=== PATIENT | male | born 1985 | race Two or more races ===

== ENCOUNTER 2024-08-18 05:29 | Emergency (ER) | payer MEDICAID, SELFPAY ==
[2024-08-18 05:35] VITALS: BP 145/85; PULSE 90; PULSE 94; RESP 20; TEMP 37; O2SAT 96; BMI 25.0
--- NOTE | 2024-08-18 06:20 | XR_ITS ---
Examination: AP lateral chest 2 views TECHNIQUE: Upright AP lateral chest 2 views Exam date and time: August 18, 2024 1757 hours Comparison December 13, 2022 INDICATIONS: Chest pain onset today with swelling in the lower extremities. FINDINGS: Normal heart size Mild elevation left hemidiaphragm. No pneumonia or pulmonary edema IMPRESSION: No pneumonia or pulmonary edema
--- NOTE | 2024-08-18 06:20 | EKG_ITS ---
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
--- NOTE | 2024-08-18 06:46 | PD.EDLOWEX ---
Lower Extremity Injury RME/HPI General Chief Complaint: Extremity Injury, Lower Stated Complaint: BODY PAIN Time Seen by Provider: 08/18/24 06:13 Source: patient Arrival date/time: 08/18/24 05:29 39-year-old male with no known medical history presents to the emergency room with a chief complaint of generalized bodyaches and lower extremity swelling x 1 week Mode of arrival: ambulatory Limitations: no limitations Related Data Previous Rx's ?Medication ?Instructions ?Recorded polyethylene glycol 3350 17 gram 17 g PO QDAY #14 ea 12/17/22 oral powder packet (Miralax) Allergies Allergy/AdvReac Type Severity Reaction Status Date / Time Penicillins Allergy Severe ANAPHYLAXIS Verified 12/17/22 16:33 prochlorperazine Allergy Severe SHOCK Verified 12/17/22 16:33 Review of Systems Review of Systems Systems Reviewed: All systems reviewed, normal except as documented Constitutional Constitutional: Reports system reviewed and no additional complaints, except as documented, Denies fatigue, Denies fever(s), Denies headache(s) and Denies weakness Eyes Eyes: Reports system reviewed and no additional complaints, except as documented, Denies blurry vision and Denies change in vision ENT Ears, Nose, Mouth, and Throat: Reports system reviewed and no additional complaints, except as documented, Denies otalgia, Denies headache(s), Denies nasal congestion, Denies throat swelling and Denies vertigo Cardiovascular Cardiovascular: Reports system reviewed and no additional complaints, except as documented, Denies chest pain, Denies dyspnea and Denies dyspnea on exertion Respiratory Respiratory: Reports system reviewed and no additional complaints, except as documented, Denies chest congestion, Denies cough, Denies dyspnea, Denies dyspnea on exertion and Denies wheezing Gastrointestinal Gastrointestinal: Reports system reviewed and no additional complaints, except as documented, Denies abdominal pain, Denies cramping, Denies nausea and Denies vomiting Genitourinary Genitourinary: Reports system reviewed and no additional complaints, except as documented, Denies dysuria and Denies hematuria Musculoskeletal Musculoskeletal: Reports system reviewed and no additional complaints, except as documented, Reports arthralgias, Denies back pain and Reports joint swelling Integumentary/Breasts Skin/Breast: Reports system reviewed and no additional complaints, except as documented and Denies wounds Neurologic Neurologic: Reports system reviewed and no additional complaints, except as documented, Denies confusion, Denies headache(s), Denies lack of coordination, Denies vertigo and Denies weakness Psychiatric Psychiatric: Reports system reviewed and no additional complaints, except as documented, Denies anxiety, Denies confusion, Denies depression, Denies paranoia, Denies suicidal ideation and Denies tactile hallucinations Endocrine Endocrine: Reports system reviewed and no additional complaints, except as documented and Denies fatigue Hematologic/Lymphatic Hematologic/Lymphatic: Reports system reviewed and no additional complaints, except as documented and Denies lymphadenopathy Allergic/Immunologic Allergic/Immunologic: Reports system reviewed and no additional complaints, except as documented, Denies throat swelling, Denies urticaria and Denies wheezing ED Exam General Limitations: Present no limitations General appearance: Present alert and in no apparent distress Head Head exam: Present atraumatic Eye Eye exam: Present normal appearance, PERRL and EOMI ENT ENT exam: Present normal exam, normal oropharynx and mucous membranes moist Neck Neck exam: Present normal inspection, full ROM and trachea midline Chest Chest inspection: Present normal inspection and symmetric chest wall rise Respiratory Respiratory exam: Present normal lung sounds bilaterally Cardiovascular Cardiovascular exam: Present regular rate, normal rhythm and normal heart sounds Abdominal Exam Abdominal exam: Present soft and normal bowel sounds Extremities Exam Extremities exam: Present normal inspection and full ROM Expanded Lower Extremity Exam Hip/Pelvis exam: Present normal inspection Upper leg exam: Present normal inspection Knee exam: Present normal inspection Lower leg exam: Present full ROM, tenderness and swelling Ankle exam: Present full ROM, tenderness and swelling Foot/toe exam: Present full ROM, tenderness and swelling Back Exam Back exam: Present normal inspection and full ROM Neurological Exam Neurological exam: Present alert, oriented X3 and CN II-XII intact Psychiatric Psychiatric exam: Present normal affect and normal mood Skin Skin exam: Present warm, dry, intact and normal color Course Quality Measures none Orders Category Date Time Status EKG (ED ONLY) *Do not use* NOW Care 08/18/24 06:20 Completed EKG (ED Only) Stat Exams 08/18/24 06:20 Draft XR chest 2V Stat Exams 08/18/24 06:20 Taken B-Type Natriuretic Peptide Stat Lab 08/18/24 07:11 Completed CBC Stat Lab 08/18/24 07:11 Completed Comprehensive Metabolic Panel Stat Lab 08/18/24 07:11 Completed Drug Screen,Urine Stat Lab 08/18/24 06:20 Ordered Magnesium Stat Lab 08/18/24 07:11 Completed Troponin I Stat Lab 08/18/24 07:11 Completed Urinalysis Stat Lab 08/18/24 06:20 Ordered Vital Signs Vital signs: Vital Signs Temperature 98.6 F 08/18/24 05:35 Pulse Rate 94 08/18/24 05:35 Respiratory Rate 20 08/18/24 05:35 Blood Pressure 145/85 H 08/18/24 05:35 Pulse Oximetry (%) 96 08/18/24 05:35 Oxygen Delivery Method Room Air 08/18/24 05:35 Procedures -ED EKG Interpretation #1: Date of EK08/18/24 Rate: 83 Interpretation: Reviewed by me EKG Impression: Normal sinus rhythm Additional EKG comment: EKG shows normal sinus rhythm at [address] deviation Extremity Injury, Lower MDM Narrative MDM Narrative:: 39-year-old male with no known medical history presents to the emergency room with a chief complaint of generalized bodyaches and lower extremity swelling x 1 week Patient is hemodynamically stable and in no apparent distress Physical examination shows clear bilateral lung sounds. The patient has lower extremity bilateral +1 edema around the socks. Patient denies any medical problems. Patient denies any chest pain and states his legs just hurt when he walks for long periods of time. Patient is currently homeless and states that he uses methamphetamine and heroin. EKG was completed and shows normal sinus rhythm at [address] deviation. CBC CMP were negative for any acute findings. Troponin was negative. Chest x-ray was negative for any acute findings. Patient was discharged and educated to follow-up with primary care provider in the next 24 to 48 hours and return to the emergency room for any evidence of worsening signs or symptoms Patient data External records reviewed:: [facility] previous records Clinical information provided by:: patient Social determinants that could affect healthcare access:: none Patient has the following chronic illnesses:: No chronic illness How is presenting disease/condition affected by chronic disease/condition?: no chronic disease Evaluation data The following diagnostics were reviewed and interpreted by me:: lab results and radiology exam(s) Lab and/or radiology exams considered but not ordered:: Labs and radiology exams considered and ordered Interpretation Summary: N/A Medications / Prescriptions Medications or Prescriptions considered but not ordered:: No medication given Medication administrations:: No medication given Consultations Consultation(s) initiated? (list below): No Diagnosis Extremity Injury, Lower Differential Diagnosis: other (CHF/methamphetamine abuse/leg pain) Most likely diagnosis given after review of the tests above:: Methamphetamine abuse Admission Indicated Admission indicated?: not indicated Admission Request Was there a request for admission?: No Disposition Plan Disposition Plan: Discharge Discharge Attestation Discharge Attestation: The patient and all family members were given an opportunity to ask questions and understood the discharge instructions. Discharge instructions specifically effects, indications for sooner follow up or return to the emergency department, and the expected course of current diagnosis. Patient condition: Stable Discharge Plan Plan Patient Disposition: HOME (Self Care) Disposition Comment: Stable Prescriptions/Referrals Prescriptions/Med Rec: No Action polyethylene glycol 3350 [Miralax] 17 gram powder in packet 17 g PO QDAY Qty: 14 0RF Referrals: No Primary/Family,Physician [Primary Care Provider] - In 1 week Problem List Clinical Impression: Methamphetamine abuse Patient/Caregiver Discharge Instructions Education Materials: ED Drug Abuse Additional Instructions: Please follow-up with your primary care provider in the next 24 to 48 hours. Your blood work was negative for any acute findings. Please stop using methamphetamine and heroin as this is causing your health problems. For any evidence of worsening signs or symptoms return to the emergency room immediately Print Language: Belarusian Stand Alone Forms: Irina Award Info., Patient Portal Info Letter KERI/SULEMA Supervising Physician KERI/SULEMA Supervising Physician: Dr. Moya
[2024-08-18 07:29] VITALS: BP 143/85; PULSE 88; RESP 18; TEMP 37.2; O2SAT 98
[2024-08-18 07:41] LABS: Basophils % (Auto) 0 % (0-2.5); Eosinophils # (Auto) 0.1 Thou/mm3 (0.0-0.5); Eosinophils % (Auto) 1 % (0-10); Hematocrit 36.6 % (41.0-53.0); Hemoglobin 12.4 g/dL (13.5-16.0); Immature Granulocytes % (Auto) 0 % (0-0); Immature Granulocytes Auto 0.03 Thou/mm3 (0.00-0.00); Lymphocytes # (Auto) 1.4 Thou/mm3 (1.0-4.8); Lymphocytes % (Auto) 16 % (10-50); Mean Corpuscular HGB Conc 33.9 g/dl (31.0-37.0); Mean Corpuscular Hemoglobin 30.2 pg (25.0-35.0); Mean Corpuscular Volume 89 fL (80-100); Monocytes # (Auto) 0.9 Thou/mm3 (0.0-0.8); Monocytes % (Auto) 10 % (0-12); Neutrophils # (Auto) 6.7 Thou/mm3 (1.8-7.7); Neutrophils % (Auto) 73 % (37-80); Nucleated Red Blood Cell % 0 /100 WBC (0); Platelet Count 159 Thou/mm3 (140-440); RDW Standard Deviation 47.2 fL (35.1-43.9); Red Blood Count 4.11 Miln/mm3 (4.50-5.90); White Blood Count 9.2 Thou/mm3 (3.8-10.6)
[2024-08-18 07:50] LABS: Alanine Aminotransferase 328 U/L (10-49); Albumin, Serum 4.4 gm/dL (3.5-5.0); Albumin/Globulin Ratio 1.3 (1.2-2.2); Alkaline Phosphatase 54 U/L (46-116); Anion Gap 7 (7-16); Aspartate Amino Transferase 132 U/L (0-34); BUN/Creatinine Ratio 26 Ratio (12-20); Bilirubin,Total 1.5 mg/dL (0.3-1.2); Blood Urea Nitrogen 23 mg/dL (9-23); Calcium 9.4 mg/dL (8.3-10.6); Calcium (Corrected) 9.4 mg/dL (8.5-10.1); Carbon Dioxide 31.1 mMol/L (20.0-31.0); Chloride 98 mMol/L (98-107); Creatinine (Component) 0.9 mg/dL (0.6-1.3); Estimated Creatinine Clearance 107.7 mL/min (>60); Globulin 3.3 gm/dL (2.3-3.5); Glucose 130 mg/dL (74-106); Magnesium 1.8 mg/dL (1.6-2.6); Osmolality,Calculated 277 (275-295); Potassium 3.8 mMol/L (3.4-5.1); Sodium 136 mMol/L (136-145); Total Protein 7.7 gm/dL (5.7-8.2); Troponin I < 0.002 ng/mL (0.0-0.045); eGFR > 60 See Note
[2024-08-18 08:23] LABS: B-Type Natriuretic Peptide < 20 pg/mL (0-100)
== END 2024-08-18 09:36 | disposition home or self-care (01) ==
PROVIDERS: Nurse Practitioner Family; Emergency Provider Emergency Medicine
DX: F15.10 Other stimulant abuse, uncomplicated (principal); M79.89 Other specified soft tissue disorders; R07.9 Chest pain, unspecified; Z59.00 Homelessness unspecified
CPT/HCPCS: 36415; 71046; 80053; 80307; 81001; 83735; 83880; 84484; 85025; 93005; 99283

== ENCOUNTER 2024-12-18 13:46 | Emergency (ER) | payer MEDICAID, SELFPAY ==
[2024-12-18] VITALS (11 sets, daily range): BP systolic 163–198; BP diastolic 109–124; PULSE 102–113; RESP 16–18; TEMP 37.3–37.4; O2SAT 95–105; BMI 26.6
--- NOTE | 2024-12-18 13:50 | PC.NURSE ---
PT BROUGHT IN BY [facility] FOR MEDICAL CLEARANCE DUE TO HIGH B/P
--- NOTE | 2024-12-18 13:53 | PD.EDMEDCL ---
ED Medical Clearance RME/HPI General Chief complaint: Medical Clearance Stated complaint: HALF-WAY CLEARANCE HIGH B/P Time Seen by Provider: 12/18/24 13:52 Arrival date/time: 12/18/24 13:46 Limitations: no limitations RME / HPI RME / HPI Narrative: DR. HALEY MAIN ED EVALUATION: 39 year old male presents to the Emergency Department brought in by police as a medical clearance due to elevated blood pressure, noted at 198/124. He denies any associated symptoms such as headache, chest pain, or vision changes. He reports occasional alcohol use. Patient has no known past medical history, surgical history, or chronic medications. He does report a penicillin allergy. Related Information Previous Rx's ?Medication ?Instructions ?Recorded polyethylene glycol 3350 17 gram 17 g PO QDAY #14 ea 12/17/22 oral powder packet (Miralax) diltiazem HCl 180 mg 180 mg PO QDAY hypertension #30 12/18/24 capsule,extended release 24 hr caps (Cardizem CD) hydrochlorothiazide 25 mg tablet 25 mg PO QDAY #30 tabs 12/18/24 lisinopril 10 mg tablet 10 mg PO QDAY #30 tabs 12/18/24 Allergies Allergy/AdvReac Type Severity Reaction Status Date / Time Penicillins Allergy Severe ANAPHYLAXIS Verified 12/18/24 13:52 prochlorperazine Allergy Severe SHOCK Verified 12/18/24 13:52 Review of Systems Review of Systems Systems Reviewed: All systems reviewed, normal except as documented Past Medical History Past Medical History CARDIAC: Positive Cardiac Disorders and Hypertension GASTROINTESTINAL: Positive Hepatitis and Pancreatitis MUSCULOSKELETAL: Positive Rheumatoid Arthritis PSYCHO/SOCIAL: Positive Psychiatric Problems, Schizophrenia, Recreational Drug Use, Bipolar Disorder, Depression, Anxiety and Post Traumatic Stress Disorder OTHER HISTORY: Positive Autoimmune Disease and Chicken Pox Family History FAMILY HISTORY: Positive Family Psychiatric Problems, Family Respiratory Disorders, Family Cardiac Disorders, Family Gastrointestinal Problems, Family Cancer and Family Surgery Surgical History SURGICAL: Positive Abdominal Surgery Social History SMOKING STATUS: Never smoker SECOND HAND EXPOSURE: No SUBSTANCE USE: heroin ED Exam General Limitations: Present no limitations General appearance: Present alert, in no apparent distress and other (sitting up in a chair with hands cuffed to the back) Head Head exam: Present atraumatic, normocephalic and normal inspection Eye Eye exam: Present normal appearance, PERRL and EOMI ENT ENT exam: Present normal exam, normal oropharynx and mucous membranes moist Neck Neck exam: Present normal inspection, full ROM and trachea midline Chest Chest inspection: Present normal inspection and symmetric chest wall rise Respiratory Respiratory exam: Present normal lung sounds bilaterally Cardiovascular Cardiovascular exam: Present regular rate, normal rhythm and normal heart sounds Abdominal Exam Abdominal exam: Present soft and normal bowel sounds Extremities Exam Extremities exam: Present normal inspection and full ROM Back Exam Back exam: Present normal inspection and full ROM Neurological Exam Neurological exam: Present alert, oriented X3 and CN II-XII intact Psychiatric Psychiatric exam: Present normal affect and normal mood Skin Skin exam: Present warm, dry, intact and normal color Course Quality Measures none Orders Category Date Time Status EKG (ED ONLY) *Do not use* NOW Care 12/18/24 13:54 Completed Insert [Insert IV] NOW Care 12/18/24 16:55 Completed EKG (ED Only) Stat Exams 12/18/24 13:54 Draft CBC Stat Lab 12/18/24 14:16 Completed CMP [Comprehensive Metabolic Panel] Stat Lab 12/18/24 14:16 Completed Diltiazem Cd [Cardizem Cd] Med 12/18/24 13:53 Discontinued 180 mg PO X1 ONE Lisinopril [Prinivil] Med 12/18/24 15:58 Discontinued 10 mg PO X1 ONE cloNIDine HCL [Catapres] Med 12/18/24 13:53 Discontinued 0.1 mg PO X1 ONE cloNIDine HCL [Catapres] Med 12/18/24 15:57 Discontinued 0.2 mg PO X1 ONE hydrALAZINE INJ [Apresoline Inj] Med 12/18/24 16:55 Discontinued 5 mg IVP X1 ONE hydrALAZINE INJ [Apresoline Inj] Med 12/18/24 17:41 Discontinued 5 mg IVP X1 ONE hydrALAZINE INJ [Apresoline Inj] Med 12/18/24 18:26 Discontinued 5 mg IVP X1 ONE hydroCHLOROthiazide Med 12/18/24 15:58 Discontinued 25 mg PO X1 ONE Vital Signs Vital signs: Vital Signs Temperature 99.1 F 12/18/24 13:50 Pulse Rate 113 H 12/18/24 13:50 Respiratory Rate 16 12/18/24 13:50 Blood Pressure 198/124 H 12/18/24 13:50 Pulse Oximetry (%) 97 12/18/24 13:50 Oxygen Delivery Method Room Air 12/18/24 13:50 Medical Clearance MDM Narrative MDM Narrative:: I, Neelam Mc, am scribing for and in the presence of Dr. Haley. Patient data External records reviewed:: [facility] previous records Clinical information provided by:: patient and law enforcement Social determinants that could affect healthcare access:: alcohol use Patient has the following chronic illnesses:: Patient has no known past medical history, surgical history, or chronic medications. How is presenting disease/condition affected by chronic disease/condition?: no chronic disease Evaluation data The following diagnostics were reviewed and interpreted by me:: lab results and EKG tracing(s) Lab and/or radiology exams considered but not ordered:: none Interpretation Summary: My interpretation: EKG performed at 1434 hours, sinus tachycardia, rate 115, no acute changes, no STEMI Medications / Prescriptions Medications or Prescriptions considered but not ordered:: none Medication administrations:: Medication Administration History Discontinued Medications Clonidine (Clonidine Hcl 0.1 Mg Tablet) 0.1 mg PO X1 ONE Stop: 12/18/24 13:54 Last Admin: 12/18/24 14:13 Dose: 0.1 mg Documented By: [facility] Clonidine (Clonidine Hcl 0.1 Mg Tablet) 0.2 mg PO X1 ONE Stop: 12/18/24 15:58 Last Admin: 12/18/24 16:27 Dose: 0.2 mg Documented By: SERA Diltiazem HCl (Diltiazem Cd 180 Mg Capcr) 180 mg PO X1 ONE Stop: 12/18/24 13:54 Last Admin: 12/18/24 15:02 Dose: 180 mg Documented By: [facility] Hydralazine HCl (Hydralazine Inj 20 Mg/Ml Vial) 5 mg IVP X1 ONE Stop: 12/18/24 16:56 Last Admin: 12/18/24 17:33 Dose: 5 mg Documented By: SERA Hydralazine HCl (Hydralazine Inj 20 Mg/Ml Vial) 5 mg IVP X1 ONE Stop: 12/18/24 17:42 Last Admin: 12/18/24 18:02 Dose: 5 mg Documented By: SERA Hydralazine HCl (Hydralazine Inj 20 Mg/Ml Vial) 5 mg IVP X1 ONE Stop: 12/18/24 18:27 Last Admin: 12/18/24 18:30 Dose: 5 mg Documented By: SERA Hydrochlorothiazide (Hydrochlorothiazide 12.5 Mg Capsule) 25 mg PO X1 ONE Stop: 12/18/24 15:59 Last Admin: 12/18/24 16:26 Dose: 25 mg Documented By: SERA Lisinopril (Lisinopril 2.5 Mg Tablet) 10 mg PO X1 ONE Stop: 12/18/24 15:59 Last Admin: 12/18/24 16:27 Dose: 10 mg Documented By: SERA see above Consultations Consultation(s) initiated? (list below): No Diagnosis Medical Clearance Differential Diagnosis: other (hypertensive emergency/ urgency, hypertension) Most likely diagnosis given after review of the tests above:: Hypertension Admission Indicated Admission indicated?: not indicated Admission Request Was there a request for admission?: No Disposition Plan Disposition Plan: Discharge Discharge Attestation Discharge Attestation: The patient and all family members were given an opportunity to ask questions and understood the discharge instructions. Discharge instructions specifically effects, indications for sooner follow up or return to the emergency department, and the expected course of current diagnosis. Patient condition: Stable Discharge Plan Plan Patient Disposition: Assisted/Court/Law Prescriptions/Referrals Prescriptions/Med Rec: New diltiazem HCl [Cardizem CD] 180 mg capsule,extended release 24hr 180 mg PO QDAY MDD 1 Qty: 30 0RF lisinopril 10 mg tablet 10 mg PO QDAY Qty: 30 0RF hydrochlorothiazide 25 mg tablet 25 mg PO QDAY Qty: 30 0RF No Action polyethylene glycol 3350 [Miralax] 17 gram powder in packet 17 g PO QDAY Qty: 14 0RF Referrals: [facility] [Outside] - In 1 week Problem List Clinical Impression: Hypertension Patient/Caregiver Discharge Instructions Print Language: Palestinian
--- NOTE | 2024-12-18 13:54 | EKG_ITS ---
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
--- NOTE | 2024-12-18 14:20 | PC.NURSE ---
PHARMACY CALLED FOR DILTIAZEM
[2024-12-18 14:30] LABS: Basophils # (Auto) 0.0 Thou/mm3 (0.0-0.2); Basophils % (Auto) 0 % (0-2.5); Eosinophils # (Auto) 0.0 Thou/mm3 (0.0-0.5); Eosinophils % (Auto) 0 % (0-10); Hematocrit 43.3 % (41.0-53.0); Hemoglobin 14.9 g/dL (13.5-16.0); Immature Granulocytes Auto 0.03 Thou/mm3 (0.00-0.00); Lymphocytes # (Auto) 1.9 Thou/mm3 (1.0-4.8); Lymphocytes % (Auto) 22 % (10-50); Mean Corpuscular HGB Conc 34.4 g/dl (31.0-37.0); Mean Corpuscular Hemoglobin 30.3 pg (25.0-35.0); Mean Corpuscular Volume 88 fL (80-100); Monocytes # (Auto) 0.9 Thou/mm3 (0.0-0.8); Monocytes % (Auto) 10 % (0-12); Neutrophils # (Auto) 6.0 Thou/mm3 (1.8-7.7); Neutrophils % (Auto) 67 % (37-80); Nucleated Red Blood Cell # 0.00 Thou/mm3 (0.00-0.00); Nucleated Red Blood Cell % 0 /100 WBC (0); Platelet Count 153 Thou/mm3 (140-440); RDW Standard Deviation 49.8 fL (35.1-43.9); Red Blood Count 4.91 Miln/mm3 (4.50-5.90); White Blood Count 9.0 Thou/mm3 (3.8-10.6)
[2024-12-18 14:51] LABS: Alanine Aminotransferase 239 U/L (10-49); Albumin, Serum 4.9 gm/dL (3.5-5.0); Albumin/Globulin Ratio 1.4 (1.2-2.2); Alkaline Phosphatase 68 U/L (46-116); Anion Gap 10 (7-16); Aspartate Amino Transferase 87 U/L (0-34); BUN/Creatinine Ratio 17 Ratio (12-20); Bilirubin,Total 1.1 mg/dL (0.3-1.2); Blood Urea Nitrogen 20 mg/dL (9-23); Calcium 9.8 mg/dL (8.3-10.6); Calcium (Corrected) 9.8 mg/dL (8.5-10.1); Carbon Dioxide 28.2 mMol/L (20.0-31.0); Chloride 103 mMol/L (98-107); Creatinine (Component) 1.2 mg/dL (0.6-1.3); Estimated Creatinine Clearance 78.0 mL/min (>60); Globulin 3.4 gm/dL (2.3-3.5); Glucose 124 mg/dL (74-106); Osmolality,Calculated 284 (275-295); Potassium 3.5 mMol/L (3.4-5.1); Sodium 141 mMol/L (136-145); Total Protein 8.3 gm/dL (5.7-8.2); eGFR > 60 See Note
--- NOTE | 2024-12-18 14:52 | PC.NURSE ---
pharmacy called again for diltiazem
[2024-12-18] MEDS: DILTIAZEM CD 180 MG CAPCR PO (15:02)
[2024-12-18] MEDS: hydrALAZINE INJ 20 MG/ML VIAL 5 MG IVP ×3 (17:33→18:30)
--- NOTE | 2024-12-18 18:22 | PD.EDADDENDU ---
Emergency Room Addendum Addendum Narrative: I took over the care from previous shift physician, Dr. Haley, at 6 PM on 12/18/24. See previous notes for complete H & P and ED course. I reviewed all diagnostic test results. Diagnoses include: Treatment here included Larry Rai MD
== END 2024-12-18 18:56 ==
PROVIDERS: Emergency Provider Family Medicine
DX: Z02.89 Encounter for other administrative examinations (principal); I10 Essential (primary) hypertension; R00.0 Tachycardia, unspecified
CPT/HCPCS: 36415; 80053; 85025; 93005; 96374; 96376; 99283; J0360; A9270

== ENCOUNTER 2025-04-29 23:12 | Inpatient (IN) | payer MEDICAID, SELFPAY ==
--- NOTE | 2025-04-29 23:15 | XR_ITS ---
EXAMINATION: AP chest single view TECHNIQUE: AP portable upright chest single view Date and time: April [id number], 11:38 p.m. INDICATIONS: Shortness of breath today. FINDINGS: No significant cardiac enlargement taking into account AP projection Reduced inspiratory effort Mild elevation left hemidiaphragm No pneumonia or pulmonary edema IMPRESSION: No pneumonia or pulmonary edema
--- NOTE | 2025-04-29 23:15 | EDNOTE_ITS ---
ED Seizures RME/HPI General Chief Complaint: Seizure Stated Complaint: SEIZURES Time Seen by Provider: 04/29/25 23:14 Arrival date/time: 04/29/25 23:12 RME / HPI MD complaint: seizure Witnessed: yes - by bystander Trauma: Yes Seizure History: none Place: other (Correction) Possible Precipitating Event: none Associated symptoms: syncope RME / HPI Narrative: See MDM for Dr. Rai's HPI Documentation. Related Data Previous Rx's ?Medication ?Instructions ?Recorded polyethylene glycol 3350 17 gram 17 g PO QDAY #14 ea 0 12/17/22 oral powder packet (Miralax) diltiazem HCl 180 mg 180 mg PO QDAY hypertension #30 12/18/24 capsule,extended release 24 hr caps (Cardizem CD) hydrochlorothiazide 25 mg tablet 25 mg PO QDAY #30 tab s 12/18/24 lisinopril 10 mg tablet 10 mg PO QDAY #30 tabs 12/18 Allergies Allergy/AdvReac Type Severity Reaction Status Date / Time Penicillins Allergy Severe ANAPHYLAXIS Verified 12/18/24 13:52 prochlorperazine Allergy Severe SHOCK Verified 12/18/24 13:52 Review of Systems Review of Systems Systems Reviewed: All systems reviewed, normal except as documented Past Medical History Past Medical History CARDIAC: Positive Hypertension GASTROINTESTINAL: Positive Hepatitis and Pancreatitis MUSCULOSKELETAL: Positive Rheumatoid Arthritis PSYCHO/SOCIAL: Positive Psychiatric Problems, Schizophrenia, Recreational Drug Use, Bipolar Disorder, Depression, Anxiety and Post Traumatic Stress Disorder OTHER HISTORY: Positive Autoimmune Disease and Chicken Pox Family History FAMILY HISTORY: Positive Family Psychiatric Problems, Family Respiratory Disorders, Family Cardiac Disorders, Family Gastrointestinal Problems, Family Cancer and Family Surgery Surgical History SURGICAL: Positive Abdominal Surgery Social History SUBSTANCE USE: heroin ED Exam Narrative Physical exam: See [facility] for Dr. Rai's Physical Exam Documentation. Course Quality Measures none Orders Category Date Time Status EKG (ED ONLY) *Do not use* NOW Care 04/29/25 23:15 Completed Aceves [Urinary Catheter] NOW Care 04/30/25 00:50 Active Neuro Check Q2H Care 04/30/25 00:49 Active Saline [Insert IV] NOW Care 04/29/25 23:15 Active Seizure precautions NOW Care 04/30/25 00:49 Active Straight [In and Out Catheter] X1 Care 04/29/25 23:15 Completed Strict Intake and Output Q1H Care 04/30/25 01:00 Ordered Strict Intake and Output Q1H Care 04/30/25 02:00 Ordered Strict Intake and Output Q1H Care 04/30/25 03:00 Ordered Strict Intake and Output Q1H Care 04/30/25 04:00 Ordered Strict Intake and Output Q1H Care 04/30/25 05:00 Ordered Strict Intake and Output Q1H Care 04/30/25 06:00 Ordered Strict Intake and Output Q1H Care 04/30/25 07:00 Ordered Strict Intake and Output Q1H Care 04/30/25 08:00 Ordered Strict Intake and Output Q1H Care 04/30/25 09:00 Ordered Strict Intake and Output Q1H Care 04/30/25 10:00 Ordered Strict Intake and Output Q1H Care 04/30/25 11:00 Ordered Strict Intake and Output Q1H Care 04/30/25 12:00 Ordered Strict Intake and Output Q1 Care 04/30/25 13:00 Ordered Strict Intake and Output Q1H Care 04/30/25 14:00 Ordered Strict Intake and Output Q1H Care 04/30/25 15:00 Ordered Strict Intake and Output Q1H Care 04/30/25 16:00 Ordered Strict Intake and Output Q1 Care 04/30/25 17:00 Ordered Strict Intake and Output Q1 Care 04/30/25 18:00 Ordered Strict Intake and Output Q1H Care 04/30/25 19:00 Ordered Strict Intake and Output Q1H Care 04/30/25 20:00 Ordered Strict Intake and Output Q1H Care 04/30/25 21:00 Ordered Strict Intake and Output Q1H Care 04/30/25 22:00 Ordered Strict Intake and Output Q1H Care 04/30/25 23:00 Ordered Consult to Kindergarten Classroom Teacher Stat Cons 04/30/25 00:[address] cervical spine wo con Stat Exams 04/29/25 23:[address] chest abdomen pelvis wo Stat Exams 04/29/25 23:[address] head/brain wo con Stat Exams 04/29/25 23:16 Completed EKG (ED Only) Stat Exams 04/29/25 23:15 Ordered XR chest 1V portable Stat Exams 04/29/25 23:15 Completed ABG [Arterial Blood Gas] Stat Lab 04/30/25 01:20 Completed Alcohol, Blood Medical Stat Lab 04/29/25 23:20 Completed BMP [Basic Metabolic Panel] Q1H Lab 04/30/25 02:05 Completed BMP [Basic Metabolic Panel] Q1H Lab 04/30/25 03:05 Completed BMP [Basic Metabolic Panel] Q1H Lab 04/30/25 04:19 Completed BMP [Basic Metabolic Panel] Q1H Lab 04/30/25 05:14 Completed BMP [Basic Metabolic Panel] Q1H Lab 04/30/25 06:29 Completed Bilirubin,Direct Stat Lab 04/29/25 23:20 Completed CBC Stat Lab 04/29/25 23:20 Completed CK [Creatine Kinase] Stat Lab 04/29/25 23:20 Completed CMP [Comprehensive Metabolic Panel] Stat Lab 04/29/25 23:20 Completed CMP [Comprehensive Metabolic Panel] Stat Lab 04/30/25 01:03 Completed CRP [C-Reactive Protein] Stat Lab 04/29/25 23:20 Completed Creatine Kinase Stat Lab 04/30/25 01:03 Completed Drug Screen,Urine Stat Lab 04/29/25 23:23 Completed ESR [Sed Rate (ESR)] Stat Lab 04/29/25 23:20 Completed Hemoglobin A1C [Glycohemoglobin w (eAG)] Stat Lab 04/29/25 23:20 Completed Lactate (Lactic Acid) Stat Lab 04/30/25 01:03 Completed Lipid Panel Routine Lab 04/30/25 04:19 Completed Magnesium Routine Lab 04/30/25 02:05 Completed Magnesium Routine Lab 04/30/25 04:19 Completed Magnesium Stat Lab 04/29/25 23:20 Completed Procalcitonin Stat Lab 04/29/25 23:20 Completed TSH [Thyroid Stimulating Hormone] Stat Lab 04/29/25 23:20 Completed UA, C/S IF [Urinalysis, C/S if Indicated] Stat Lab 04/29/25 23:26 Completed VBG [Venous Blood Gas] Stat Lab 04/29/25 23:20 Completed Diazepam Inj [Valium Inj] Med 04/30/25 00:38 Active 20 mg IVP Q5MIN PRN LORazepam [Ativan Inj] Med 04/29/25 23:15 Discontinued 2 mg IVP X1 ONE Ondansetron Inj [Zofran Inj] Med 04/29/25 23:15 Discontinued 4 mg IVP X1 ONE POTASSIUM CHL 10 mEq IVPB [Kcl Ivpb] Med 04/30/25 00:47 Discontinued 10 meq in 100 ml IV Q1H SODIUM CHLORIDE 3%(Hypertonic) [Hypertonic Saline 3%] Med 04/30/25 00:37 Discontinued 500 ml Pre-Mixed [Pre-mixed Bag] 1 bag IV X1 Sodium Chloride 0.9% 1000 ml [Ns] 1,000 ml Med 04/29/25 23:15 Discontinued IV 999 mls/hr levETIRAcetam INJ [Keppra Inj] Med 04/29/25 23:15 Discontinued 2,000 mg IVP X1 ONE Vital Signs Vital signs: Vital Signs Temperature 98.4 F 04/29/25 23:20 Pulse Rate 105 H 04/29/25 23:20 Respiratory Rate 18 04/29/25 23:20 Blood Pressure 140/99 H 04/29/25 23:20 Pulse Oximetry (%) 100 04/29/25 23:20 Oxygen Delivery Method Room Air 04/29/25 23:20 Seizure MDM Narrative MDM Narrative:: This section includes all my notes and documentations, including HPI, PE, and ED course. Larry Rai MD HPI: 40 y/o male with Hx of RA, HTN, and Heroin Abuse BIBA from half-way after seizure. He was talking to his cellmate when he had the seizure. He fell and landed on the back of his head. Can't obtain history from the patient due to postictal state. ROS: Can't obtain from the patient due to current clinical condition. Physical Exam: General: In postictal state. Eyes:? Conjunctivae and lids clear.? EOMI.? PERRL. ENT:? No signs of head trauma. Neck:? Supple.? No tenderness. Heart:? RRR. Lungs:? No respiratory distress.? Good air movement.? No rhonchi, wheezing, rales.? Chest:? No tenderness. Abdomen:? Soft and nontender.? Back:? No tenderness.? Skin:? Warm and dry.? Neuro:? Cranial Nerves II-XII grossly intact.? No peripheral motor deficits. Musculoskeletal:? All major joints and bones are not tender with no limited ROM. I reviewed EMS and half-way notes. I reviewed all diagnostic test results: My interpretation of the EKG is: Sinus tachycardia (121 bpm) with nonspecific ST-T changes. My interpretation of the chest x-ray is: NAD. My review of the Head/Brain CT report is: No acute findings. My review of the C-Spine CT report is: No acute findings. My review of the Chest/Abdomen/Pelvis CT report is: Left lower lobe consolidation. Blood tests and urine tests remarkable for Na 107, K 2.8, LFT elevation, and CK 377. At this point, diagnoses include: Seizure Fall Hyponatremia Hypokalemia LFT elevation Rhabdomyolysis Treatment here included: IVF Keppra 2 G IV Zofran 4 mg IV Ativan 2 IV Ativan 2 mg Patient remained stable. I discussed the case with our raymond mill operator. About the presentation and exam and diagnostics and treatments here. And need of further care in the hospital. Will accept the patient. Larry Rai MD Patient data External records reviewed:: [facility] previous records (Reviewed prior ED records from 12/18/24. Patient was seen for Hypertension.) and EMS form Clinical information provided by:: patient, EMS and law enforcement Social determinants that could affect healthcare access:: housing (Incarcerated) Patient has the following chronic illnesses:: Hypertension, Hepatitis, Pancreatitis, Rheumatoid Arthritis, Schizophrenia, Recr eational Drug Use, Bipolar Disorder, Depression, Anxiety, Post Traumatic Stress Disorder How is presenting disease/condition affected by chronic disease/condition?: exacerbated by Evaluation data The following diagnostics were reviewed and interpreted by me:: lab results, radiology exam(s) and EKG tracing(s) (My interpretation of the EKG is: Sinus tachycardia (121 bpm) with nonspecific ST-T changes. Larry Rai MD) Lab and/or radiology exams considered but not ordered:: None Interpretation Summary: I reviewed all diagnostic test results: My interpretation of the EKG is: Sinus tachycardia (121 bpm) with nonspecific ST-T changes. My interpretation of the chest x-ray is: NAD. My review of the Head/Brain CT report is: No acute findings. My review of the C-Spine CT report is: No acute findings. My review of the Chest/Abdomen/Pelvis CT report is: Left lower lobe consolidation. Blood tests and urine tests remarkable for Na 107, K 2.8, LFT elevation, and CK 377. Medications / Prescriptions Medications or Prescriptions considered but not ordered:: None Medication administrations:: Medication Administration History Acetaminophen (Acetaminophen 325 Mg Tablet) 650 mg PO Q6H PRN PRN Reason: Fever >101.5 Stop: 05/30/25 02:18 Diazepam (Diazepam Inj 5 Mg/Ml Vial 2 Ml) 20 mg IVP Q5MIN PRN PRN Reason: SEIZURES Stop: 05/05/25 00:37 Heparin Sodium (Porcine) (Heparin Sod Inj 5000 Unit/Ml Vial) 5,000 unit SC Q8HR [facility] Stop: 05/14/25 05:59 Last Admin: 04/30/25 14:07 Dose: 5,000 unit Documented By: JEISON Co-signed By: anselmo Admin: 04/30/25 07:47 Dose: 5,000 unit Documented By: SHAWNEE Co-signed By: JEISON Dextrose (D5w) 1,000 mls @ 100 mls/hr IV .Q10H [facility] Stop: 05/01/25 07:14 Ondansetron HCl (Ondansetron Inj 2 Mg/Ml Inj 2 Ml) 4 mg IVP Q6H PRN; Protocol PRN Reason: NAUSEA OR VOMITING Stop: 05/30/25 02:18 Pantoprazole Sodium (Pantoprazole Inj 40 Mg Vial) 40 mg IVP QDAY [facility] Stop: 05/30/25 08:59 Last Admin: 04/30/25 08:29 Dose: 40 mg Documented By: JEISON Discontinued Medications Desmopressin Acetate (Desmopressin Acetate 4 Mcg/Ml Vial) 2 mcg IV X1 ONE Stop: 04/30/25 03:31 Last Admin: 04/30/25 03:29 Dose: 2 mcg Documented By: DAFNE Desmopressin Acetate (Desmopressin Acetate 4 Mcg/Ml Vial) 2 mcg IV X1 ONE Stop: 04/30/25 04:16 Last Admin: 04/30/25 04:27 Dose: 2 mcg Documented By: SHAWNEE Haloperidol Lactate (Haloperidol Lact Inj 5 Mg/Ml Vial) 10 mg IV X1 ONE Stop: 04/30/25 16:15 Last Admin: 04/30/25 16:16 Dose: 10 mg Documented By: anselmo Comments: severe agitation Haloperidol Lactate (Haloperidol Lact Inj 5 Mg/Ml Vial) Confirm Administered Dose 10 mg .ROUTE .STK-MED ONE Stop: 04/30/25 16:11 Last Admin: 04/30/25 16:31 Dose: Not Given Documented By: anselmo Non-Admin Reason: Duplicate Medication on eMAR Sodium Chloride (Ns) 1,000 mls @ 999 mls/hr IV .Q1H1M ONE Stop: 04/30/25 00:15 Last Infusion: 04/30/25 02:28 Dose: Infused Documented By: Admin: 04/29/25 23:47 Dose: 999 mls/hr Documented By: BOBBI Sodium Chloride 500 ml/ IV (Miscellaneous Supplies) 500 mls @ 30 mls/hr IV X1 ONE Stop: 04/30/25 17:16 Last Infusion: 04/30/25 01:59 Dose: 0 mls/hr Documented By: Admin: 04/30/25 00:50 Dose: 30 mls/hr Documented By: BOBBI Potassium Chloride (Kcl Ivpb) 10 meq in 100 mls @ 100 mls/hr IV Q1H [facility] Stop: 04/30/25 06:46 Last Admin: 04/30/25 07:06 Dose: 100 mls/hr Documented By: Infusion: 04/30/25 06:47 Dose: Infused Documented By: Admin: 04/30/25 05:47 Dose: 100 mls/hr Documented By: Infusion: 04/30/25 05:36 Dose: Infused Documented By: Admin: 04/30/25 04:36 Dose: 100 mls/hr Documented By: Infusion: 04/30/25 04:27 Dose: Infused Documented By: Admin: 04/30/25 03:27 Dose: 100 mls/hr Documented By: Infusion: 04/30/25 03:21 Dose: Infused Documented By: Admin: 04/30/25 02:21 Dose: 100 mls/hr Documented By: Infusion: 04/30/25 02:11 Dose: Infused Documented By: Admin: 04/30/25 01:11 Dose: 100 mls/hr Documented By: EE Dextrose (D5w) 1,000 mls @ 200 mls/hr IV .Q5H [facility] Stop: 05/30/25 04:14 Dextrose (D5w) 1,000 mls @ 150 mls/hr IV .Q6H40M [facility] Stop: 05/30/25 04:14 Last Infusion: 04/30/25 06:30 Dose: 230 mls/hr Documented By: Admin: 04/30/25 04:20 Dose: 150 mls/hr Documented By: MALLORY Magnesium Sulfate (Magnesium Sulfate Ivpb) 4 gm in 50 mls @ 12.5 mls/hr IV X1 ONE Stop: 04/30/25 08:15 Last Admin: 04/30/25 05:00 Dose: 12.5 mls/hr Documented By: MALLORY Dextrose (D5w) 1,000 mls @ 230 mls/hr IV .Q4H21M [facility] Stop: 05/30/25 04:14 Last Admin: 04/30/25 13:56 Dose: 230 mls/hr Documented By: Infusion: 04/30/25 13:43 Dose: Infused Documented By: Admin: 04/30/25 09:22 Dose: 230 mls/hr Documented By: Admin: 04/30/25 08:28 Dose: Not Given Documented By: JEISON Non-Admin Reason: already running when came on shift Dextrose (D5w) 1,000 mls @ 175 mls/hr IV .Q5H43M [facility] Stop: 05/30/25 14:32 Last Infusion: 04/30/25 17:38 Dose: Infused Documented By: anselmo Admin: 04/30/25 16:31 Dose: 175 mls/hr Documented By: anselmo Levetiracetam (Levetiracetam Inj 100 Mg/Ml Vial 5ml) 2,000 mg IVP X1 ONE Stop: 04/29/25 23:16 Last Admin: 04/29/25 23:46 Dose: 2,000 mg Documented By: BOBBI Lorazepam (Lorazepam 2 Mg/Ml Vial) 2 mg IVP X1 ONE Stop: 04/29/25 23:16 Last Admin: 04/29/25 23:46 Dose: 2 mg Documented By: BOBBI Lorazepam (Lorazepam 2 Mg/Ml Vial) 2 mg IVP X1 ONE Stop: 04/30/25 16:06 Last Admin: 04/30/25 16:09 Dose: 2 mg Documented By: anselmo Comments: agitation Ondansetron HCl (Ondansetron Inj 2 Mg/Ml Inj 2 Ml) 4 mg IVP X1 ONE; Protocol Stop: 04/29/25 23:16 Last Admin: 04/29/25 23:47 Dose: 4 mg Documented By: BOBBI Treatment here from [place] included: IVF Keppra 2 G IV Zofran 4 mg IV Ativan 2 IV Ativan 2 mg Consultations Consultation(s) initiated? (list below): Yes Consultation #1 (Physician, Specialty, Details): I discussed the case with our raymond mill operator. About the presentation and exam and diagnostics and treatments here. And need of further care in the hospital. Will accept the patient. Time: 00:06 Diagnosis Seizure Differential Diagnosis: intractable seizure disorder, focal seizure, generalized seizure, new onset seizure, epileptic seizure and status epilepticus Most likely diagnosis given after review of the tests above:: Seizure Fall Hyponatremia Hypokalemia LFT elevation Rhabdomyolysis Admission Indicated Admission indicated?: indicated Explain why admission is indicated or not indicated:: Seizure Fall Hyponatremia Hypokalemia LFT elevation Rhabdomyolysis Admission Request Was there a request for admission?: Yes Admission Attestation Admission request attestation: Discussed case with ICU service regarding admission. Discussed patients ED course, exam findings, labs, and radiology results. Agreed to accept the patient for admission. Disposition Plan Disposition Plan: Admit Critical Care Time Critical Care Time Critical Care Time: Yes Total Critical Care Time (min.): 36 Attestation: Due to a high probability of clinically significant, life threatening deterioration, the patient required my highest level of preparedness to intervene emergently and I personally spent this critical care time directly and personally managing the patient. This critical care time included obtaining a history; examining the patient; ordering and review of studies; arranging urgent treatment with development of a management plan; evaluation of patient's response to treatment; frequent reassessment; and discussions with family and other providers. It was exclusive of separately billable procedures and treating other patients and teaching time. Larry Rai MD Discharge Plan Plan Patient Disposition: Admit Acute Care w/in Hospital Problem List Clinical Impression: Seizure, Fall, Hyponatremia, Hypokalemia, LFT elevation, Rhabdomyolysis
[2025-04-29 23:16] VITALS: PULSE 120; BMI 26.6
--- NOTE | 2025-04-29 23:16 | XR_ITS ---
Examination: CT chest, without intravenous contrast. CT abdomen, without intravenous contrast. CT pelvis, without intravenous contrast. 2-D sagittal and coronal reconstructions. 3-D reconstructions. Date and time of exam: April 30, 2025, 0005 hours INDICATIONS: Seizure today, patient fell with injury to the chest and abdomen, chest pain abdomen pain CTDI vol (mgy) 12.61 DLP (MGycm) 900 Technique: Multiple CT images, 3.0 mm slice thickness, obtained chest, abdomen, pelvis, with the high-resolution 64 slice scanner.. Sagittal and coronal 2-D reconstructions are obtained. 3-D reconstructions Low dose protocols were performed. One or more of the following dose reduction techniques were used; automated exposure control, adjustment of the mA and/or KV according to patient size, use of iterative reconstruction technique. Findings: Thoracic aorta pulmonary arteries intact No pneumothorax pulmonary contusion or hemothorax Manubrium and body of the sternum intact Significant osteopenia for a patient of this age No acute thoracic lumbar or sacral fracture No acute displaced rib fractures Atelectasis in the left lower lobe No visualized liver splenic or renal lesion or laceration Gallstones Abdominal aorta intact, no free blood in the abdomen Negative for pneumoperitoneum No bowel obstruction Extensive artifact from arm immobilization devices Bones of the pelvis hips intact IMPRESSION: Thoracic aorta pulmonary arteries intact No pneumothorax pulmonary contusion Probable atelectasis in the left lower lobe No abdominal parenchymal laceration Cholelithiasis No abdominal parenchymal laceration Abdominal aorta intact No free blood in the abdomen or pelvis
--- NOTE | 2025-04-29 23:16 | XR_ITS ---
Examination: CT brain head without contrast. 2-D sagittal coronal reconstructions Date and time of exam: April 30, 2025, 0002 hours INDICATIONS: Seizure today, patient fell with injury to the head, head pain CTDI: vol (mGy): 53.40 DLP: (mGycm): 1022 Technique: Multiple CT axial sections of the brain have been obtained, 5 mm slice thickness. Contrast has not been administered. 2-D sagittal, coronal reconstructions have been obtained Low dose protocols were performed. One or more of the following dose reduction techniques were used; automated exposure control, adjustment of the mA and/or KV according to patient size, use of iterative reconstruction technique. Findings: No significant ventricular enlargement. Intra-axial or extra-axial hemorrhage density is not seen. No mass effect or midline shift Basal cisterns are not remarkable. Fourth ventricle is midline. Cranial vault intact. Impression: Negative for acute hemorrhage, mass effect or midline shift
--- NOTE | 2025-04-29 23:16 | XR_ITS ---
Examination: CT cervical spine without contrast 2-D sagittal reconstructions 2-D coronal reconstructions 3-D reconstructions. Exam date and time: April 30, 2025, 0004 hours INDICATIONS: Seizure today, patient fell with injury to the neck, neck pain CTDI:vol (mGy) 14.36 DLP: (mGycm) 390 Technique: Multiple 2 mm axial sections of the cervical spine have been obtained. The coronal and sagittal reconstructions have been obtained. 3-D reconstructions have been obtained. Low dose protocols were performed. One or more of the following dose reduction techniques were used; automated exposure control, adjustment of the mA and/or KV according to patient size, use of iterative reconstruction technique. Findings: Axial sections demonstrate intact base of the skull. C1 exhibit satisfactory relationship to the odontoid. No acute cervical vertebral body fracture seen. Alignment posterior spinous processes satisfactory. Impression: No acute cervical fracture.
[2025-04-29 23:20] VITALS: BP 140/99; PULSE 105; RESP 18; TEMP 36.9; O2SAT 100
[2025-04-29 23:34] LABS: Collection Type, Urine Clean Catch; Squamous Epithelial Cell,Urine 0 /hpf (0-5)
[2025-04-29 23:35] LABS: Base Excess, Venous -9 (-3-3); O2 Saturation, Venous 99 % (96-97); PCO2, Venous 28 mmHg (36-56); PO2, Venous 113 mmHg (15-58); pH, Venous 7.35 (7.33-7.66)
[2025-04-29 23:36] LABS: Basophils # (Auto) 0.0 Thou/mm3 (0.0-0.2); Basophils % (Auto) 0 % (0-2.5); Eosinophils # (Auto) 0.2 Thou/mm3 (0.0-0.5); Eosinophils % (Auto) 2 % (0-10); Hematocrit 34.1 % (41.0-53.0); Hemoglobin 12.9 g/dL (13.5-16.0); Immature Granulocytes Auto 0.03 Thou/mm3 (0.00-0.00); Lymphocytes # (Auto) 3.8 Thou/mm3 (1.0-4.8); Lymphocytes % (Auto) 42 % (10-50); Mean Corpuscular HGB Conc 37.8 g/dl (31.0-37.0); Mean Corpuscular Hemoglobin 31.5 pg (25.0-35.0); Mean Corpuscular Volume 83 fL (80-100); Monocytes # (Auto) 0.8 Thou/mm3 (0.0-0.8); Monocytes % (Auto) 9 % (0-12); Neutrophils # (Auto) 4.1 Thou/mm3 (1.8-7.7); Neutrophils % (Auto) 46 % (37-80); Nucleated Red Blood Cell # 0.00 Thou/mm3 (0.00-0.00); Nucleated Red Blood Cell % 0 /100 WBC (0); Platelet Count 170 Thou/mm3 (140-440); RDW Standard Deviation 38.8 fL (35.1-43.9); Red Blood Count 4.10 Miln/mm3 (4.50-5.90); White Blood Count 9.0 Thou/mm3 (3.8-10.6)
[2025-04-29 23:42] LABS: Bilirubin,Urine Negative (Negative); Blood,Urine Negative (Negative); Clarity,Urine Clear (Clear/Hazy); Color,Urine Colorless (Lt Yel-Yel); Culture Indicated,Urine Not Indicated; Glucose, Urine Negative (Negative); Ketones,Urine Negative (Negative); Leukocyte Esterase,Urine Negative (Negative); Nitrite,Urine Negative (Negative); PH,Urine 7.0 (5.0-7.0); Protein,Urine Negative (Neg - Trace); RBC,Urine < 1 /hpf (0-3); Specific Gravity,Urine 1.001 (1.001-1.035); Urobilinogen,Urine Negative mg/dL (0.0-1.0); WBC,Urine < 1 /hpf (0-5)
[2025-04-29] MEDS: LORazepam 2 MG/ML VIAL IVP (23:46)
[2025-04-29] MEDS: levETIRAcetam INJ 100 MG/ML VIAL 5ML 2000 MG IVP (23:46)
[2025-04-29] MEDS: ONDANSETRON INJ 2 MG/ML INJ 2 ML 4 MG IVP (23:47)
[2025-04-29] MEDS: SODIUM CHLORIDE 0.9% 1000 ML 1,000 ML 999 ML IV (23:47)
[2025-04-29 23:49] LABS: Amphetamine/Methamp Scrn,U Negative (Negative); Barbiturate Screen,Urine Negative (Negative); Benzodiazepines Screen,Urine Negative (Negative); Benzoylecgonine Screen, Ur Negative (Negative); Fentanyl Screen,Urine Negative (Negative); Opiate Screen,Urine Negative (Negative); THC Screen,Urine Negative (Negative)
[2025-04-30] VITALS (80 sets, daily range): BP systolic 105–178; BP diastolic 55–103; PULSE 57–112; RESP 11–100; TEMP 36.1–37; O2SAT 68–100
[2025-04-30 00:03] LABS: Alanine Aminotransferase 217 U/L (10-49); Albumin, Serum 5.1 gm/dL (3.5-5.0); Albumin/Globulin Ratio 2.0 (1.2-2.2); Alcohol, Blood Medical < 3.0 mg/dL (0-10.0); Alkaline Phosphatase 67 U/L (46-116); Anion Gap 19 (7-16); Aspartate Amino Transferase 99 U/L (0-34); BUN/Creatinine Ratio 7 Ratio (12-20); Bilirubin,Direct 0.6 mg/dL (0.0-0.3); Bilirubin,Total 1.4 mg/dL (0.3-1.2); Blood Urea Nitrogen 7 mg/dL (9-23); C-Reactive Protein < 0.5 mg/dL (0.0-0.9); Calcium 9.1 mg/dL (8.3-10.6); Calcium (Corrected) 9.1 mg/dL (8.5-10.1); Carbon Dioxide 15.1 mMol/L (20.0-31.0); Chloride 73 mMol/L (98-107); Creatine Kinase 377 U/L (34-171); Creatinine (Component) 1.0 mg/dL (0.6-1.3); Estimated Creatinine Clearance 96.0 mL/min (>60); Globulin 2.6 gm/dL (2.3-3.5); Glucose 155 mg/dL (74-106); Magnesium 1.6 mg/dL (1.6-2.6); Osmolality,Calculated 219 (275-295); Potassium 2.8 mMol/L (3.4-5.1); Procalcitonin 0.06 ng/ml (0.0-0.49); Thyroid Stimulating Hormone 3.88 uIU/mL (0.55-4.78); Total Protein 7.7 gm/dL (5.7-8.2); eGFR > 60 See Note
[2025-04-30 00:05] LABS: Sodium 107 mMol/L (136-145)
[2025-04-30 00:06] LABS: Sed Rate (ESR) 1 mm/hr (0-15)
[2025-04-30 00:19] LABS: Glucose Estimated Average 97 mg/dL (80-131); Hemoglobin A1C 5.0 % Hgb (4.8-6.0)
[2025-04-30] MEDS: SODIUM CHLORIDE 3%(Hypertonic) 500 ML in PRE-MIXED 1 BAG 30 ML IV (00:50)
[2025-04-30] MEDS: POTASSIUM CHL 10 mEq IVPB 10 MEQ/100 ML BAG 100 MEQ IV ×6 (01:11→07:06)
[2025-04-30 01:28] LABS: Lactate (Lactic Acid) 2.6 mMol/L (0.4-2.0)
[2025-04-30 01:32] LABS: Allen Test Performed/OK; Base Excess 0 (-3-3); HCO3 24 mEq/L (20-26); Inspired Oxygen, FIO2 21 %; O2 Saturation 98 % (91-98); PCO2 34 mmHg (32.0-48.0); PO2 90 mmHg (83-108); Puncture Site Right Radial; pH, Arterial 7.45 (7.35-7.45)
[2025-04-30 02:02] LABS: Alanine Aminotransferase 198 U/L (10-49); Albumin, Serum 4.6 gm/dL (3.5-5.0); Albumin/Globulin Ratio 1.8 (1.2-2.2); Alkaline Phosphatase 58 U/L (46-116); Anion Gap 11 (7-16); Aspartate Amino Transferase 94 U/L (0-34); BUN/Creatinine Ratio 9 Ratio (12-20); Bilirubin,Total 1.2 mg/dL (0.3-1.2); Blood Urea Nitrogen 7 mg/dL (9-23); Calcium 9.0 mg/dL (8.3-10.6); Calcium (Corrected) 9.0 mg/dL (8.5-10.1); Carbon Dioxide 21.3 mMol/L (20.0-31.0); Chloride 77 mMol/L (98-107); Creatine Kinase 684 U/L (34-171); Creatinine (Component) 0.8 mg/dL (0.6-1.3); Estimated Creatinine Clearance 119.9 mL/min (>60); Globulin 2.5 gm/dL (2.3-3.5); Glucose 122 mg/dL (74-106); Osmolality,Calculated 220 (275-295); Potassium 2.8 mMol/L (3.4-5.1); Total Protein 7.1 gm/dL (5.7-8.2); eGFR > 60 See Note
[2025-04-30 02:05] LABS: Sodium 109 mMol/L (136-145)
--- NOTE | 2025-04-30 02:10 | PRELIM_ITS ---
CT scan of the head without intravenous contrast (axial sections with sagittal and coronal reformats) April 30, 2025 0002 hours Clinical History: Seizure and head injury Comparison: None available at the time of this report. Findings: No evidence of intracranial hemorrhage, mass effect or midline shift. The ventricles and CSF spaces are unremarkable. The calvarium is intact. The mastoid air cells and the visualized paranasal sinuses are clear. Impression: No evidence of intracranial hemorrhage, midline shift or calvarial fracture. Report Electronically Signed By: Jose Puente 04/30/2025 2:10:19 AM [EST]
--- NOTE | 2025-04-30 02:11 | PRELIM_ITS ---
CT scan of the cervical spine without intravenous contrast (axial sections with sagittal and coronal reformats) April 30, 2025 0004 hours Clinical History: Trauma Comparison: None available at the time of this report. Findings: There is no fracture or subluxation. The prevertebral soft tissues are unremarkable. Impression: No evidence of fracture or subluxation. Report Electronically Signed By: Jose Puente 04/30/2025 2:11:03 AM [EST]
--- NOTE | 2025-04-30 02:27 | PRELIM_ITS ---
CT scan of the chest, abdomen and pelvis without intravenous contrast (axial sections with sagittal and coronal reformats) April 30, 2025 0005 hours Clinical History: Fall Comparison: None available at the time of this report. Findings: Left lower lobe consolidation. There is no pleural effusion or pneumothorax. The aorta is within normal limits for age on this noncontrast study. There is no mediastinal collection. There is no pericardial effusion. The liver, gallbladder, spleen, pancreas, adrenals and kidneys are unremarkable on this noncontrast study. The bowel is unremarkable. The urinary bladder is unremarkable. There is no free fluid or free air. Degenerative changes of the imaged portions of the spine. Chronic multilevel disc disease. No acute fractures. Vascular calcifications. Impression: No acute fractures. Left lower lobe consolidation, contusions versus pneumonia versus scarring versus atelectasis. Report Electronically Signed By: Jose Puente 04/30/2025 2:26:48 AM [EST]
[2025-04-30 03:05] LABS: Anion Gap 12 (7-16); BUN/Creatinine Ratio 7 Ratio (12-20); Blood Urea Nitrogen < 5 mg/dL (9-23); Calcium 9.1 mg/dL (8.3-10.6); Carbon Dioxide 18.7 mMol/L (20.0-31.0); Chloride 80 mMol/L (98-107); Creatinine (Component) 0.7 mg/dL (0.6-1.3); Estimated Creatinine Clearance 137.1 mL/min (>60); Glucose 106 mg/dL (74-106); Osmolality,Calculated 222 (275-295); Potassium 3.2 mMol/L (3.4-5.1); eGFR > 60 See Note
--- NOTE | 2025-04-30 03:11 | PD.RESHP ---
Documentation for date of: 04/30/25 HPI History of Present Illness Chief complaint: Seizure History of present illness: This patient is a 40-year-old male with past medical history of schizoaffective disorder and hypertension was brought in to the ED from [facility]/prison on 04/29/2025 with chief complaint of altered mental status/postictal confusion after an episode of seizure at the prison. Nurse was contacted from prison after calling at [phone] to get further history. She stated that patient had a seizure episode lasting for 3 minutes spontaneously seizing on its own. Patient did hit his head on the floor. He did not had a bladder or bowel incontinence however he remained in postictal confusion and was not responding. There was foaming seen around his mouth and he was having trouble breathing. Blood sugars at that time were 121 mg/dL and oxygen was placed. At baseline patient is alert and oriented x 3. He had no episode of seizures before. EMS arrived at the scene and found him confused and anxious and brought him to the ED. In the ED, patient's vital showed blood pressure 140/99 heart rate 105, respiratory rate 18 and afebrile. He was saturating well on room air. Labs showed hemoglobin 12.9, platelet 170. ABG showed pH 7.45, pCO2 34, pO2 90. Chemistry panel showed critical hyponatremia with sodium 107, hypokalemia potassium 2.8, hypochloremia chloride 73 with bicarb 15.1. Anion gap 19. BUN 7 and creatinine 1.0 baseline creatinine 0.9 from 08/18/2024. Blood glucose 155. A1c 5.0. Lactic acid 2.6. Magnesium 1.4. T. bili 1.4 down trended to 1.2. AST and ALT mildly elevated. AST 99 and ALT 217. Total creatinine kinase 377 down trended to 684. Troponin I was negative. Procalcitonin was negative. TSH within normal limits. Urinalysis was colorless with specific gravity 1.001. pH 7.0. U tox was negative. Chart review showed patient has hep C reactive antibody. COVID was negative. Head CT showed no acute changes. Cervical spine CT showed no evidence of fracture. CT chest showed left lower lobe consolidation, contusion versus pneumonia. Patient was given loading dose of Keppra 2 g x 1, IV Zofran, and Ativan 2 mg IV x 1, hypertonic saline 3% at 30 cc/h, IV 60 mEq KCl IV was started. As soon as Aceves catheter was placed patient started putting out less urine around 3.5 L therefore 3% hypertonic saline was stopped as repeat sodium showed spontaneous correction from 107->109->111 in 4 hours. Desmopressin was administered to IV 2 mcg x 1. However patient was still dumping urine around 1.8 L post first desmopressin therefore another desmopressin 2 mcg was administered and D5W at 150 cc/h were started to avoid rapid correction of sodium as recent sodium is 114. PMH: As above PSH: Nonsignificant Allergies: Penicillin and prochlorperazine causes shock SH: Remote history of drinking alcohol and history of meth use Home medications: Buspirone 10 mg once daily, Cardizem 180 mg once daily, hydrochlorothiazide 25 mg once daily, lisinopril 10 mg once daily, lithium 300 mg twice daily, olanzapine 10 mg once a day Patient is admitted to ICU for management of symptomatic hypoosmolar euvolemic hyponatremia with seizures due to medication [lithium] and possible psychogenic polydipsia. Review of Systems Review of Systems ROS Unobtainable: unobtainable due to mental status Past Medical History Past Medical History CARDIAC: Positive Hypertension GASTROINTESTINAL: Positive Hepatitis and Pancreatitis MUSCULOSKELETAL: Positive Rheumatoid Arthritis PSYCHO/SOCIAL: Positive Psychiatric Problems, Schizophrenia, Recreational Drug Use, Bipolar Disorder, Depression, Anxiety and Post Traumatic Stress Disorder OTHER HISTORY: Positive Autoimmune Disease and Chicken Pox Family History FAMILY HISTORY: Positive Family Psychiatric Problems, Family Respiratory Disorders, Family Cardiac Disorders, Family Gastrointestinal Problems, Family Cancer and Family Surgery Surgical History SURGICAL: Positive Abdominal Surgery Social History SUBSTANCE USE: heroin Exam Vital Signs Temp Pulse Resp BP Pulse Ox O2 Del Method 98 F 65 18 121/81 96 Room Air 04/30/25 01:59 04/30/25 02:30 04/30/25 02:30 04/30/25 01:59 04/30/25 01:59 04/30/25 01:59 Narrative Exam GENERAL APPEARANCE: Patient is alert but confused, opening his eyes spontaneously but not following commands. HEENT: NC, AT. Dry mucous membrane. EOMI, clear conjunctiva, oropharynx clear. NECK: Supple without lymphadenopathy. No stiffness or restricted ROM. HEART: Sinus tachycardia with regular rhythm, normal S1/S2, no m/r/g LUNGS: CTAB, moving air well. No crackles or wheezes are heard. ABDOMEN: Soft, nontender, nondistended with good bowel sounds heard. BACK: No CVAT, no obvious deformity. EXTREMITIES: Without cyanosis, clubbing or edema. NEUROLOGICAL: Grossly nonfocal. Alert and oriented, moving all 4 extremities. CN not formally tested but appear grossly intact. Skin: Warm and dry without any rash. Psych: Alert but confused not following commands Results: Labs 05/01/25 03:45 05/01/25 01:18 Labs: Short CBC 04/29/25 Range/Units 23:20 WBC 9.0 (3.8-10.6) Thou/mm3 Hgb 12.9 L (13.5-16.0) g/dL Hct 34.1 L (41.0-53.0) % Plt Count 170 (140-440) Thou/mm3 BMP 04/29/25 04/30/25 23:20 01:03 Sodium 107 L* 109 L* Potassium 2.8 L 2.8 L Chloride 73 L* 77 L* Carbon Dioxide 15.1 L 21.3 BUN 7 L 7 L Creatinine 1.0 0.8 Glucose 155 H 122 H Calcium 9.1 9.0 Cardiac Enzymes 04/29/25 04/30/25 Range/Units 23:20 01:03 Total Creatine Kinase 377 H 684 H D (34-171) U/L Liver Function 04/29/25 04/30/25 Range/Units 23:20 01:03 Total Bilirubin 1.4 H 1.2 (0.3-1.2) mg/dL Direct Bilirubin 0.6 H (0.0-0.3) mg/dL AST 99 H 94 H (0-34) U/L ALT 217 H 198 H (10-49) U/L Alkaline Phosphatase 67 58 (46-116) U/L Albumin 5.1 H 4.6 D (3.5-5.0) gm/dL Urine 04/29/25 Range/Units 23:26 Urine Color Colorless A (Lt Yel-Yel) Urine Clarity Clear (Clear/Hazy) Urine pH 7.0 (5.0-7.0) Ur Specific [place] 1.001 (1.001-1.035) Urine Protein Negative (Neg - Trace) Urine Glucose (UA) Negative (Negative) ABG Interpretation ABG results: 04/29/25 04/30/25 23:20 01:20 ABG pH 7.45 ABG pCO2 34 ABG pO2 90 ABG HCO3 24 ABG O2 Saturation 98 ABG Base Excess 0 VBG pH 7.35 VBG pCO2 28 L VBG pO2 113 H VBG Base Excess -9 L Quality Measures Quality Measures VTE prophylaxis (Heparin SC ) Medications Home Medications and Allergies Allergies Allergy/AdvReac Type Severity Reaction Status Date / Time Penicillins Allergy Severe ANAPHYLAXIS Verified 12/18/24 13:52 prochlorperazine Allergy Severe SHOCK Verified 12/18/24 13:52 Visit Medications Acetaminophen (Acetaminophen 325 Mg Tablet) 650 mg PO Q6H PRN PRN Reason: Fever >101.5 Stop: 05/30/25 02:18 Diazepam (Diazepam Inj 5 Mg/Ml Vial 2 Ml) 20 mg IVP Q5MIN PRN PRN Reason: SEIZURES Stop: 05/05/25 00:37 Heparin Sodium (Porcine) (Heparin Sod Inj 5000 Unit/Ml Vial) 5,000 unit SC Q8HR [facility] Stop: 05/14/25 05:59 Sodium Chloride 500 ml/ IV (Miscellaneous Supplies) 500 mls @ 30 mls/hr IV X1 ONE On Hold: 04/30/25 01:58 Stop: 04/30/25 17:16 Last Infusion: 04/30/25 01:59 Dose: 0 mls/hr Potassium Chloride (Kcl Ivpb) 10 meq in 100 mls @ 100 mls/hr IV Q1H [facility] Stop: 04/30/25 06:46 Last Admin: 04/30/25 02:21 Dose: 100 mls/hr Ondansetron HCl (Ondansetron Inj 2 Mg/Ml Inj 2 Ml) 4 mg IVP Q6H PRN; Protocol PRN Reason: NAUSEA OR VOMITING Stop: 05/30/25 02:18 Pantoprazole Sodium (Pantoprazole Inj 40 Mg Vial) 40 mg IVP QDAY [facility] Stop: 05/30/25 08:59 Discontinued Medications Sodium Chloride (Ns) 1,000 mls @ 999 mls/hr IV .Q1H1M ONE Stop: 04/30/25 00:15 Last Infusion: 04/30/25 02:28 Dose: Infused Levetiracetam (Levetiracetam Inj 100 Mg/Ml Vial 5ml) 2,000 mg IVP X1 ONE Stop: 04/29/25 23:16 Last Admin: 04/29/25 23:46 Dose: 2,000 mg Lorazepam (Lorazepam 2 Mg/Ml Vial) 2 mg IVP X1 ONE Stop: 04/29/25 23:16 Last Admin: 04/29/25 23:46 Dose: 2 mg Ondansetron HCl (Ondansetron Inj 2 Mg/Ml Inj 2 Ml) 4 mg IVP X1 ONE; Protocol Stop: 04/29/25 23:16 Last Admin: 04/29/25 23:47 Dose: 4 mg Assessment & Plan Plan This patient is a 40-year-old male with past medical history of schizoaffective disorder and hypertension was brought in to the ED from [facility]/prison on 04/29/2025 with chief complaint of altered mental status/postictal confusion after an episode of seizure at the prison. Patient is admitted to ICU for management of symptomatic hypoosmolar euvolemic hyponatremia with seizures due to medication [lithium] and possible psychogenic polydipsia. Neurology #Acute encephalopathy #Seizure with ground level fall #Symptomatic euvolemic hyponatremia DDx: [place] medication causing nephrogenic DI, psychogenic polydipsia, thiazide diuretics -Patient presented with witnessed seizure in the prison with postictal confusion. Patient is on lithium 300 mg twice daily, olanzapine 10 mg once daily and hydrochlorothiazide 25 mg once a day. -Patient possibly developed excessive thirst due to polyuria caused by lithium hence he drank more water causing hyponatremia -In the ED, patient's vital showed blood pressure 140/99 heart rate 105, respiratory rate 18 and afebrile. He was saturating well on room air. -Critical sodium 107, chloride 73 and potassium 2.8. -Patient was given loading dose of Keppra 2 g x 1, IV Zofran, and Ativan 2 mg IV x 1, hypertonic saline 3% at 30 cc/h, IV 60 mEq KCl IV was started. As soon as Aceves catheter was placed patient started putting out less urine around 3.5 L therefore 3% hypertonic saline was stopped as repeat sodium showed spontaneous correction from 107->109->111 in 4 hours. Desmopressin was administered to IV 2 mcg x 1. However patient was still dumping urine around 1.8 L post first desmopressin therefore another desmopressin 2 mcg was administered and D5W at 150 cc/h were started to avoid rapid correction of sodium as recent sodium is 114. Dx -Head CT was negative. -Cervical spine CT showed no acute fracture. -U tox was negative. Rx -Continue with D5W at 150 cc/h to prevent rapid correction of sodium - Goal of sodium correction 4 to 6 mEq in first 24 hours to avoid osmotic demyelination syndrome - Desmopressin given 4 mcg x 1 - Seizure precautions - Aspiration precautions - Versed for breakthrough seizure as needed Rxx -Neurochecks Q2 hourly -BMP Q1 hourly and then sodium checks Q1 hourly starting at 6:00 -Follow-up with lithium levels #History of schizoaffective disorder -Patient is on lithium 300 mg twice daily and olanzapine 10 mg once daily. Rx - Currently holding home meds due to critical hyponatremia - Versed for breakthrough seizures Cardiovascular #Mild hypotension - History of hypertension -Patient has been having polyuria attributing to soft blood pressure. Rx -Holding home thiazide diuretic due to hyponatremia -Holding lisinopril due to soft blood pressure #Remote history of methamphetamine use - Recent U tox was negative. Rx - No active intervention Respiratory No active issue GI and F/E/N #Mild hepatitis #History of hep C and hx of alcohol use -Patient has a history of reactive hep C antibody. - AST 94, ALT 198. T. bili 1.2. Rx - Follow-up with liver panel - Per chart review, hepatitis panel revealed hep C reactive antibody -Patient has remote history of drinking alcohol -No active intervention No active issue Renal #Symptomatic euvolemic hypoosmolar hyponatremia DDx: [place] medication causing nephrogenic DI with excess thirst, psychogenic polydipsia, thiazide diuretics -Patient presented with witnessed seizure in the prison with postictal confusion. Patient is on lithium 300 mg twice daily, olanzapine 10 mg once daily and hydrochlorothiazide 25 mg once a day. -Patient possibly developed excessive thirst due to polyuria caused by lithium hence he drank more water causing hyponatremia -In the ED, patient's vital showed blood pressure 140/99 heart rate 105, respiratory rate 18 and afebrile. He was saturating well on room air. -Critical sodium 107, chloride 73 and potassium 2.8. -Patient was given loading dose of Keppra 2 g x 1, IV Zofran, and Ativan 2 mg IV x 1, hypertonic saline 3% at 30 cc/h, IV 60 mEq KCl IV was started. As soon as Aceves catheter was placed patient started putting out less urine around 3.5 L therefore 3% hypertonic saline was stopped as repeat sodium showed spontaneous correction from 107->109->111 in 4 hours. Desmopressin was administered to IV 2 mcg x 1. However patient was still dumping urine around 1.8 L post first desmopressin therefore another desmopressin 2 mcg was administered and D5W at 150 cc/h were started to avoid rapid correction of sodium as recent sodium is 114. Dx -Head CT was negative. -Cervical spine CT showed no acute fracture. -U tox was negative. - 3 AM UO : 3.4 L -4 AM UO:2.4 L, In total : 5.8 L approx Rx -Continue with D5W at 150 cc/h to prevent rapid correction of sodium - Goal of sodium correction 4 to 6 mEq in first 24 hours to avoid osmotic demyelination syndrome - Desmopressin given 4 mcg x 1 - IV 60 mEq KCl given x 1 - Seizure precautions - Aspiration precautions - Versed for breakthrough seizure as needed - Consider nephrology consult Rxx -Neurochecks Q2 hourly -BMP Q1 hourly and then sodium checks Q1 hourly starting at 6:00 -Follow-up with lithium levels -Follow-up with urine electrolytes #Mild VERO,improving DDx: Rhabdomyolysis, lithium, thiazide - Patient presented with elevated BUN and creatinine initial was 1.2 down to 0.8 with baseline creatinine 0.9 from 08/18/2024. -Patient is on lithium 300 mg twice daily, HTCz 25 mg once daily and lisinopril 10 mg once daily Rx - Avoid nephrotoxic agents - Renally dose medications - Strict intake and output Rxx - Follow-up with lithium levels #Rhabdomyolysis -In the setting of seizure -Total CK went up from 377 to 684 Rx - Currently on D5W #Lactic acidosis -Initial lactic acid was 2 downtrended to 1.5. Rx - Trending lactic acid Q3 hourly Heme #Normocytic anemia -Patient came with hemoglobin of 13.2. Rx - PRBC if hemoglobin drops below 7 Rxx - Daily labs Endo #Mild hyperglycemia -A1c 5.0 Rx -Blood sugar checks Q6 hourly as patient is n.p.o. ID No active issue ICU health maintenance: DVT prophylaxis: Heparin SQ Q6 hourly GI prophylaxis: Protonix IV daily Diet: NPO Aceves: PLACED Lines: Peripherals Drips: D5W at 150 cc/h Vent: None CODE STATUS: Full code Reason of hospitalization:Patient is admitted to ICU for management of symptomatic hypoosmolar euvolemic hyponatremia with seizures due to medication [lithium] and possible psychogenic polydipsia. Patient discussed with my attending, Dr. Deangelo nelson MD, PGY 3 Attending Provider Attestation/Addendum After examining patient and review of the clinical data patient was found to have high probability of imminent deterioration which required my direct management and intervention TOTAL CC TIME: 60 MIN TOTAL TIME: 60 Minutes of direct medical management and planning of care. I Chhaya Bright MD, attest that I was physically present for martínez portions of evaluation, and examined patient, labs and imagings and plan of care were discussed with IM residents team, and I agree with the findings and plans documented above.
[2025-04-30 03:26] LABS: Magnesium 1.4 mg/dL (1.6-2.6)
[2025-04-30 03:27] LABS: Sodium 111 mMol/L (136-145)
[2025-04-30] MEDS: DESMOPRESSIN ACETATE 4 MCG/ML VIAL 2 MCG IV ×2 (03:29→04:27)
[2025-04-30 03:38] LABS: Anion Gap 10 (7-16); BUN/Creatinine Ratio 7 Ratio (12-20); Blood Urea Nitrogen 5 mg/dL (9-23); Calcium 9.3 mg/dL (8.3-10.6); Carbon Dioxide 23.1 mMol/L (20.0-31.0); Chloride 81 mMol/L (98-107); Creatinine (Component) 0.7 mg/dL (0.6-1.3); Estimated Creatinine Clearance 137.1 mL/min (>60); Glucose 108 mg/dL (74-106); Osmolality,Calculated 229 (275-295); Potassium 3.1 mMol/L (3.4-5.1); eGFR > 60 See Note
[2025-04-30 03:39] LABS: Sodium 114 mMol/L (136-145)
[2025-04-30] MEDS: DEXTROSE 5%-WATER 1,000 ML 150 ML IV (04:20)
[2025-04-30 04:21] LABS: Reflex Lactate? Y
[2025-04-30 04:26] LABS: COVID-19 Antigen (In-House) Negative (Negative)
[2025-04-30 04:57] LABS: Basophils # (Auto) 0.0 Thou/mm3 (0.0-0.2); Basophils % (Auto) 0 % (0-2.5); Eosinophils # (Auto) 0.0 Thou/mm3 (0.0-0.5); Eosinophils % (Auto) 0 % (0-10); Hematocrit 33.9 % (41.0-53.0); Hemoglobin 13.2 g/dL (13.5-16.0); Immature Granulocytes Auto 0.06 Thou/mm3 (0.00-0.00); Lymphocytes # (Auto) 0.9 Thou/mm3 (1.0-4.8); Lymphocytes % (Auto) 10 % (10-50); Mean Corpuscular HGB Conc 38.9 g/dl (31.0-37.0); Mean Corpuscular Hemoglobin 31.7 pg (25.0-35.0); Mean Corpuscular Volume 82 fL (80-100); Monocytes # (Auto) 0.7 Thou/mm3 (0.0-0.8); Monocytes % (Auto) 8 % (0-12); Neutrophils # (Auto) 7.8 Thou/mm3 (1.8-7.7); Neutrophils % (Auto) 82 % (37-80); Nucleated Red Blood Cell # 0.00 Thou/mm3 (0.00-0.00); Nucleated Red Blood Cell % 0 /100 WBC (0); Platelet Count 169 Thou/mm3 (140-440); RDW Standard Deviation 37.4 fL (35.1-43.9); Red Blood Count 4.16 Miln/mm3 (4.50-5.90); White Blood Count 9.6 Thou/mm3 (3.8-10.6)
[2025-04-30] MEDS: Magnesium Sulfate 4 GM Ivpb 4 GM/50 ML BAG IV (05:00)
[2025-04-30 05:21] LABS: Lactic Acid, 3 HR 1.5 mMol/L (0.4-2.0)
[2025-04-30 05:26] LABS: Anion Gap 8 (7-16); BUN/Creatinine Ratio 6 Ratio (12-20); Blood Urea Nitrogen < 5 mg/dL (9-23); Calcium 9.0 mg/dL (8.3-10.6); Carbon Dioxide 23.7 mMol/L (20.0-31.0); Cardiac Risk Estimate 2.1 RATIO (4.0-6.7); Chloride 82 mMol/L (98-107); Cholesterol 121 mg/dL (132-200); Creatinine (Component) 0.8 mg/dL (0.6-1.3); Estimated Creatinine Clearance 119.9 mL/min (>60); Glucose 121 mg/dL (74-106); HDL Cholesterol 58 mg/dL (40-60); LDL Cholesterol,Calculated 52 mg/dL (0-130); Magnesium 1.8 mg/dL (1.6-2.6); Osmolality,Calculated 229 (275-295); Potassium 3.4 mMol/L (3.4-5.1); Triglycerides 55 mg/dL (30-150); eGFR > 60 See Note
[2025-04-30 05:27] LABS: Sodium 114 mMol/L (136-145)
[2025-04-30 06:24] LABS: Anion Gap 13 (7-16); BUN/Creatinine Ratio 6 Ratio (12-20); Blood Urea Nitrogen 5 mg/dL (9-23); Calcium 9.0 mg/dL (8.3-10.6); Carbon Dioxide 18.2 mMol/L (20.0-31.0); Chloride 83 mMol/L (98-107); Creatinine (Component) 0.8 mg/dL (0.6-1.3); Estimated Creatinine Clearance 119.9 mL/min (>60); Glucose 148 mg/dL (74-106); Osmolality,Calculated 231 (275-295); Potassium 3.3 mMol/L (3.4-5.1); eGFR > 60 See Note
[2025-04-30 06:40] LABS: Sodium 114 mMol/L (136-145)
[2025-04-30 07:15] LABS: Anion Gap 9 (7-16); BUN/Creatinine Ratio 6 Ratio (12-20); Blood Urea Nitrogen 5 mg/dL (9-23); Calcium 9.1 mg/dL (8.3-10.6); Carbon Dioxide 24.4 mMol/L (20.0-31.0); Chloride 81 mMol/L (98-107); Creatinine (Component) 0.8 mg/dL (0.6-1.3); Estimated Creatinine Clearance 119.9 mL/min (>60); Glucose 180 mg/dL (74-106); Osmolality,Calculated 233 (275-295); Potassium 4.3 mMol/L (3.4-5.1); eGFR > 60 See Note
--- NOTE | 2025-04-30 07:35 | ESPR_ITS ---
Documentation for date of: 04/30/25 Subjective Subjective Interval history: This is a 40-year-old male who is brought in from care home for seizure and hyponatremia. The patient has a history of schizoaffective disorder and is on lithium at the care home. Overnight the patient was agitated at some point in time and given Ativan. This morning the patient is sedated. He is net -1.6 L. His sodium has been correcting rather rapidly and he is on D5W. Unclear if he is still altered this morning due to the hyponatremia versus postictal. Critical Care Note Critical care time (min.): 40 Exam Vital Signs Temp Pulse Resp BP Pulse Ox O2 Del Method 97.0 F 64 12 117/70 100 Room Air 04/30/25 06:31 04/30/25 07:15 04/30/25 07:15 04/30/25 07:15 04/30/25 07:15 04/30/25 06:31 Narrative Exam General-no acute distress, sedated, normal body habitus HEENT-normocephalic, atraumatic, sclera icteric, oral mucosa is dry, adequate dentition, pupils are equal and reactive Chest-lungs clear to auscultation bilaterally, heart regular, no bruits murmurs auscultated on exam, no increased work of breathing Abdomen-soft, nontender, bowel sounds present, no rebound or guarding, well- healed surgical scars present Extremities-no edema of lower extremities, pulses palpable, no clubbing or mottling, there are significant skin indentations and beginning of tissue injury noted where metal restraints are in place over the patient's wrist and ankles Drips D5W Physical Exam Completion Physical Exam Complete?: Yes Objective - [employer] Labs 05/01/25 03:45 05/01/25 07:14 Labs: Laboratory Results - last 24 hr 04/29/25 04/29/25 04/29/25 23:20 23:23 23:26 WBC 9.0 RBC 4.10 L Hgb 12.9 L Hct 34.1 L MCV 83 MCH 31.5 MCHC 37.8 H RDW Std Deviation 38.8 Plt Count 170 Neut % (Auto) 46 Lymph % (Auto) 42 Crisp % (Auto) 9 Eos % (Auto) 2 Baso % (Auto) 0 Neut # (Auto) 4.1 Lymph # (Auto) 3.8 Crisp # (Auto) 0.8 Eos # (Auto) 0.2 Baso # (Auto) 0.0 Immature Gran # (Auto) 0.03 H Absolute Nucleated RBC 0.00 Immature Gran % 0 Nucleated RBC % 0 ESR 1 Puncture Site ABG pH ABG pCO2 ABG pO2 ABG HCO3 ABG O2 Saturation ABG Base Excess VBG pH 7.35 VBG pCO2 28 L VBG pO2 113 H VBG O2 Sat (Karie) 99 H VBG Base Excess -9 L FiO2 Sodium 107 L* Potassium 2.8 L Chloride 73 L* Carbon Dioxide 15.1 L Anion Gap 19 H BUN 7 L Creatinine 1.0 Estim Creat Clear Calc 96.0 eGFR > 60 BUN/Creatinine Ratio 7 L Glucose [address] Glu mg/dL 97 Hemoglobin A1c 5.0 Calculated Osmolality 219 L Lactic Acid Calcium 9.1 Corrected Calcium 9.1 Magnesium 1.6 Total Bilirubin 1.4 H Direct Bilirubin 0.6 H AST 99 H ALT 217 H Alkaline Phosphatase 67 Total Creatine Kinase 377 H C-Reactive Prot, Quant < 0.5 Total Protein 7.7 Albumin 5.1 H Globulin 2.6 Albumin/Globulin Ratio 2.0 Triglycerides Cholesterol LDL Cholesterol, Calc HDL Cholesterol Cholesterol/HDL Ratio Procalcitonin 0.06 TSH 3.88 Ur Collection Type Clean Catch Urine Color Colorless A Urine Clarity Clear Urine pH 7.0 Ur Specific [place] 1.001 Urine Protein Negative Urine Glucose (UA) Negative Urine Ketones Negative Urine Blood Negative Urine Nitrite Negative Urine Bilirubin Negative Urine Urobilinogen (Auto) Negative Ur Leukocyte Esterase Negative Urine RBC < 1 Urine WBC < 1 Ur Squamous Epith Cells 0 Urine Bacteria None Ur Culture Indicated? Not Indicated Urine Opiates Screen Negative Urine Fentanyl Screen Negative Ur Barbiturates Screen Negative U Amphetamin/Meth Scrn Negative U Benzodiazepines Scrn Negative U Cocaine Metab Screen Negative U Marijuana (THC) Screen Negative Ethyl Alcohol < 3.0 SARS-CoV-2 Ag (Rapid) 04/30/25 04/30/25 04/30/25 01:03 01:20 02:05 WBC RBC Hgb Hct MCV MCH MCHC RDW Std Deviation Plt Count Neut % (Auto) Lymph % (Auto) Crisp % (Auto) Eos % (Auto) Baso % (Auto) Neut # (Auto) Lymph # (Auto) Crisp # (Auto) Eos # (Auto) Baso # (Auto) Immature Gran # (Auto) Absolute Nucleated RBC Immature Gran % Nucleated RBC % ESR Puncture Site Right Radial ABG pH 7.45 ABG pCO2 34 ABG pO2 90 ABG HCO3 24 ABG O2 Saturation 98 ABG Base Excess 0 VBG pH VBG pCO2 VBG pO2 VBG O2 Sat (Karie) VBG Base Excess FiO2 21 Sodium 109 L* 111 L* Potassium 2.8 L 3.2 L Chloride 77 L* 80 L Carbon Dioxide 21.3 18.7 L Anion Gap 11 12 BUN 7 L < 5 L Creatinine 0.8 0.7 Estim Creat Clear Calc 119.9 137.1 eGFR > 60 > 60 BUN/Creatinine Ratio 9 L 7 L Glucose [address] Glu mg/dL Hemoglobin A1c Calculated Osmolality 220 L 222 L Lactic Acid 2.6 H Calcium 9.0 9.1 Corrected Calcium 9.0 Magnesium 1.4 L Total Bilirubin 1.2 Direct Bilirubin AST 94 H ALT 198 H Alkaline Phosphatase 58 Total Creatine Kinase 684 H D C-Reactive Prot, Quant Total Protein 7.1 Albumin 4.6 D Globulin 2.5 Albumin/Globulin Ratio 1.8 Triglycerides Cholesterol LDL Cholesterol, Calc HDL Cholesterol Cholesterol/HDL Ratio Procalcitonin TSH Ur Collection Type Urine Color Urine Clarity Urine pH Ur Specific [place] Urine Protein Urine Glucose (UA) Urine Ketones Urine Blood Urine Nitrite Urine Bilirubin Urine Urobilinogen (Auto) Ur Leukocyte Esterase Urine RBC Urine WBC Ur Squamous Epith Cells Urine Bacteria Ur Culture Indicated? Urine Opiates Screen Urine Fentanyl Screen Ur Barbiturates Screen U Amphetamin/Meth Scrn U Benzodiazepines Scrn U Cocaine Metab Screen U Marijuana (THC) Screen Ethyl Alcohol SARS-CoV-2 Ag (Rapid) 04/30/25 04/30/25 04/30/25 03:05 03:08 04:19 WBC 9.6 RBC 4.16 L Hgb 13.2 L Hct 33.9 L MCV 82 MCH 31.7 MCHC 38.9 H RDW Std Deviation 37.4 Plt Count 169 Neut % (Auto) 82 H Lymph % (Auto) 10 Crisp % (Auto) 8 Eos % (Auto) 0 Baso % (Auto) 0 Neut # (Auto) 7.8 H Lymph # (Auto) 0.9 L Crisp # (Auto) 0.7 Eos # (Auto) 0.0 Baso # (Auto) 0.0 Immature Gran # (Auto) 0.06 H Absolute Nucleated RBC 0.00 Immature Gran % 1 H Nucleated RBC % 0 ESR Puncture Site ABG pH ABG pCO2 ABG pO2 ABG HCO3 ABG O2 Saturation ABG Base Excess VBG pH VBG pCO2 VBG pO2 VBG O2 Sat (Karie) VBG Base Excess FiO2 Sodium 114 L* 114 L* Potassium 3.1 L 3.4 Chloride 81 L 82 L Carbon Dioxide 23.1 23.7 Anion Gap 10 8 BUN 5 L < 5 L Creatinine 0.7 0.8 Estim Creat Clear Calc 137.1 119.9 eGFR > 60 > 60 BUN/Creatinine Ratio 7 L 6 L Glucose [address] Glu mg/dL Hemoglobin A1c Calculated Osmolality 229 L 229 L Lactic Acid Calcium 9.3 9.0 Corrected Calcium Magnesium 1.8 Total Bilirubin Direct Bilirubin AST ALT Alkaline Phosphatase Total Creatine Kinase C-Reactive Prot, Quant Total Protein Albumin Globulin Albumin/Globulin Ratio Triglycerides 55 Cholesterol 121 L LDL Cholesterol, Calc 52 HDL Cholesterol 58 Cholesterol/HDL Ratio 2.1 L Procalcitonin TSH Ur Collection Type Urine Color Urine Clarity Urine pH Ur Specific [place] Urine Protein Urine Glucose (UA) Urine Ketones Urine Blood Urine Nitrite Urine Bilirubin Urine Urobilinogen (Auto) Ur Leukocyte Esterase Urine RBC Urine WBC Ur Squamous Epith Cells Urine Bacteria Ur Culture Indicated? Urine Opiates Screen Urine Fentanyl Screen Ur Barbiturates Screen U Amphetamin/Meth Scrn U Benzodiazepines Scrn U Cocaine Metab Screen U Marijuana (THC) Screen Ethyl Alcohol SARS-CoV-2 Ag (Rapid) Negative 04/30/25 05:14 WBC RBC Hgb Hct MCV MCH MCHC RDW Std Deviation Plt Count Neut % (Auto) Lymph % (Auto) Crisp % (Auto) Eos % (Auto) Baso % (Auto) Neut # (Auto) Lymph # (Auto) Crisp # (Auto) Eos # (Auto) Baso # (Auto) Immature Gran # (Auto) Absolute Nucleated RBC Immature Gran % Nucleated RBC % ESR Puncture Site ABG pH ABG pCO2 ABG pO2 ABG HCO3 ABG O2 Saturation ABG Base Excess VBG pH VBG pCO2 VBG pO2 VBG O2 Sat (Karie) VBG Base Excess FiO2 Sodium 114 L* Potassium 3.3 L Chloride 83 L Carbon Dioxide 18.2 L Anion Gap 13 BUN 5 L Creatinine 0.8 Estim Creat Clear Calc 119.9 eGFR > 60 BUN/Creatinine Ratio 6 L Glucose [address] Glu mg/dL Hemoglobin A1c Calculated Osmolality 231 L Lactic Acid 1.5 Calcium 9.0 Corrected Calcium Magnesium Total Bilirubin Direct Bilirubin AST ALT Alkaline Phosphatase Total Creatine Kinase C-Reactive Prot, Quant Total Protein Albumin Globulin Albumin/Globulin Ratio Triglycerides Cholesterol LDL Cholesterol, Calc HDL Cholesterol Cholesterol/HDL Ratio Procalcitonin TSH Ur Collection Type Urine Color Urine Clarity Urine pH Ur Specific [place] Urine Protein Urine Glucose (UA) Urine Ketones Urine Blood Urine Nitrite Urine Bilirubin Urine Urobilinogen (Auto) Ur Leukocyte Esterase Urine RBC Urine WBC Ur Squamous Epith Cells Urine Bacteria Ur Culture Indicated? 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 He still has not returned to baseline. Will obtain an EEG. Schizoaffective disorder-hold lithium and follow-up on levels Seizure-no known history of seizure disorder. This may be secondary to the patient's hyponatremia. Follow-up with EEG and head CT. Will obtain a neuro eval. CV Hypertension-patient is unable to take p.o. meds at this time. His current blood pressure is within parameters. Will hold for now. Resp Stable Renal Hyponatremia-patient presented with a sodium of 107. He has dumped a significant amount of urine with a sodium currently of 114. D5W was started and his last draw returned at 113. Corrected no faster than 6 mill equivalents in the first 24 hours therefore target sodium would be 113 -Will obtain urine studies -Patient is on hydrochlorothiazide as an outpatient, this will be stopped Hypokalemia-this has been repleted GI Transaminitis-patient has had elevated LFTs since 2018. Follow-up on abdomen/pelvis CT taken earlier today. Patient's hepatitis panel from 2019 showed positive for hep C. Repeat an acute viral panel and if this continues to be positive does need to follow-up with GI for hepatitis C. Will evaluate his medications to see if his elevated LFTs may also be related to drug-induced liver injury. Endo Hyperglycemia-likely due to the patient's D5W Heme DVT prophylaxis-Lovenox ID Stable Case discussed with ICU team Labs imaging and records reviewed Approximately 40 critical care minutes required for evaluation, exam, review, dimension, discussion formulation of plan of care for this critically ill patient with severe hyponatremia and seizures who is at high risk for further and ongoing decompensation. Provider Notation Provider Notation: Although this document has been carefully reviewed, there may still be some phonetic and other typographical errors. These errors are purely grammatical due to imperfections in the software program and should not be construed in any way to compromise the substance of the patient's medical care during this visit. Thank you for the opportunity and privilege in assisting you with this patient's care and management.
[2025-04-30] MEDS: HEPARIN SOD INJ 5000 UNIT/ML VIAL SC ×3 (07:47→21:30)
[2025-04-30 07:58] LABS: Lithium 0.24 mEq/L (1.00-1.20)
[2025-04-30 07:59] LABS: Sodium 114 mMol/L (136-145)
[2025-04-30 08:03] LABS: Sodium 113 mMol/L (136-145)
[2025-04-30] MEDS: DEXTROSE 5%-WATER 1,000 ML 230 ML IV ×2 (09:22→13:56)
[2025-04-30 09:44] LABS: Sodium 113 mMol/L (136-145)
--- NOTE | 2025-04-30 09:46 | PC.SS ---
Addendum entered by Fanta Lockett 04/30/25 13:55: Megan Hinds [phone] contacted SS and stated she is patient's NOK effective today, 04/30/25. Registration Sandhya contacted and NOK contact updated to reflect Sibling Megan Hinds [phone] [address] [place] [address]. Alternate contact for Megan # [phone]. Addendum entered by Fanta Lockett 04/30/25 13:40: [phone] contacted, a message was left requesting a return call. Received call from patient's aunt Swati who angrily expressed not to be contacted and stated patient's mother Jnen Dangelo 5yrs. ago. Swati's concerns were validated and greeting card writer apologized for any cause of distress. Swati stated she would inform patient's sister Megan and she would contact SS if she wished to reconnect with patient. SS explained importance of NOK contact due to patient having no one listed on his medical record. Call was disconnected by Swati. Original Note: Jenn Dangelo [phone] contact was found in previous historical chart. Attempted to contact, unrelated male to Jenn Dangelo stated this was no longer her contact number. SS to attempt to reconnect with patient when he's coherent. Attempted to meet with patient at bedside to complete initial assessment. Patient unable to provide responses. At bedside, Officer Brayan stated patient was to be released from their custody shortly and Sgt. Singh en route to sign off on release of custody. Officer Brayan contacted [facility] to obtain NOK information; he was unsuccessful. Instructor Painting stated patient does not have NOK. Officer Brayan provided historical home address [address] [address].
[2025-04-30 10:14] LABS: Sodium 114 mMol/L (136-145)
--- NOTE | 2025-04-30 10:52 | ESPR_ITS ---
<Statement entered by Roger See MD - 04/30/25 17:09> Patient is seen and examined at bedside. Admitted overnight in view of seizures secondary to suspected hyponatremia with sodium of 107. Patient was given only 10 mL of hypertonic saline and later it was discontinued. Later as the sodium continued to climb up for, to prevent rapid overcorrection patient was started on D5W at 230 mL/h. On physical examination, patient still noted to be altered but no further episodes of seizures. Continue to trend sodium and as the sodium dropped down to 112, decreased the rate of D5W to 50 mL/h. Will continue sodium checks and manage accordingly. 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 urine electrolytes were not collected during the night. [place] levels were checked and the levels are less than normal. I have personally seen and examined the patient, agree with residents assessment and plan Patient plan of care was discussed with the attending physician, Dr. Ede See, PGY2 Documentation for date of: 04/30/25 Subjective Subjective Interval history: History of present illness: This patient is a 40-year-old male with past medical history of schizoaffective disorder and hypertension was brought in to the ED from [facility]/intermediate on 04/29/2025 with chief complaint of altered mental status/postictal confusion after an episode of seizure at the intermediate. Nurse was contacted from intermediate after calling at [phone] to get further history. She stated that patient had a seizure episode lasting for 3 minutes spontaneously seizing on its own. Patient did hit his head on the floor. He did not had a bladder or bowel incontinence however he remained in postictal confusion and was not responding. There was foaming seen around his mouth and he was having trouble breathing. Blood sugars at that time were 121 mg/dL and oxygen was placed. At baseline patient is alert and oriented x 3. He had no episode of seizures before. EMS arrived at the scene and found him confused and anxious and brought him to the ED. In the ED, patient's vital showed blood pressure 140/99 heart rate 105, respiratory rate 18 and afebrile. He was saturating well on room air. Labs showed hemoglobin 12.9, platelet 170. ABG showed pH 7.45, pCO2 34, pO2 90. Chemistry panel showed critical hyponatremia with sodium 107, hypokalemia potassium 2.8, hypochloremia chloride 73 with bicarb 15.1. Anion gap 19. BUN 7 and creatinine 1.0 baseline creatinine 0.9 from 08/18/2024. Blood glucose 155. A1c 5.0. Lactic acid 2.6. Magnesium 1.4. T. bili 1.4 down trended to 1.2. AST and ALT mildly elevated. AST 99 and ALT 217. Total creatinine kinase 377 down trended to 684. Troponin I was negative. Procalcitonin was negative. TSH within normal limits. Urinalysis was colorless with specific gravity 1.001. pH 7.0. U tox was negative. Chart review showed patient has hep C reactive antibody. COVID was negative. Head CT showed no acute changes. Cervical spine CT showed no evidence of fracture. CT chest showed left lower lobe consolidation, contusion versus pneumonia. Patient was given loading dose of Keppra 2 g x 1, IV Zofran, and Ativan 2 mg IV x 1, hypertonic saline 3% at 30 cc/h, IV 60 mEq KCl IV was started. As soon as Aceves catheter was placed patient started putting out less urine around 3.5 L therefore 3% hypertonic saline was stopped as repeat sodium showed spontaneous correction from 107->109->111 in 4 hours. Desmopressin was administered to IV 2 mcg x 1. However patient was still dumping urine around 1.8 L post first desmopressin therefore another desmopressin 2 mcg was administered and D5W at 150 cc/h were started to avoid rapid correction of sodium as recent sodium is 114. PMH: As above PSH: Nonsignificant Allergies: Penicillin and prochlorperazine causes shock SH: Remote history of drinking alcohol and history of meth use Home medications: Buspirone 10 mg once daily, Cardizem 180 mg once daily, hydrochlorothiazide 25 mg once daily, lisinopril 10 mg once daily, lithium 300 mg twice daily, olanzapine 10 mg once a day (compliant for several months in intermediate) Patient is admitted to ICU for management of symptomatic hypoosmolar euvolemic hyponatremia with seizures due to medication [lithium] and possible psychogenic polydipsia. 04/30/2025: Patient was admitted overnight. No acute events overnight. Patient was not cooperative with examination, but was noted to have movement in all 4 extremities and resisted against this movement of the patient's bilateral upper extremities. The patient was continued on D5W as the patient's sodium remained in goal of around 113. Security that was with the patient left early in the morning and noted that the patient no longer needs an officer from the intermediate to watch the patient. Later that day, the patient became more agitated and attempted to get out of the bed during lab draw for the patient's sodium check. At that time, nursing staff noted that the patient stated shut up and I can't even get up . Patient was initially given lorazepam, but this was ineffective, so Haldol was administered, resulting in the patient calming down. Repeat sodium drawn at that time showed a sodium of 111, so D5W was discontinued. Will repeat sodium at 1900 to reassess for need for D5W. Exam Vital Signs Temp Pulse Resp BP Pulse Ox O2 Del Method 98.6 F 61 16 124/68 100 Room Air 04/30/25 08:00 04/30/25 09:30 04/30/25 09:30 04/30/25 09:30 04/30/25 09:30 04/30/25 06:31 Narrative Exam Physical Exam: General: Alert, no acute distress. Opens eyes spontaneously but does not follow commands. Skin: Warm, dry, intact. Head: Normocephalic, atraumatic. Eye: Normal conjunctiva, PERRL. Throat: Oral mucosa dry. No obvious lesions in oropharynx. Cardiovascular: Regular rate and rhythm, no murmur, +S1/S2. Respiratory: Lungs are clear to auscultation, respirations unlabored, no crackles, no wheezing. Gastrointestinal: Soft, nontender, non-distended. No guarding or rebound tenderness. Extremities: No edema, no cyanosis, no clubbing. 2+ radial pulse bilaterally, 2+ pedal pulse bilaterally. Neuro: No focal deficits observed. Moving all extremities. No overt cerebellar signs/incoordination. Psychiatric: Noncooperative. Objective Labs 04/30/25 04:19 04/30/25 16:20 Labs: Laboratory Results - last 24 hr 04/29/25 04/29/25 04/29/25 23:20 23:23 23:26 WBC 9.0 RBC 4.10 L Hgb 12.9 L Hct 34.1 L MCV 83 MCH 31.5 MCHC 37.8 H RDW Std Deviation 38.8 Plt Count 170 Neut % (Auto) 46 Lymph % (Auto) 42 Angelina % (Auto) 9 Eos % (Auto) 2 Baso % (Auto) 0 Neut # (Auto) 4.1 Lymph # (Auto) 3.8 Angelina # (Auto) 0.8 Eos # (Auto) 0.2 Baso # (Auto) 0.0 Immature Gran # (Auto) 0.03 H Absolute Nucleated RBC 0.00 Immature Gran % 0 Nucleated RBC % 0 ESR 1 Puncture Site ABG pH ABG pCO2 ABG pO2 ABG HCO3 ABG O2 Saturation ABG Base Excess VBG pH 7.35 VBG pCO2 28 L VBG pO2 113 H VBG O2 Sat (Karie) 99 H VBG Base Excess -9 L FiO2 Sodium 107 L* Potassium 2.8 L Chloride 73 L* Carbon Dioxide 15.1 L Anion Gap 19 H BUN 7 L Creatinine 1.0 Estim Creat Clear Calc 96.0 eGFR > 60 BUN/Creatinine Ratio 7 L Glucose [address] Glu mg/dL 97 Hemoglobin A1c 5.0 Calculated Osmolality 219 L Lactic Acid Calcium 9.1 Corrected Calcium 9.1 Magnesium 1.6 Total Bilirubin 1.4 H Direct Bilirubin 0.6 H AST 99 H ALT 217 H Alkaline Phosphatase 67 Total Creatine Kinase 377 H C-Reactive Prot, Quant < 0.5 Total Protein 7.7 Albumin 5.1 H Globulin 2.6 Albumin/Globulin Ratio 2.0 Triglycerides Cholesterol LDL Cholesterol, Calc HDL Cholesterol Cholesterol/HDL Ratio Procalcitonin 0.06 TSH 3.88 Ur Collection Type Clean Catch Urine Color Colorless A Urine Clarity Clear Urine pH 7.0 Ur Specific [place] 1.001 Urine Protein Negative Urine Glucose (UA) Negative Urine Ketones Negative Urine Blood Negative Urine Nitrite Negative Urine Bilirubin Negative Urine Urobilinogen (Auto) Negative Ur Leukocyte Esterase Negative Urine RBC < 1 Urine WBC < 1 Ur Squamous Epith Cells 0 Urine Bacteria None Ur Culture Indicated? Not Indicated Urine Opiates Screen Negative Urine Fentanyl Screen Negative Ur Barbiturates Screen Negative U Amphetamin/Meth Scrn Negative U Benzodiazepines Scrn Negative [place] U Cocaine Metab Screen Negative U Marijuana (THC) Screen Negative Ethyl Alcohol < 3.0 SARS-CoV-2 Ag (Rapid) 04/30/25 04/30/25 04/30/25 01:03 01:20 02:05 WBC RBC Hgb Hct MCV MCH MCHC RDW Std Deviation Plt Count Neut % (Auto) Lymph % (Auto) Angelina % (Auto) Eos % (Auto) Baso % (Auto) Neut # (Auto) Lymph # (Auto) Angelina # (Auto) Eos # (Auto) Baso # (Auto) Immature Gran # (Auto) Absolute Nucleated RBC Immature Gran % Nucleated RBC % ESR Puncture Site Right Radial ABG pH 7.45 ABG pCO2 34 ABG pO2 90 ABG HCO3 24 ABG O2 Saturation 98 ABG Base Excess 0 VBG pH VBG pCO2 VBG pO2 VBG O2 Sat (Karie) VBG Base Excess FiO2 21 Sodium 109 L* 111 L* Potassium 2.8 L 3.2 L Chloride 77 L* 80 L Carbon Dioxide 21.3 18.7 L Anion Gap 11 12 BUN 7 L < 5 L Creatinine 0.8 0.7 Estim Creat Clear Calc 119.9 137.1 eGFR > 60 > 60 BUN/Creatinine Ratio 9 L 7 L Glucose [address] Glu mg/dL Hemoglobin A1c Calculated Osmolality 220 L 222 L Lactic Acid 2.6 H Calcium 9.0 9.1 Corrected Calcium 9.0 Magnesium 1.4 L Total Bilirubin 1.2 Direct Bilirubin AST 94 H ALT 198 H Alkaline Phosphatase 58 Total Creatine Kinase 684 H D C-Reactive Prot, Quant Total Protein 7.1 Albumin 4.6 D Globulin 2.5 Albumin/Globulin Ratio 1.8 Triglycerides Cholesterol LDL Cholesterol, Calc HDL Cholesterol Cholesterol/HDL Ratio Procalcitonin TSH Ur Collection Type Urine Color Urine Clarity Urine pH Ur Specific [place] Urine Protein Urine Glucose (UA) Urine Ketones Urine Blood Urine Nitrite Urine Bilirubin Urine Urobilinogen (Auto) Ur Leukocyte Esterase Urine RBC Urine WBC Ur Squamous Epith Cells Urine Bacteria Ur Culture Indicated? Urine Opiates Screen Urine Fentanyl Screen Ur Barbiturates Screen U Amphetamin/Meth Scrn U Benzodiazepines Scrn [place] U Cocaine Metab Screen U Marijuana (THC) Screen Ethyl Alcohol SARS-CoV-2 Ag (Rapid) 04/30/25 04/30/25 04/30/25 03:05 03:08 04:19 WBC 9.6 RBC 4.16 L Hgb 13.2 L Hct 33.9 L MCV 82 MCH 31.7 MCHC 38.9 H RDW Std Deviation 37.4 Plt Count 169 Neut % (Auto) 82 H Lymph % (Auto) 10 Angelina % (Auto) 8 Eos % (Auto) 0 Baso % (Auto) 0 Neut # (Auto) 7.8 H Lymph # (Auto) 0.9 L Angelina # (Auto) 0.7 Eos # (Auto) 0.0 Baso # (Auto) 0.0 Immature Gran # (Auto) 0.06 H Absolute Nucleated RBC 0.00 Immature Gran % 1 H Nucleated RBC % 0 ESR Puncture Site ABG pH ABG pCO2 ABG pO2 ABG HCO3 ABG O2 Saturation ABG Base Excess VBG pH VBG pCO2 VBG pO2 VBG O2 Sat (Karie) VBG Base Excess FiO2 Sodium 114 L* 114 L* Potassium 3.1 L 3.4 Chloride 81 L 82 L Carbon Dioxide 23.1 23.7 Anion Gap 10 8 BUN 5 L < 5 L Creatinine 0.7 0.8 Estim Creat Clear Calc 137.1 119.9 eGFR > 60 > 60 BUN/Creatinine Ratio 7 L 6 L Glucose [address] Glu mg/dL Hemoglobin A1c Calculated Osmolality 229 L 229 L Lactic Acid Calcium 9.3 9.0 Corrected Calcium Magnesium 1.8 Total Bilirubin Direct Bilirubin AST ALT Alkaline Phosphatase Total Creatine Kinase C-Reactive Prot, Quant Total Protein Albumin Globulin Albumin/Globulin Ratio Triglycerides 55 Cholesterol 121 L LDL Cholesterol, Calc 52 HDL Cholesterol 58 Cholesterol/HDL Ratio 2.1 L Procalcitonin TSH Ur Collection Type Urine Color Urine Clarity Urine pH Ur Specific [place] Urine Protein Urine Glucose (UA) Urine Ketones Urine Blood Urine Nitrite Urine Bilirubin Urine Urobilinogen (Auto) Ur Leukocyte Esterase Urine RBC Urine WBC Ur Squamous Epith Cells Urine Bacteria Ur Culture Indicated? Urine Opiates Screen Urine Fentanyl Screen Ur Barbiturates Screen U Amphetamin/Meth Scrn U Benzodiazepines Scrn [place] U Cocaine Metab Screen U Marijuana (THC) Screen Ethyl Alcohol SARS-CoV-2 Ag (Rapid) Negative 04/30/25 04/30/25 04/30/25 05:14 06:29 07:34 WBC RBC Hgb Hct MCV MCH MCHC RDW Std Deviation Plt Count Neut % (Auto) Lymph % (Auto) Angelina % (Auto) Eos % (Auto) Baso % (Auto) Neut # (Auto) Lymph # (Auto) Angelina # (Auto) Eos # (Auto) Baso # (Auto) Immature Gran # (Auto) Absolute Nucleated RBC Immature Gran % Nucleated RBC % ESR Puncture Site ABG pH ABG pCO2 ABG pO2 ABG HCO3 ABG O2 Saturation ABG Base Excess VBG pH VBG pCO2 VBG pO2 VBG O2 Sat (Karie) VBG Base Excess FiO2 Sodium 114 L* 114 L* 113 L* Potassium 3.3 L 4.3 D Chloride 83 L 81 L Carbon Dioxide 18.2 L 24.4 Anion Gap 13 9 BUN 5 L 5 L Creatinine 0.8 0.8 Estim Creat Clear Calc 119.9 119.9 eGFR > 60 > 60 BUN/Creatinine Ratio 6 L 6 L Glucose [address] Glu mg/dL Hemoglobin A1c Calculated Osmolality 231 L 233 L Lactic Acid 1.5 Calcium 9.0 9.1 Corrected Calcium Magnesium Total Bilirubin Direct Bilirubin AST ALT Alkaline Phosphatase Total Creatine Kinase C-Reactive Prot, Quant Total Protein Albumin Globulin Albumin/Globulin Ratio Triglycerides Cholesterol LDL Cholesterol, Calc HDL Cholesterol Cholesterol/HDL Ratio Procalcitonin TSH Ur Collection Type Urine Color Urine Clarity Urine pH Ur Specific [place] Urine Protein Urine Glucose (UA) Urine Ketones Urine Blood Urine Nitrite Urine Bilirubin Urine Urobilinogen (Auto) Ur Leukocyte Esterase Urine RBC Urine WBC Ur Squamous Epith Cells Urine Bacteria Ur Culture Indicated? Urine Opiates Screen Urine Fentanyl Screen Ur Barbiturates Screen U Amphetamin/Meth Scrn U Benzodiazepines Scrn [place] 0.24 L U Cocaine Metab Screen U Marijuana (THC) Screen Ethyl Alcohol SARS-CoV-2 Ag (Rapid) 04/30/25 04/30/25 08:45 09:48 WBC RBC Hgb Hct MCV MCH MCHC RDW Std Deviation Plt Count Neut % (Auto) Lymph % (Auto) Angelina % (Auto) Eos % (Auto) Baso % (Auto) Neut # (Auto) Lymph # (Auto) Angelina # (Auto) Eos # (Auto) Baso # (Auto) Immature Gran # (Auto) Absolute Nucleated RBC Immature Gran % Nucleated RBC % ESR Puncture Site ABG pH ABG pCO2 ABG pO2 ABG HCO3 ABG O2 Saturation ABG Base Excess VBG pH VBG pCO2 VBG pO2 VBG O2 Sat (Karie) VBG Base Excess FiO2 Sodium 113 L* 114 L* Potassium Chloride Carbon Dioxide Anion Gap BUN Creatinine Estim Creat Clear Calc eGFR BUN/Creatinine Ratio Glucose Estimated Ave Glu mg/dL Hemoglobin A1c Calculated Osmolality Lactic Acid Calcium Corrected Calcium Magnesium Total Bilirubin Direct Bilirubin AST ALT Alkaline Phosphatase Total Creatine Kinase C-Reactive Prot, Quant Total Protein Albumin Globulin Albumin/Globulin Ratio Triglycerides Cholesterol LDL Cholesterol, Calc HDL Cholesterol Cholesterol/HDL Ratio Procalcitonin TSH Ur Collection Type Urine Color Urine Clarity Urine pH Ur Specific [place] Urine Protein Urine Glucose (UA) Urine Ketones Urine Blood Urine Nitrite Urine Bilirubin Urine Urobilinogen (Auto) Ur Leukocyte Esterase Urine RBC Urine WBC Ur Squamous Epith Cells Urine Bacteria Ur Culture Indicated? Urine Opiates Screen Urine Fentanyl Screen Ur Barbiturates Screen U Amphetamin/Meth Scrn U Benzodiazepines Scrn [place] U Cocaine Metab Screen U Marijuana (THC) Screen Ethyl Alcohol SARS-CoV-2 Ag (Rapid) ABG Interpretation ABG results: 04/29/25 04/30/25 23:20 01:20 ABG pH 7.45 ABG pCO2 34 ABG pO2 90 ABG HCO3 24 ABG O2 Saturation 98 ABG Base Excess 0 VBG pH 7.35 VBG pCO2 28 L VBG pO2 113 H VBG Base Excess -9 L Quality Measures Quality Measures VTE prophylaxis (Heparin SC ) Assessment & Plan Assessment Current Active Medications: Generic Name Dose Route Start Last Admin Trade Name Freq PRN Reason Stop Dose Admin Acetaminophen 650 mg 04/30/25 02:19 Acetaminophen 325 Mg Tablet PO 05/30/25 02:18 Q6H PRN Fever >101.5 Diazepam 20 mg 04/30/25 00:38 Diazepam Inj 5 Mg/Ml Vial 2 Ml IVP 05/05/25 00:37 Q5MIN PRN SEIZURES Heparin Sodium (Porcine) 5,000 unit 04/30/25 06:00 04/30/25 07:47 Heparin Sod Inj 5000 Unit/Ml Vial SC 05/14/25 05:59 5,000 unit Q8HR ARMANDO Administration Sodium Chloride 500 ml/ IV 500 mls @ 30 mls/hr 04/30/25 00:37 04/30/25 01:59 Miscellaneous Supplies IV 04/30/25 17:16 0 mls/hr On Hold: 04/30/25 01:58 X1 ONE Infusion Dextrose 1,000 mls @ 230 mls/hr 04/30/25 04:15 04/30/25 09:22 D5w IV 05/30/25 04:14 230 mls/hr .Q4H21M ARMANDO Administration Ondansetron HCl 4 mg 04/30/25 02:19 Ondansetron Inj 2 Mg/Ml Inj 2 Ml IVP 05/30/25 02:18 Q6H PRN NAUSEA OR VOMITING Protocol Pantoprazole Sodium 40 mg 04/30/25 09:00 04/30/25 08:29 Pantoprazole Inj 40 Mg Vial IVP 05/30/25 08:59 40 mg QDAY ARMANDO Administration Plan This patient is a 40-year-old male with past medical history of schizoaffective disorder and hypertension was brought in to the ED from [facility]/intermediate on 04/29/2025 with chief complaint of altered mental status/postictal confusion after an episode of seizure at the intermediate. Patient is admitted to ICU for management of symptomatic hypoosmolar euvolemic hyponatremia with seizures due to medication [lithium] and possible psychogenic polydipsia. Neurology #Acute encephalopathy #Seizure with ground level fall #Symptomatic euvolemic hyponatremia DDx: [place] medication causing nephrogenic DI, psychogenic polydipsia, thiazide diuretics -Patient presented with witnessed seizure in the intermediate with postictal confusion. Patient is on lithium 300 mg twice daily, olanzapine 10 mg once daily and hydrochlorothiazide 25 mg once a day. -Patient possibly developed excessive thirst due to polyuria caused by lithium hence he drank more water causing hyponatremia -In the ED, patient's vital showed blood pressure 140/99 heart rate 105, respiratory rate 18 and afebrile. He was saturating well on room air. -Critical sodium 107, chloride 73 and potassium 2.8. -Patient was given loading dose of Keppra 2 g x 1, IV Zofran, and Ativan 2 mg IV x 1, hypertonic saline 3% at 30 cc/h, IV 60 mEq KCl IV was started. As soon as Aceves catheter was placed patient started putting out less urine around 3.5 L therefore 3% hypertonic saline was stopped as repeat sodium showed spontaneous correction from 107->109->111 in 4 hours. Desmopressin was administered to IV 2 mcg x 1. However patient was still dumping urine around 1.8 L post first desmopressin therefore another desmopressin 2 mcg was administered and D5W at 150 cc/h were started to avoid rapid correction of sodium as recent sodium is 114. Dx -Head CT was negative. -Cervical spine CT showed no acute fracture. -U tox was negative. Rx -Continue with D5W at 150 cc/h to prevent rapid correction of sodium - Goal of sodium correction 4 to 6 mEq in first 24 hours to avoid osmotic demyelination syndrome - Desmopressin given 4 mcg x 1 - Seizure precautions - Aspiration precautions - Versed for breakthrough seizure as needed Rxx -Neurochecks Q2 hourly -BMP Q1 hourly and then sodium checks Q1 hourly starting at 6:00 -Follow-up with lithium levels #History of schizoaffective disorder -Patient is on lithium 300 mg twice daily and olanzapine 10 mg once daily. Rx - Currently holding home meds due to critical hyponatremia - Versed for breakthrough seizures Cardiovascular #Mild hypotension - History of hypertension -Patient has been having polyuria attributing to soft blood pressure. Rx -Holding home thiazide diuretic due to hyponatremia -Holding lisinopril due to soft blood pressure #Remote history of methamphetamine use - Recent U tox was negative. Rx - No active intervention Respiratory No active issue GI and F/E/N #Mild hepatitis #History of hep C and hx of alcohol use -Patient has a history of reactive hep C antibody. - AST 94, ALT 198. T. bili 1.2. Rx - Follow-up with liver panel - Per chart review, hepatitis panel revealed hep C reactive antibody -Patient has remote history of drinking alcohol -No active intervention No active issue Renal #Symptomatic hyponatremia DDx: [place] medication causing nephrogenic DI with excess thirst, psychogenic polydipsia, thiazide diuretics -Patient presented with witnessed seizure in the intermediate with postictal confusion. Patient is on lithium 300 mg twice daily, olanzapine 10 mg once daily and hydrochlorothiazide 25 mg once a day. -Patient possibly developed excessive thirst due to polyuria caused by lithium hence he drank more water causing hyponatremia -In the ED, patient's vital showed blood pressure 140/99 heart rate 105, respiratory rate 18 and afebrile. He was saturating well on room air. -Critical sodium 107, chloride 73 and potassium 2.8. -Patient was given loading dose of Keppra 2 g x 1, IV Zofran, and Ativan 2 mg IV x 1, hypertonic saline 3% at 30 cc/h, IV 60 mEq KCl IV was started. As soon as Aceves catheter was placed patient started putting out less urine around 3.5 L therefore 3% hypertonic saline was stopped as repeat sodium showed spontaneous correction from 107->109->111 in 4 hours. Desmopressin was administered to IV 2 mcg x 1. However patient was still dumping urine around 1.8 L post first desmopressin therefore another desmopressin 2 mcg was administered and D5W at 150 cc/h were started to avoid rapid correction of sodium as recent sodium is 114. Dx -Head CT was negative. -Cervical spine CT showed no acute fracture. -U tox was negative. - 3 AM UO : 3.4 L -4 AM UO:2.4 L, In total : 5.8 L approx -[place] levels 0.27 -04/30 16:20 sodium 111 Rx - D5W discontinued given sodium of 111 on 04/30 16:20, will repeat sodium lab at 19:00, consider resuming D5W if above goal - Goal of sodium correction 4 to 6 mEq in first 24 hours to avoid osmotic demyelination syndrome - Desmopressin given 4 mcg x 1 - IV 60 mEq KCl given x 1 - Seizure precautions - Aspiration precautions - Versed for breakthrough seizure as needed - Consider nephrology consult Rxx -Neurochecks Q2 hourly -Sodium checks Q3 hourly -Follow-up with urine electrolytes -NG tube placement if sodium continues to rise in spite of D5W #Mild VERO, resolved DDx: Rhabdomyolysis, lithium, thiazide - Patient presented with elevated BUN and creatinine initial was 1.2 down to 0.8 with baseline creatinine 0.9 from 08/18/2024. -Patient is on lithium 300 mg twice daily, HTCz 25 mg once daily and lisinopril 10 mg once daily Rx - Avoid nephrotoxic agents - Renally dose medications - Strict intake and output Rxx - Follow-up with lithium levels #Elevated CK -In the setting of seizure -Total CK went up from 377 to 684 Rx - s/p D5W #Lactic acidosis, resolved -Initial lactic acid was 2 downtrended to 1.5. Heme #Normocytic anemia -Patient came with hemoglobin of 13.2. Rx - PRBC if hemoglobin drops below 7 Rxx - Daily labs Endo #Mild hyperglycemia -A1c 5.0 Rx -Blood sugar checks Q6 hourly as patient is n.p.o. ID No active issue ICU health maintenance: DVT prophylaxis: Heparin SQ Q6 hourly GI prophylaxis: Protonix IV daily Diet: NPO Aceves: PLACED Lines: Peripherals Drips: D5W at 150 cc/h Vent: None CODE STATUS: Full code Reason of hospitalization:Patient is admitted to ICU for management of symptomatic hypoosmolar euvolemic hyponatremia with seizures due to medication [lithium] and possible psychogenic polydipsia. Patient discussed with my attending, Dr. Mera and senior resident Dr. See (PGY-2) Kevin Hunter, PGY-1
[2025-04-30 11:04] LABS: Lactate (Lactic Acid) 1.5 mMol/L (0.4-2.0)
[2025-04-30 13:47] LABS: Sodium 112 mMol/L (136-145)
[2025-04-30] MEDS: LORazepam 2 MG/ML VIAL IVP (16:09)
[2025-04-30] MEDS: HALOPERIDOL LACT INJ 5 MG/ML VIAL 10 MG IV (16:16)
[2025-04-30] MEDS: DEXTROSE 5%-WATER 1,000 ML 175 ML IV (16:31)
[2025-04-30 17:09] LABS: Sodium 111 mMol/L (136-145)
[2025-04-30 20:15] LABS: Sodium 112 mMol/L (136-145)
[2025-04-30 22:23] LABS: Sodium 112 mMol/L (136-145)
[2025-04-30] MEDS: DEXTROSE 5%-WATER 1,000 ML 100 ML IV (22:30)
[2025-04-30] MEDS: MORPHINE SULF INJ 4 MG/ML VIAL IVP (23:30)
[2025-05-01] VITALS (19 sets, daily range): BP systolic 102–150; BP diastolic 58–82; PULSE 61–98; RESP 13–98; TEMP 36.3–37.3; O2SAT 93–100
[2025-05-01 02:28] LABS: Sodium 113 mMol/L (136-145)
[2025-05-01] MEDS: DEXTROSE 5%-WATER 1,000 ML 150 ML IV ×2 (02:40→17:41)
[2025-05-01 04:08] LABS: Basophils # (Auto) 0.0 Thou/mm3 (0.0-0.2); Basophils % (Auto) 0 % (0-2.5); Eosinophils # (Auto) 0.0 Thou/mm3 (0.0-0.5); Eosinophils % (Auto) 1 % (0-10); Hematocrit 36.6 % (41.0-53.0); Hemoglobin 13.9 g/dL (13.5-16.0); Immature Granulocytes Auto 0.03 Thou/mm3 (0.00-0.00); Lymphocytes # (Auto) 0.9 Thou/mm3 (1.0-4.8); Lymphocytes % (Auto) 11 % (10-50); Mean Corpuscular HGB Conc 38.0 g/dl (31.0-37.0); Mean Corpuscular Hemoglobin 31.7 pg (25.0-35.0); Mean Corpuscular Volume 84 fL (80-100); Monocytes # (Auto) 0.7 Thou/mm3 (0.0-0.8); Monocytes % (Auto) 8 % (0-12); Neutrophils # (Auto) 7.1 Thou/mm3 (1.8-7.7); Neutrophils % (Auto) 81 % (37-80); Nucleated Red Blood Cell # 0.00 Thou/mm3 (0.00-0.00); Nucleated Red Blood Cell % 0 /100 WBC (0); Platelet Count 148 Thou/mm3 (140-440); RDW Standard Deviation 38.8 fL (35.1-43.9); Red Blood Count 4.38 Miln/mm3 (4.50-5.90); White Blood Count 8.7 Thou/mm3 (3.8-10.6)
[2025-05-01 04:27] LABS: INR 1.1 (0.9-1.3); Partial Thromboplastin Time 29.1 Seconds (22.0-36.0); Prothrombin Time 11.2 Seconds (9.0-12.2)
[2025-05-01 04:58] LABS: Magnesium 2.0 mg/dL (1.6-2.6); Phosphorous 1.3 mg/dL (2.4-5.1)
[2025-05-01 05:01] LABS: Sodium 112 mMol/L (136-145)
[2025-05-01] MEDS: DEXTROSE 5%-WATER 1,000 ML 100 ML IV (06:05)
[2025-05-01] MEDS: HEPARIN SOD INJ 5000 UNIT/ML VIAL SC ×3 (06:52→21:18)
[2025-05-01 08:14] LABS: Alanine Aminotransferase 194 U/L (10-49); Albumin, Serum 5.1 gm/dL (3.5-5.0); Albumin/Globulin Ratio 1.8 (1.2-2.2); Alkaline Phosphatase 66 U/L (46-116); Anion Gap 11 (7-16); Aspartate Amino Transferase 159 U/L (0-34); BUN/Creatinine Ratio 6 Ratio (12-20); Bilirubin,Total 2.2 mg/dL (0.3-1.2); Blood Urea Nitrogen < 5 mg/dL (9-23); Calcium 9.2 mg/dL (8.3-10.6); Calcium (Corrected) 9.2 mg/dL (8.5-10.1); Carbon Dioxide 21.4 mMol/L (20.0-31.0); Chloride 84 mMol/L (98-107); Creatinine (Component) 0.8 mg/dL (0.6-1.3); Estimated Creatinine Clearance 119.9 mL/min (>60); Globulin 2.9 gm/dL (2.3-3.5); Glucose 119 mg/dL (74-106); Osmolality,Calculated 232 (275-295); Potassium 3.5 mMol/L (3.4-5.1); Total Protein 8.0 gm/dL (5.7-8.2); eGFR > 60 See Note
[2025-05-01 08:20] LABS: Sodium 116 mMol/L (136-145)
[2025-05-01] MEDS: DEXTROSE 5%-WATER 1,000 ML 50 ML IV (08:20)
[2025-05-01] MEDS: POT PHOS 15 mMol in NS 250 ML 15 MMOL/250 ML BAG 62.5 MMOL IV (09:41)
[2025-05-01] MEDS: NAPH,KPH MBDB 1 PACKET (1.5 GM) PO (09:42)
--- NOTE | 2025-05-01 10:41 | ESPR_ITS ---
<Statement entered by En Chawla MD - 05/01/25 17:10> I have reviewed the note and agree with the resident's assessment & plan with exceptions as below. I have personally reviewed labs, imaging, home meds/prior records, examined the patient, formulated and discussed management plan with my attending Patient was seen examined bedside's morning. No acute overnight events. Patient sodium overnight did trend down to the 112 and repeat this a.m. was 116. Decrease D5W to 50 cc/h's and on repeat in the afternoon was still 116 therefore discontinue D5W. Patient is currently AO x 3 and following commands. At this time we will downgraded back to the medical floors with instructions to keep sodium Q4 and to have a goal sodium of 120-122. Also consulted neurology for new onset seizures which is likely secondary to hyponatremia giving rapid improvement and no further seizures. En Chawla PGY2 Disclaimer: Even though this this note was dictated by speech recognition and even though it was carefully revised there may still be minor errors in asset protection greeter due to voice recognition software. Documentation for date of: 05/01/25 Subjective Subjective Interval history: This patient is a 40-year-old male with past medical history of schizoaffective disorder and hypertension was brought in to the ED from [facility] on 04/29/2025 with chief complaint of altered mental status/postictal confusion after an [facility]. Nurse was contacted from [facility] after calling at [phone] to get further history. She stated that patient had a seizure episode lasting for 3 minutes spontaneously seizing on its own. Patient did hit his head on the floor. He did not had a bladder or bowel incontinence however he remained in postictal confusion and was not responding. There was foaming seen around his mouth and he was having trouble breathing. Blood sugars at that time were 121 mg/dL and oxygen was placed. At baseline patient is alert and oriented x 3. He had no episode of seizures before. EMS arrived at the scene and found him confused and anxious and brought him to the ED. In the ED, patient's vital showed blood pressure 140/99 heart rate 105, respiratory rate 18 and afebrile. He was saturating well on room air. Labs showed hemoglobin 12.9, platelet 170. ABG showed pH 7.45, pCO2 34, pO2 90. Chemistry panel showed critical hyponatremia with sodium 107, hypokalemia potassium 2.8, hypochloremia chloride 73 with bicarb 15.1. Anion gap 19. BUN 7 and creatinine 1.0 baseline creatinine 0.9 from 08/18/2024. Blood glucose 155. A1c 5.0. Lactic acid 2.6. Magnesium 1.4. T. bili 1.4 down trended to 1.2. AST and ALT mildly elevated. AST 99 and ALT 217. Total creatinine kinase 377 down trended to 684. Troponin I was negative. Procalcitonin was negative. TSH within normal limits. Urinalysis was colorless with specific gravity 1.001. pH 7.0. U tox was negative. Chart review showed patient has hep C reactive antibody. COVID was negative. Head CT showed no acute changes. Cervical spine CT showed no evidence of fracture. CT chest showed left lower lobe consolidation, contusion versus pneumonia. Patient was given loading dose of Keppra 2 g x 1, IV Zofran, and Ativan 2 mg IV x 1, hypertonic saline 3% at 30 cc/h, IV 60 mEq KCl IV was started. As soon as Aceves catheter was placed patient started putting out less urine around 3.5 L therefore 3% hypertonic saline was stopped as repeat sodium showed spontaneous correction from 107->109->111 in 4 hours. Desmopressin was administered to IV 2 mcg x 1. However patient was still dumping urine around 1.8 L post first desmopressin therefore another desmopressin 2 mcg was administered and D5W at 150 cc/h were started to avoid rapid correction of sodium as recent sodium is 114. PMH: As above PSH: Nonsignificant Allergies: Penicillin and prochlorperazine causes shock SH: Remote history of drinking alcohol and history of meth use Home medications: Buspirone 10 mg once daily, Cardizem 180 mg once daily, hydrochlorothiazide 25 mg once daily, lisinopril 10 mg once daily, lithium 300 mg twice daily, olanzapine 10 mg once a day (compliant for several months in [facility]) Patient is admitted to ICU for management of symptomatic hypoosmolar euvolemic hyponatremia with seizures due to medication [lithium] and possible psychogenic polydipsia. Interval History 04/30/2025: Patient was admitted overnight. No acute events overnight. Patient was not cooperative with examination, but was noted to have movement in all 4 extremities and resisted against this movement of the patient's bilateral upper extremities. The patient was continued on D5W as the patient's sodium remained in goal of around 113. Security that was with the patient left early in the morning and noted that the patient no longer needs an officer from the [facility] to watch the patient. Later that day, the patient became more agitated and attempted to get out of the bed during lab draw for the patient's sodium check. At that time, nursing staff noted that the patient stated shut up and I can't even get up . Patient was initially given lorazepam, but this was ineffective, so Haldol was administered, resulting in the patient calming down. Repeat sodium drawn at that time showed a sodium of 111, so D5W was discontinued. Will repeat sodium at 1900 to reassess for need for D5W. 05/01/2025: No acute events overnight. Patient seen and examined at bedside, noted to be much more cooperative today. Patient is alert and oriented to self, but not to place and location. The patient does not remember what had happened to him and stated that he does not even member being in [facility]. Patient does remember his childhood and growing up in [place], but was unable to recall much else. Attempted to contact the patient's sister to see what the patient's baseline is, but no response. Most recent sodium was 116, so D5W was running at 50 cc/h to maintain a target sodium of 120-122 until the patient is cleared 48 hours from when patient was first started on sodium correction. Will recheck sodium every 4 hours and obtain urine osmolality and urine electrolytes. Repleted patient's phosphorus with potassium phosphate mixed in to 250 cc of NS and 1 bag and 250 cc of D5W and another bag. Will recommend that the patient follow-up with outpatient GI for management of elevated LFTs and history of hep C reactive antibody test. Patient will be downgraded to medical floors for further management. Exam Vital Signs Temp Pulse Resp BP Pulse Ox O2 Del Method 98.9 F 81 19 120/78 93 L Room Air 05/01/25 08:00 05/01/25 10:00 05/01/25 10:00 05/01/25 10:00 05/01/25 10:00 05/01/25 08:00 Narrative Exam Physical Exam: General: Alert, no acute distress. Skin: Warm, dry, intact. Head: Normocephalic, atraumatic. Eye: Normal conjunctiva, PERRL. Throat: Oral mucosa moist. No obvious lesions in oropharynx. Cardiovascular: Regular rate and rhythm, no murmur, +S1/S2. Respiratory: Lungs are clear to auscultation, respirations unlabored, no crackles, no wheezing. Gastrointestinal: Soft, nontender, non-distended. No guarding or rebound tenderness. Extremities: No edema, no cyanosis, no clubbing. 2+ radial pulse bilaterally, 2+ pedal pulse bilaterally. Neuro: No focal deficits observed. Conversant, moving all extremities. No overt cerebellar signs/incoordination. Psychiatric: Cooperative, appropriate affect. Objective Labs 05/01/25 03:45 05/01/25 10:12 Labs: Laboratory Results - last 24 hr 04/30/25 04/30/25 04/30/25 10:57 13:00 16:20 WBC RBC Hgb Hct MCV MCH MCHC RDW Std Deviation Plt Count Neut % (Auto) Lymph % (Auto) [place] % (Auto) Eos % (Auto) Baso % (Auto) Neut # (Auto) Lymph # (Auto) [place] # (Auto) Eos # (Auto) Baso # (Auto) Immature Gran # (Auto) Absolute Nucleated RBC Immature Gran % Nucleated RBC % PT INR APTT Sodium 112 L* 111 L* Potassium Chloride Carbon Dioxide Anion Gap BUN Creatinine Estim Creat Clear Calc eGFR BUN/Creatinine Ratio Glucose Calculated Osmolality Lactic Acid 1.5 Calcium Corrected Calcium Phosphorus Magnesium Total Bilirubin AST ALT Alkaline Phosphatase Total Protein Albumin Globulin Albumin/Globulin Ratio 04/30/25 04/30/25 05/01/25 19:10 21:34 01:18 WBC RBC Hgb Hct MCV MCH MCHC RDW Std Deviation Plt Count Neut % (Auto) Lymph % (Auto) [place] % (Auto) Eos % (Auto) Baso % (Auto) Neut # (Auto) Lymph # (Auto) [place] # (Auto) Eos # (Auto) Baso # (Auto) Immature Gran # (Auto) Absolute Nucleated RBC Immature Gran % Nucleated RBC % PT INR APTT Sodium 112 L* 112 L* 113 L* Potassium Chloride Carbon Dioxide Anion Gap BUN Creatinine Estim Creat Clear Calc eGFR BUN/Creatinine Ratio Glucose Calculated Osmolality Lactic Acid Calcium Corrected Calcium Phosphorus Magnesium Total Bilirubin AST ALT Alkaline Phosphatase Total Protein Albumin Globulin Albumin/Globulin Ratio 05/01/25 05/01/25 05/01/25 03:45 06:50 07:14 WBC 8.7 RBC 4.38 L Hgb 13.9 Hct 36.6 L MCV 84 MCH 31.7 MCHC 38.0 H RDW Std Deviation 38.8 Plt Count 148 Neut % (Auto) 81 H Lymph % (Auto) 11 [place] % (Auto) 8 Eos % (Auto) 1 Baso % (Auto) 0 Neut # (Auto) 7.1 Lymph # (Auto) 0.9 L [place] # (Auto) 0.7 Eos # (Auto) 0.0 Baso # (Auto) 0.0 Immature Gran # (Auto) 0.03 H Absolute Nucleated RBC 0.00 Immature Gran % 0 Nucleated RBC % 0 PT 11.2 INR 1.1 APTT 29.1 Sodium 112 L* Cancelled 116 L* Potassium Cancelled 3.5 D Chloride Cancelled 84 L Carbon Dioxide Cancelled 21.4 Anion Gap Cancelled 11 BUN Cancelled < 5 L Creatinine Cancelled 0.8 Estim Creat Clear Calc Cancelled 119.9 eGFR Cancelled > 60 BUN/Creatinine Ratio Cancelled 6 L Glucose Cancelled 119 H D Calculated Osmolality Cancelled 232 L Lactic Acid Calcium Cancelled 9.2 Corrected Calcium Cancelled 9.2 Phosphorus 1.3 L Magnesium 2.0 Total Bilirubin Cancelled 2.2 H D AST Cancelled 159 H ALT Cancelled 194 H Alkaline Phosphatase Cancelled 66 Total Protein Cancelled 8.0 Albumin Cancelled 5.1 H D Globulin Cancelled 2.9 Albumin/Globulin Ratio Cancelled 1.8 ABG Interpretation ABG results: 04/29/25 04/30/25 23:20 01:20 ABG pH 7.45 ABG pCO2 34 ABG pO2 90 ABG HCO3 24 ABG O2 Saturation 98 ABG Base Excess 0 VBG pH 7.35 VBG pCO2 28 L VBG pO2 113 H VBG Base Excess -9 L Quality Measures Quality Measures VTE prophylaxis (Heparin SC ) Assessment & Plan Assessment Current Active Medications: Generic Name Dose Route Start Last Admin Trade Name Freq PRN Reason Stop Dose Admin Acetaminophen 650 mg 04/30/25 02:19 Acetaminophen 325 Mg Tablet PO 05/30/25 02:18 Q6H PRN Fever >101.5 Diazepam 20 mg 04/30/25 00:38 Diazepam Inj 5 Mg/Ml Vial 2 Ml IVP 05/05/25 00:37 Q5MIN PRN SEIZURES Heparin Sodium (Porcine) 5,000 unit 04/30/25 06:00 05/01/25 06:52 Heparin Sod Inj 5000 Unit/Ml Vial SC 05/14/25 05:59 5,000 unit Q8HR ARMANDO Administration Dextrose 1,000 mls @ 50 mls/hr 05/01/25 08:30 05/01/25 08:20 D5w IV 05/31/25 08:29 50 mls/hr .Q20H ARMANDO Administration Potassium Phosphate 15 mmol/ 255 mls @ 63.75 mls/hr 05/01/25 13:15 Dextrose IV 05/01/25 17:14 X1 ONE Potassium Phosphate 15 mmol in 250 mls @ 62.5 mls/hr 05/01/25 09:45 05/01/25 09:41 Pot Phos 15 Mmol In Ns 250 Ml IV 05/01/25 13:44 62.5 mls/hr X1 ONE Administration Lorazepam 2 mg 05/01/25 01:00 Lorazepam 2 Mg/Ml Vial IVP 05/06/25 00:59 X1 PRN AGITATION (SEVERE) Ondansetron HCl 4 mg 04/30/25 02:19 Ondansetron Inj 2 Mg/Ml Inj 2 Ml IVP 05/30/25 02:18 Q6H PRN NAUSEA OR VOMITING Protocol Pantoprazole Sodium 40 mg 04/30/25 09:00 05/01/25 08:24 Pantoprazole Inj 40 Mg Vial IVP 05/30/25 08:59 40 mg QDAY ARMANDO Administration Plan This patient is a 40-year-old male with past medical history of schizoaffective disorder and hypertension was brought in to the ED from [facility] on 04/29/2025 with chief complaint of altered mental status/postictal confusion after an [facility] of seizure [facility] the [facility]. Patient is admitted to ICU for management of symptomatic hypoosmolar euvolemic hyponatremia with seizures due to medication [lithium] and possible psychogenic polydipsia. Neurology #Acute encephalopathy #Seizure with ground level fall #Symptomatic euvolemic hyponatremia DDx: Cale medication causing nephrogenic DI, psychogenic polydipsia, thiazide diuretics -Patient presented with witnessed seizure in the [facility] with postictal confusion. Patient is on lithium 300 mg twice daily, olanzapine 10 mg once daily and hydrochlorothiazide 25 mg once a day. -Patient possibly developed excessive thirst due to polyuria caused by lithium hence he drank more water causing hyponatremia -In the ED, patient's vital showed blood pressure 140/99 heart rate 105, respiratory rate 18 and afebrile. He was saturating well on room air. -Critical sodium 107, chloride 73 and potassium 2.8. -Patient was given loading dose of Keppra 2 g x 1, IV Zofran, and Ativan 2 mg IV x 1, hypertonic saline 3% at 30 cc/h, IV 60 mEq KCl IV was started. As soon as Aceves catheter was placed patient started putting out less urine around 3.5 L therefore 3% hypertonic saline was stopped as repeat sodium showed spontaneous correction from 107->109->111 in 4 hours. Desmopressin was administered to IV 2 mcg x 1. However patient was still dumping urine around 1.8 L post first desmopressin therefore another desmopressin 2 mcg was administered and D5W at 150 cc/h were started to avoid rapid correction of sodium. Dx -Head CT was negative. -Cervical spine CT showed no acute fracture. -U tox was negative. Rx -Continue with D5W at 50 cc/h to prevent rapid correction of sodium - Goal of sodium 120-122 until 05/01 23:45 (48h from initial correction) to avoid osmotic demyelination syndrome - Desmopressin given 4 mcg x 1 - Seizure precautions - Aspiration precautions - Versed for breakthrough seizure as needed - Neurology consulted, appreciate recommendations #History of schizoaffective disorder -Patient is on lithium 300 mg twice daily and olanzapine 10 mg once daily. Rx - Resumed home olanzapine 10 mg daily - Versed for breakthrough seizures Cardiovascular #Mild hypotension - History of hypertension -Patient has been having polyuria attributing to soft blood pressure. Rx -Holding home thiazide diuretic due to hyponatremia -Holding lisinopril due to soft blood pressure #Remote history of methamphetamine use - Recent U tox was negative. Rx - No active intervention Respiratory No active issue GI and F/E/N #Mild hepatitis #History of hep C and hx of alcohol use -Patient has a history of reactive hep C antibody. - AST 94, ALT 198. T. bili 1.2. Rx - Follow-up with liver panel - Per chart review, hepatitis panel revealed hep C reactive antibody -Patient has remote history of drinking alcohol -No active intervention No active issue Renal #Symptomatic hyponatremia DDx: Cale medication causing nephrogenic DI with excess thirst, psychogenic polydipsia, thiazide diuretics -Patient presented with witnessed seizure in the [facility] with postictal confusion. Patient is on lithium 300 mg twice daily, olanzapine 10 mg once daily and hydrochlorothiazide 25 mg once a day. -Patient possibly developed excessive thirst due to polyuria caused by lithium hence he drank more water causing hyponatremia -In the ED, patient's vital showed blood pressure 140/99 heart rate 105, respiratory rate 18 and afebrile. He was saturating well on room air. -Critical sodium 107, chloride 73 and potassium 2.8. -Patient was given loading dose of Keppra 2 g x 1, IV Zofran, and Ativan 2 mg IV x 1, hypertonic saline 3% at 30 cc/h, IV 60 mEq KCl IV was started. As soon as Aceves catheter was placed patient started putting out less urine around 3.5 L therefore 3% hypertonic saline was stopped as repeat sodium showed spontaneous correction from 107->109->111 in 4 hours. Desmopressin was administered to IV 2 mcg x 1. However patient was still dumping urine around 1.8 L post first desmopressin therefore another desmopressin 2 mcg was administered and D5W at 150 cc/h were started to avoid rapid correction of sodium as recent sodium is 114. Dx -Head CT was negative. -Cervical spine CT showed no acute fracture. -U tox was negative. - 3 AM UO : 3.4 L -4 AM UO:2.4 L, In total : 5.8 L approx -Cale levels 0.27 -Urine electrolytes sodium <10, potassium <2, and chloride <20 Rx - Goal of sodium correction 4 to 6 mEq in first 24 hours to avoid osmotic demyelination syndrome - Desmopressin given 4 mcg x 1 - IV 60 mEq KCl given x 1 - Seizure precautions - Aspiration precautions - Versed for breakthrough seizure as needed - Consider nephrology consult -Sodium checks Q4 hourly -NG tube placement if sodium continues to rise in spite of D5W #Mild VERO, resolved DDx: Rhabdomyolysis, lithium, thiazide - Patient presented with elevated BUN and creatinine initial was 1.2 down to 0.8 with baseline creatinine 0.9 from 08/18/2024. -Patient is on lithium 300 mg twice daily, HTCz 25 mg once daily and lisinopril 10 mg once daily Rx - Avoid nephrotoxic agents - Renally dose medications - Strict intake and output #Elevated CK -In the setting of seizure -Total CK went up from 377 to 684 Rx - s/p IVF hydration #Lactic acidosis, resolved -Initial lactic acid was 2 downtrended to 1.5. #Hypophosphatemia Dx: Phosphorus 1.3 on 05/01 morning labs, likely secondary to dilution from excessive water intake Rx: Potassium phosphate IV in 250 mL of NS and 250 mL of D5W and 1 packet of Neutraphos given as to not cause extensive shifts in sodium Heme #Normocytic anemia -Patient came with hemoglobin of 13.2. Rx - PRBC if hemoglobin drops below 7 Rxx - Daily labs Endo #Mild hyperglycemia -A1c 5.0 Rx -Blood sugar checks ACHS ID No active issue ICU health maintenance: DVT prophylaxis: Heparin SQ Q6 hourly GI prophylaxis: Protonix IV daily Diet: Full liquid Aceves: PLACED Lines: Peripherals Drips: N/A Vent: None CODE STATUS: Full code Reason of hospitalization:Patient is admitted to ICU for management of symptomatic hypoosmolar euvolemic hyponatremia with seizures due to medication [lithium] and possible psychogenic polydipsia. Patient discussed with my attending, Dr. Mera and senior resident Dr. Noel (PGY-2) Kevin Hunter, PGY-1
[2025-05-01 11:09] LABS: Chloride,Urine Random < 20.0 mMol/L (55.0-125.0); Potassium,Urine Random < 2 mMol/L (12-62); Sodium,Urine Random < 10.0 mMol/L (20.0-110.0)
--- NOTE | 2025-05-01 12:48 | PD.INTPROG ---
Documentation for date of: 05/01/25 Subjective Subjective Interval history: This is a 40-year-old male who is [facility] for seizure and hyponatremia. The patient has a history of schizoaffective disorder and is on lithium at the [facility]. Overnight the patient was agitated at some point in time and given Ativan. This morning the patient is sedated. He is net -1.6 L. His sodium has been correcting rather rapidly and he is on D5W. Unclear if he is still altered this morning due to the hyponatremia versus postictal. 05/01-no acute overnight events, today patient is awake and alert and able to respond to questions though still slightly confused, afebrile, brisk urinary output and has had output approximately 4.6 L in the last 24 hours Critical Care Note Critical care time (min.): 0 Exam Vital Signs Temp Pulse Resp BP Pulse Ox O2 Del Method 98.9 F 91 19 124/68 97 Room Air 05/01/25 12:00 05/01/25 12:00 05/01/25 12:00 05/01/25 12:00 05/01/25 12:00 05/01/25 12:00 Narrative Exam General-no acute distress, awake alert and oriented x 2, normal body habitus HEENT-normocephalic, atraumatic, sclera icteric, oropharynx is dry, EOMI Chest-lungs clear to auscultation bilaterally, heart regular rhythmic, no bradycardia murmurs auscultated on exam, no pain palpation of chest wall Abdomen-soft, nontender, sounds present, no rebound or guarding Extremities-no edema lower extremities, pulses palpable, no clubbing or cyanosis, no mottling, no focal deficits Physical Exam Completion Physical Exam Complete?: Yes Objective - Crating And Moving Estimator Labs 05/01/25 03:45 05/01/25 07:14 Labs: Laboratory Results - last 24 hr 04/30/25 04/30/25 04/30/25 13:00 16:20 19:10 WBC RBC Hgb Hct MCV MCH MCHC RDW Std Deviation Plt Count Neut % (Auto) Lymph % (Auto) [place] % (Auto) Eos % (Auto) Baso % (Auto) Neut # (Auto) Lymph # (Auto) [place] # (Auto) Eos # (Auto) Baso # (Auto) Immature Gran # (Auto) Absolute Nucleated RBC Immature Gran % Nucleated RBC % PT INR APTT Sodium 112 L* 111 L* 112 L* Potassium Chloride Carbon Dioxide Anion Gap BUN Creatinine Estim Creat Clear Calc eGFR BUN/Creatinine Ratio Glucose Calculated Osmolality Calcium Corrected Calcium Phosphorus Magnesium Total Bilirubin AST ALT Alkaline Phosphatase Total Protein Albumin Globulin Albumin/Globulin Ratio Ur Random Sodium Ur Random Potassium Ur Random Chloride 04/30/25 05/01/25 05/01/25 21:34 01:18 03:45 WBC 8.7 RBC 4.38 L Hgb 13.9 Hct 36.6 L MCV 84 MCH 31.7 MCHC 38.0 H RDW Std Deviation 38.8 Plt Count 148 Neut % (Auto) 81 H Lymph % (Auto) 11 [place] % (Auto) 8 Eos % (Auto) 1 Baso % (Auto) 0 Neut # (Auto) 7.1 Lymph # (Auto) 0.9 L [place] # (Auto) 0.7 Eos # (Auto) 0.0 Baso # (Auto) 0.0 Immature Gran # (Auto) 0.03 H Absolute Nucleated RBC 0.00 Immature Gran % 0 Nucleated RBC % 0 PT 11.2 INR 1.1 APTT 29.1 Sodium 112 L* 113 L* 112 L* Potassium Chloride Carbon Dioxide Anion Gap BUN Creatinine Estim Creat Clear Calc eGFR BUN/Creatinine Ratio Glucose Calculated Osmolality Calcium Corrected Calcium Phosphorus 1.3 L Magnesium 2.0 Total Bilirubin AST ALT Alkaline Phosphatase Total Protein Albumin Globulin Albumin/Globulin Ratio Ur Random Sodium Ur Random Potassium Ur Random Chloride 05/01/25 05/01/25 05/01/25 06:50 07:14 10:35 WBC RBC Hgb Hct MCV MCH MCHC RDW Std Deviation Plt Count Neut % (Auto) Lymph % (Auto) [place] % (Auto) Eos % (Auto) Baso % (Auto) Neut # (Auto) Lymph # (Auto) [place] # (Auto) Eos # (Auto) Baso # (Auto) Immature Gran # (Auto) Absolute Nucleated RBC Immature Gran % Nucleated RBC % PT INR APTT Sodium Cancelled 116 L* Potassium Cancelled 3.5 D Chloride Cancelled 84 L Carbon Dioxide Cancelled 21.4 Anion Gap Cancelled 11 BUN Cancelled < 5 L Creatinine Cancelled 0.8 Estim Creat Clear Calc Cancelled 119.9 eGFR Cancelled > 60 BUN/Creatinine Ratio Cancelled 6 L Glucose Cancelled 119 H D Calculated Osmolality Cancelled 232 L Calcium Cancelled 9.2 Corrected Calcium Cancelled 9.2 Phosphorus Magnesium Total Bilirubin Cancelled 2.2 H D AST Cancelled 159 H ALT Cancelled 194 H Alkaline Phosphatase Cancelled 66 Total Protein Cancelled 8.0 Albumin Cancelled 5.1 H D Globulin Cancelled 2.9 Albumin/Globulin Ratio Cancelled 1.8 Ur Random Sodium < 10.0 L Ur Random Potassium < 2 L Ur Random Chloride < 20.0 L Assessment & Plan Additional Assessment Additional Assessment: In summary this is a 40-year-old male admitted to the ICU for hyponatremia and 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 This may be secondary to the patient's hyponatremia. - Head CT is negative - Neuro eval pending - Improved CV Hypertension-patient is unable to take p.o. meds at this time. His current blood pressure is within parameters. Will hold for now. Resp Stable Renal Hyponatremia-patient presented with a sodium of 107. He has dumped a significant amount of urine with a sodium currently of 114. D5W was started and his last draw returned at 113. Corrected no faster than 6 mill equivalents in the first 24 hours therefore target sodium would be 113 -Will obtain urine studies -Patient is on hydrochlorothiazide as an outpatient, this will be stopped -Today's goal sodium is no greater than 122 -Sodium checks every 4 hours Hypokalemia-this has been repleted GI Transaminitis-patient has had elevated LFTs since 2018. Patient's hepatitis panel from 2020 showed positive for hep C. Repeat an acute viral panel and if this continues to be positive does need to follow-up with GI for hepatitis C. Will evaluate his medications to see if his elevated LFTs may also be related to drug-induced liver injury. - Abdomen/pelvis CT from yesterday noted, no acute liver lesions - Follow-up on viral panel Endo Hyperglycemia-likely due to the patient's D5W - Patient is on less D5 today Heme DVT prophylaxis-Lovenox ID Stable Case discussed with ICU team Stable for downgrade Labs imaging and records reviewed Approximately 38 minutes required for evaluation, exam, review, dimension, discussion formulation of plan of care for this ill patient with severe hyponatremia and seizures who is at high risk for further and ongoing decompensation. Provider Notation Provider Notation: Although this document has been carefully reviewed, there may still be some phonetic and other typographical errors. These errors are purely grammatical due to imperfections in the software program and should not be construed in any way to compromise the substance of the patient's medical care during this visit. Thank you for the opportunity and privilege in assisting you with this patient's care and management.
[2025-05-01 13:10] LABS: Sodium 116 mMol/L (136-145)
--- NOTE | 2025-05-01 13:24 | PC.NURSE ---
Pt to room from ICU. No signs of distress. AAOx4. Stable vitals. Endorsing body aches.
[2025-05-01 14:48] LABS: Sodium 119 mMol/L (136-145)
--- NOTE | 2025-05-01 14:48 | ESPR_ITS ---
<Statement entered by Majo Enriquez MD - 05/02/25 05:38> Patient was seen and examined at bedside. I agree on the assessment and plan on this note as documented by resident Dr Franky Clark DO PGY1. 40-year-old male with past medical history of schizoaffective disorder and hypertension admitted to [facility] for further workup for seizure with ground-level fall found to have severe symptomatic euvolemic hyponatremia, sodium 107 on presentation was admitted to intensive care unit for correction, patient sodium 116, stable to be downgraded to telemetry. Goal sodium for midnight tonight 120?122, sodium increased to 119 we will continue IV D5W at 150 cc/h to avoid overcorrection. Otherwise patient on full liquid diet, neurology is consulted recommending EEG. Continue to monitor patient will consider nephrology consult in a.m. Case discussed with attending Dr. Taylor Enriquez MD PGY-2 Documentation for date of: 05/01/25 Subjective Subjective Interval history: Patient is a 40-year-old male admitted because of a severe hyponatremia and seizure has a history of schizoaffective disorder and [facility]. In admission, patient had a critical hyponatremia with sodium 107, requiring ICU admission on 04/30/2025. Other critical lab values during admission includes hypokalemia potassium 2.8, bicarb P15.1, anion gap 19, ABG pH 7.45, pCO2 34. On 05/01/2025, patient's sodium level has improved to 119 and was downgraded to regular floors. Current goal of patient's sodium level is maintaining 120 to 122 until this evening. Will need to prevent rapid correction of sodium through D5W. Labs reviewed and patient examined at the bedside. Denies chest pain, palpation, SOB, abdominal pain, N/V, fevers or chills. Exam Vital Signs Temp Pulse Resp BP Pulse Ox O2 Del Method 98.9 F 91 19 124/68 97 Room Air 05/01/25 12:00 05/01/25 13:48 05/01/25 12:00 05/01/25 12:00 05/01/25 12:00 05/01/25 12:00 Narrative Exam General: No acute distress, AAO x3 Eye: Normal conjunctiva, no scleral icterus HENT: Normocephalic, atraumatic, hearing intact to conversation at normal volume, moist oral mucosa Neck: Supple, non-tender, no JVD, no lymphadenopathy Lungs: Non-labored respirations, symmetric chest rise, Clear to auscultate bilaterally, No wheezing, rhonchi, crackles Heart: Peripheral pulses intact bilaterally, Regular Rate and Rhythm. Abdomen: Soft, non-tender, non-distended, no palpable masses Musculoskeletal: Normal range of motion and strength, No cyanosis or edema, No visible joint swelling Skin: Skin is warm, dry, no rashes or lesions. Neuro: Cranial nerves II-XII grossly intact. Strength 5/5 throughout. Sensations intact to light touch. Objective Labs 05/02/25 04:39 05/02/25 15:12 Labs: Laboratory Results - last 24 hr 04/30/25 04/30/25 04/30/25 16:20 19:10 21:34 WBC RBC Hgb Hct MCV MCH MCHC RDW Std Deviation Plt Count Neut % (Auto) Lymph % (Auto) [place] % (Auto) Eos % (Auto) Baso % (Auto) Neut # (Auto) Lymph # (Auto) [place] # (Auto) Eos # (Auto) Baso # (Auto) Immature Gran # (Auto) Absolute Nucleated RBC Immature Gran % Nucleated RBC % PT INR APTT Sodium 111 L* 112 L* 112 L* Potassium Chloride Carbon Dioxide Anion Gap BUN Creatinine Estim Creat Clear Calc eGFR BUN/Creatinine Ratio Glucose Calculated Osmolality Calcium Corrected Calcium Phosphorus Magnesium Total Bilirubin AST ALT Alkaline Phosphatase Total Protein Albumin Globulin Albumin/Globulin Ratio Ur Random Sodium Ur Random Potassium Ur Random Chloride 05/01/25 05/01/25 05/01/25 01:18 03:45 06:50 WBC 8.7 RBC 4.38 L Hgb 13.9 Hct 36.6 L MCV 84 MCH 31.7 MCHC 38.0 H RDW Std Deviation 38.8 Plt Count 148 Neut % (Auto) 81 H Lymph % (Auto) 11 [place] % (Auto) 8 Eos % (Auto) 1 Baso % (Auto) 0 Neut # (Auto) 7.1 Lymph # (Auto) 0.9 L [place] # (Auto) 0.7 Eos # (Auto) 0.0 Baso # (Auto) 0.0 Immature Gran # (Auto) 0.03 H Absolute Nucleated RBC 0.00 Immature Gran % 0 Nucleated RBC % 0 PT 11.2 INR 1.1 APTT 29.1 Sodium 113 L* 112 L* Cancelled Potassium Cancelled Chloride Cancelled Carbon Dioxide Cancelled Anion Gap Cancelled BUN Cancelled Creatinine Cancelled Estim Creat Clear Calc Cancelled eGFR Cancelled BUN/Creatinine Ratio Cancelled Glucose Cancelled Calculated Osmolality Cancelled Calcium Cancelled Corrected Calcium Cancelled Phosphorus 1.3 L Magnesium 2.0 Total Bilirubin Cancelled AST Cancelled ALT Cancelled Alkaline Phosphatase Cancelled Total Protein Cancelled Albumin Cancelled Globulin Cancelled Albumin/Globulin Ratio Cancelled Ur Random Sodium Ur Random Potassium Ur Random Chloride 05/01/25 05/01/25 05/01/25 07:14 10:12 10:35 WBC RBC Hgb Hct MCV MCH MCHC RDW Std Deviation Plt Count Neut % (Auto) Lymph % (Auto) [place] % (Auto) Eos % (Auto) Baso % (Auto) Neut # (Auto) Lymph # (Auto) [place] # (Auto) Eos # (Auto) Baso # (Auto) Immature Gran # (Auto) Absolute Nucleated RBC Immature Gran % Nucleated RBC % PT INR APTT Sodium 116 L* 116 L* Potassium 3.5 D Chloride 84 L Carbon Dioxide 21.4 Anion Gap 11 BUN < 5 L Creatinine 0.8 Estim Creat Clear Calc 119.9 eGFR > 60 BUN/Creatinine Ratio 6 L Glucose 119 H D Calculated Osmolality 232 L Calcium 9.2 Corrected Calcium 9.2 Phosphorus Magnesium Total Bilirubin 2.2 H D AST 159 H ALT 194 H Alkaline Phosphatase 66 Total Protein 8.0 Albumin 5.1 H D Globulin 2.9 Albumin/Globulin Ratio 1.8 Ur Random Sodium < 10.0 L Ur Random Potassium < 2 L Ur Random Chloride < 20.0 L ABG Interpretation ABG results: 04/29/25 04/30/25 23:20 01:20 ABG pH 7.45 ABG pCO2 34 ABG pO2 90 ABG HCO3 24 ABG O2 Saturation 98 ABG Base Excess 0 VBG pH 7.35 VBG pCO2 28 L VBG pO2 113 H VBG Base Excess -9 L Quality Measures Quality Measures VTE prophylaxis (Heparin SC ) Assessment & Plan Assessment Current Active Medications: Generic Name Dose Route Start Last Admin Trade Name Freq PRN Reason Stop Dose Admin Acetaminophen 650 mg 04/30/25 02:19 Acetaminophen 325 Mg Tablet PO 05/30/25 02:18 Q6H PRN Fever >101.5 Diazepam 20 mg 04/30/25 00:38 Diazepam Inj 5 Mg/Ml Vial 2 Ml IVP 05/05/25 00:37 Q5MIN PRN SEIZURES Heparin Sodium (Porcine) 5,000 unit 04/30/25 06:00 05/01/25 14:16 Heparin Sod Inj 5000 Unit/Ml Vial SC 05/14/25 05:59 5,000 unit Q8HR ARMANDO Administration Potassium Phosphate 15 mmol/ 255 mls @ 63.75 mls/hr 05/01/25 13:15 05/01/25 12:51 Dextrose IV 05/01/25 17:14 63.75 mls/hr X1 ONE Administration Lorazepam 2 mg 05/01/25 01:00 Lorazepam 2 Mg/Ml Vial IVP 05/06/25 00:59 X1 PRN AGITATION (SEVERE) Olanzapine 10 mg 05/02/25 09:00 Olanzapine 5 Mg Tablet PO 06/01/25 08:59 QDAY ARMANDO Ondansetron HCl 4 mg 04/30/25 02:19 Ondansetron Inj 2 Mg/Ml Inj 2 Ml IVP 05/30/25 02:18 Q6H PRN NAUSEA OR VOMITING Protocol Pantoprazole Sodium 40 mg 04/30/25 09:00 05/01/25 08:24 Pantoprazole Inj 40 Mg Vial IVP 05/30/25 08:59 40 mg QDAY ARMANDO Administration Plan This patient is a 40-year-old male with past medical history of schizoaffective disorder and hypertension was brought in to the ED from [facility] on 04/[facility]/2025 with chief complaint of altered mental status/postictal confusion after an episode of seizure at the retirement. Patient is admitted on 04/30/2025 to ICU for management of symptomatic hypoosmolar euvolemic hyponatremia with seizures due to medication [lithium] and possible psychogenic polydipsia. On 05/01/2025, patient's sodium level has improved to 119 and was downgraded to regular floors. #Acute encephalopathy #Seizure with ground level fall #Symptomatic euvolemic hyponatremia -DDx: Gravity medication causing nephrogenic DI, psychogenic polydipsia, thiazide diuretics -Patient presented with witnessed seizure in the retirement with postictal confusion. Patient is on lithium 300 mg twice daily, olanzapine 10 mg once daily and hydrochlorothiazide 25 mg once a day. -Patient possibly developed excessive thirst due to polyuria caused by lithium hence he drank more water causing hyponatremia -In the ED, patient's vital showed blood pressure 140/99 heart rate 105, respiratory rate 18 and afebrile. He was saturating well on room air. -Critical sodium 107, chloride 73 and potassium 2.8. -Patient was given loading dose of Keppra 2 g x 1, IV Zofran, and Ativan 2 mg IV x 1, hypertonic saline 3% at 30 cc/h, IV 60 mEq KCl IV was started. As soon as Aceves catheter was placed patient started putting out less urine around 3.5 L therefore 3% hypertonic saline was stopped as repeat sodium showed spontaneous correction from 107->109->111 in 4 hours. Desmopressin was administered to IV 2 mcg x 1. However patient was still dumping urine around 1.8 L post first desmopressin therefore another desmopressin 2 mcg was administered and D5W at 150 cc/h were started to avoid rapid correction of sodium. -Head CT was negative. -Cervical spine CT showed no acute fracture. -U tox was negative. Plan: -On D5W at 150 cc/h to prevent rapid correction of sodium. May discontinue based on sodium level findings. -Goal of sodium 120-122 until 05/01 23:45 (48h from initial correction) to avoid osmotic demyelination syndrome -Desmopressin given 4 mcg x 1 -Seizure precautions -Aspiration precautions -Versed for breakthrough seizure as needed -Sodium checks Q4 hourly -NG tube placement if sodium continues to rise in spite of D5W -Neurology consulted, appreciate recommendations #Hypophosphatemia -Phosphorus 1.3 on 05/01 morning labs, likely secondary to dilution from excessive water intake -Continue to monitor #History of schizoaffective disorder -Patient's home med lithium 300 mg twice daily and olanzapine 10 mg once daily. -Resumed home olanzapine 10 mg daily. Currently held lithium -Versed for breakthrough seizures #Mild hypotension -History of hypertension -Patient has been having polyuria attributing to soft blood pressure. Plan: -Holding home thiazide diuretic due to hyponatremia -Holding lisinopril due to soft blood pressure #Normocytic anemia -Patient came with hemoglobin of 13.2. -PRBC if hemoglobin drops below 7 -Daily labs #Mild hepatitis #History of hep C and hx of alcohol use -Patient has a history of reactive hep C antibody. -AST 94, ALT 198. T. bili 1.2. -Per chart review, hepatitis panel revealed hep C reactive antibody -Patient has remote history of drinking alcohol -No active intervention #Mild hyperglycemia -A1c 5.0 -Blood sugar checks ACHS #Elevated CK -In the setting of seizure -Total CK went up from 377 to 684 -s/p IVF hydration -Continue to monitor #Remote history of methamphetamine use - Recent U tox was negative. - No active intervention #Lactic acidosis, resolved #Mild VERO, resolved Disposition: Tele bed Diet: Full liquid GI prophylaxis: Protonix IV daily DVT prophylaxis: Heparin SQ Q6 hourly Code: Full code Assessment and plan discussed with my attending physician Dr. Vazquez and Dr. Enriquez (PGY-2) Dr. Clark (PGY-1) - Internal medicine resident Attending Provider Attestation/Addendum Patient with symptoatic hyponatremia requiring sodium monitoring. Avoid rapid correction of serum sodium level. no more than 6 meq over 24 hours. Cneck I and O, body weight Discussed with housestaff..
[2025-05-01 15:05] LABS: Hepatitis A Antibody IgM Non Reactive (Non React); Hepatitis B Core Antibody IgM Non Reactive (Non React); Hepatitis B Surface Antigen Non Reactive (Non React); Hepatitis C Antibody Reactive (Non React)
[2025-05-01 19:15] LABS: Sodium 119 mMol/L (136-145)
--- NOTE | 2025-05-01 19:21 | PC.NURSE ---
Per dayshift nurse. RN stated during end of shift report that hospitalists aware of body aches, but did not put no orders for medications.
[2025-05-01 23:43] LABS: Sodium 121 mMol/L (136-145)
[2025-05-02] VITALS: BP 118/62; PULSE 81; PULSE 94; RESP 16; TEMP 37.2; O2SAT 97
--- NOTE | 2025-05-02 | XR_ITS ---
Examinations: MRI Brain without intravenous contrast. Date and time of exam: May 02, 2025, 1345 hours INDICATIONS: Seizure today head pain Technique: Multiple axial and sagittal images of the brain have been obtained MRA brain carotid images without contrast obtained, including 3-D postprocessing, vascular maximum intensity projection images Findings: [place] is not enlarged. The optic chiasm and infundibular stalk are not remarkable. Prepontine and interpeduncular cisterns are not enlarged. No localized enlargement of the medulla or rick. Fourth ventricle and cerebellar tonsils normal in position. Subacute hemorrhage is not seen. Fourth ventricle is midline. Mass in the cerebellopontine angle region is not evident. 7th and 8th nerve complexes exhibits symmetry. Globes are symmetrical with no retro-orbital mass. Increased white matter signal not seen Diffusion-weighted images demonstrate no focus of restricted diffusion Mass-effect upon the ventricular system is not identified. Impression: Negative for acute hemorrhage mass effect or midline shift No acute infarct No MR findings diagnostic for demyelinating disease
[2025-05-02] MEDS: DEXTROSE 5%-WATER 1,000 ML 150 ML IV ×2 (01:17→08:41)
[2025-05-02 04:00] VITALS: BP 104/65; PULSE 73; PULSE 80; RESP 16; TEMP 36.3; O2SAT 96
[2025-05-02 04:15] LABS: Sodium 120 mMol/L (136-145)
--- NOTE | 2025-05-02 04:20 | RESP.EEG ---
EEG has been completed and is ready for MD interpretation.
[2025-05-02] MEDS: HEPARIN SOD INJ 5000 UNIT/ML VIAL SC ×3 (05:17→21:08)
[2025-05-02 06:26] LABS: Basophils # (Auto) 0.0 Thou/mm3 (0.0-0.2); Basophils % (Auto) 0 % (0-2.5); Eosinophils # (Auto) 0.1 Thou/mm3 (0.0-0.5); Eosinophils % (Auto) 2 % (0-10); Hematocrit 37.0 % (41.0-53.0); Hemoglobin 13.5 g/dL (13.5-16.0); Immature Granulocytes Auto 0.03 Thou/mm3 (0.00-0.00); Lymphocytes # (Auto) 1.9 Thou/mm3 (1.0-4.8); Lymphocytes % (Auto) 25 % (10-50); Mean Corpuscular HGB Conc 36.5 g/dl (31.0-37.0); Mean Corpuscular Hemoglobin 32.1 pg (25.0-35.0); Mean Corpuscular Volume 88 fL (80-100); Monocytes # (Auto) 0.8 Thou/mm3 (0.0-0.8); Monocytes % (Auto) 11 % (0-12); Neutrophils # (Auto) 4.7 Thou/mm3 (1.8-7.7); Neutrophils % (Auto) 62 % (37-80); Nucleated Red Blood Cell # 0.00 Thou/mm3 (0.00-0.00); Nucleated Red Blood Cell % 0 /100 WBC (0); Platelet Count 158 Thou/mm3 (140-440); RDW Standard Deviation 42.8 fL (35.1-43.9); Red Blood Count 4.20 Miln/mm3 (4.50-5.90); White Blood Count 7.6 Thou/mm3 (3.8-10.6)
[2025-05-02 07:45] LABS: Alanine Aminotransferase 143 U/L (10-49); Albumin, Serum 4.6 gm/dL (3.5-5.0); Albumin/Globulin Ratio 1.7 (1.2-2.2); Alkaline Phosphatase 59 U/L (46-116); Anion Gap 6 (7-16); Aspartate Amino Transferase 163 U/L (0-34); BUN/Creatinine Ratio 5 Ratio (12-20); Bilirubin,Total 1.2 mg/dL (0.3-1.2); Blood Urea Nitrogen 5 mg/dL (9-23); Calcium 9.2 mg/dL (8.3-10.6); Calcium (Corrected) 9.2 mg/dL (8.5-10.1); Carbon Dioxide 23.6 mMol/L (20.0-31.0); Chloride 91 mMol/L (98-107); Creatinine (Component) 1.0 mg/dL (0.6-1.3); Estimated Creatinine Clearance 96.0 mL/min (>60); Globulin 2.7 gm/dL (2.3-3.5); Glucose 114 mg/dL (74-106); Magnesium 1.9 mg/dL (1.6-2.6); Osmolality,Calculated 242 (275-295); Phosphorous 2.2 mg/dL (2.4-5.1); Potassium 3.6 mMol/L (3.4-5.1); Sodium 121 mMol/L (136-145); Total Protein 7.3 gm/dL (5.7-8.2); eGFR > 60 See Note
[2025-05-02 08:00] VITALS: BP 122/66; PULSE 80; PULSE 96; RESP 16; TEMP 36.2; O2SAT 98
--- NOTE | 2025-05-02 11:19 | PD.TNEUROPRO ---
Tele Neuro Progress Note Progress Note Date 05/02/25 [facility] TeleNeurology Consult Services Routine Consult New Patient Name:???Roe Dangelo Date of :???1985 Identification Number:??? Date of Service:???05/02/2025 09:43:25 Diagnosis?G40.89 - Other seizures Impression First seizure of life, likely provoked in the setting of hyponatremia and metabolic derangements - Notably has had significant rapid correction of sodium, please avoid rapid correction as this can be life-threatening CT head without acute findings Pending EEG Recommendations: Will also recommend MRI of the brain In general with first seizure of life with normal imaging and EEG do not without strong indications to start antiseizure medications Discussed to refrain from driving per state law guidelines (please check with your local DMV) in general recommend avoiding driving until without seizure or episode of loss of consciousness for 6 months this can be further discussed with your outpateint neurologist, maintain seizure precautions to avoid scenarios that would put oneself or others in harm if they were to have a seizure such as swimming alone, using heavy machinery, climbing ladders etc. Neurology will continue to follow for MRI brain and EEG. If without acute findings will sign off. If with acute findings please call neurology. Chief Complaint: Seizure History of Present Illness: Patient is a 40 year old Male. Patient with past medical history of schizoaffective disorder and hypertension [facility] with concern for witnessed seizure episode lasting about 3 minutes. He did hit his head on the floor. He did not have bowel or bladder incontinence. Patient was not responding afterwards. It appeared he was having trouble breathing. His blood sugar was 121 and was placed on oxygen. By the time the patient arrived to the ER he was alert and oriented. No known prior history of seizures. Labs significant for hyponatremia at 107. Hypokalemia 2.8. AST and ALT mildly elevated. Elevated CK. Afebrile. Pro-Calc negative. TSH normal. UA normal. UDS negative. Currently does have hep C. Patient was given 2 g of Keppra. Patient with diminished urine output and sodium bumped from 107 to 109-111 in 4 hours. Was given desmopressin. ? Past Medical History: ?Hypertension Medications: No Anticoagulant use? No Antiplatelet use Reviewed EMR for current medications Allergies:? Reviewed Social History: Smoking: No Family History: There is no family history of premature cerebrovascular disease pertinent to this consultation ROS : 14 Points Review of Systems was performed and was negative except mentioned in HPI. Past Surgical History: There Is No Surgical History Contributory To Today?s Visit Examination Neuro Exam: General:?Alert,Awake, Oriented to Time, Place, Person Speech:?Fluent: Language:?Intact: Face:?Symmetric: Motor Exam:?No Drift: Coordination:?Intact: no tongue bite ? ? This consult was conducted in real time using interactive audio and video technology. Patient was informed of the technology being used for this visit and agreed to proceed. Patient located in hospital and provider located at home/office setting. Telehealth Neurology consultation was provided. I spent 35 minutes providing telehealth care. This includes time spent for face to face visit via telemedicine, review of medical records, imaging studies and discussion of findings with providers, the patient and/or family. Dr Cari Graham [facility] For Inpatient follow-up with [facility] physician please call [facility] at . As we are not an outpatient service for any post hospital discharge needs please contact the hospital for assistance. If you have any questions for the [facility] physicians or need to reconsult for clinical or diagnostic changes please contact us via [facility] at Signature :?Cari Graham Most Recent Vital Signs Last Vital Signs Temp 97.2 F 05/02/25 08:00 Pulse 80 05/02/25 08:00 Resp 16 05/02/25 08:00 BP 122/66 05/02/25 08:00 Pulse Ox 98 05/02/25 08:00 O2 Del Method Room Air 05/02/25 08:00 Laboratory-Coagulation Panel PT 11.2 Seconds (9.0-12.2) 05/01/25 03:45 INR 1.1 (0.9-1.3) 05/01/25 03:45 APTT 29.1 Seconds (22.0-36.0) 05/01/25 03:45
[2025-05-02 11:32] LABS: Sodium 125 mMol/L (136-145)
[2025-05-02 12:00] VITALS: BP 129/81; PULSE 90; RESP 18; TEMP 36.2; O2SAT 99
[2025-05-02] MEDS: NAPH,KPH MBDB 1 PACKET (1.5 GM) PO (15:08)
[2025-05-02] MEDS: DESMOPRESSIN ACETATE 4 MCG/ML VIAL 2 MCG IV (15:08)
--- NOTE | 2025-05-02 15:21 | ESPR_ITS ---
Documentation for date of: 05/02/25 Subjective Subjective Interval history: Patient seen and examined at bedside, sodium overcorrected to 130. Nephrology was consulted, given desmopressin 4 mcg total, increase D5W to 200 cc/h Follow-up sodium, signed out to night team. Patient is otherwise stable no current complaints. Brain MRI was done today, neurology is following. Exam Vital Signs Temp Pulse Resp BP Pulse Ox O2 Del Method 97.2 F 90 18 129/81 99 Room Air 05/02/25 12:00 05/02/25 12:00 05/02/25 12:00 05/02/25 12:00 05/02/25 12:00 05/02/25 12:00 Narrative Exam General: No acute distress, AAO x3 Eye: Normal conjunctiva, no scleral icterus HENT: Normocephalic, atraumatic, hearing intact to conversation at normal volume, moist oral mucosa Neck: Supple, non-tender, no JVD, no lymphadenopathy Lungs: Non-labored respirations, symmetric chest rise, Clear to auscultate bilaterally, No wheezing, rhonchi, crackles Heart: Peripheral pulses intact bilaterally, Regular Rate and Rhythm. Abdomen: Soft, non-tender, non-distended, no palpable masses Musculoskeletal: Normal range of motion and strength, No cyanosis or edema, No visible joint swelling Skin: Skin is warm, dry, no rashes or lesions. Neuro: Cranial nerves II-XII grossly intact. Strength 5/5 throughout. Sensations intact to light touch. Objective Labs 05/02/25 04:39 05/02/25 18:05 Labs: Laboratory Results - last 24 hr 05/01/25 05/01/25 05/01/25 16:25 18:13 23:02 WBC RBC Hgb Hct MCV MCH MCHC RDW Std Deviation Plt Count Neut % (Auto) Lymph % (Auto) [place] % (Auto) Eos % (Auto) Baso % (Auto) Neut # (Auto) Lymph # (Auto) [place] # (Auto) Eos # (Auto) Baso # (Auto) Immature Gran # (Auto) Absolute Nucleated RBC Immature Gran % Nucleated RBC % Sodium Cancelled 119 L* 121 L Potassium Chloride Carbon Dioxide Anion Gap BUN Creatinine Estim Creat Clear Calc eGFR BUN/Creatinine Ratio Glucose Calculated Osmolality Calcium Corrected Calcium Phosphorus Magnesium Total Bilirubin AST ALT Alkaline Phosphatase Total Protein Albumin Globulin Albumin/Globulin Ratio 05/02/25 05/02/25 05/02/25 03:08 04:39 10:49 WBC 7.6 RBC 4.20 L Hgb 13.5 Hct 37.0 L MCV 88 MCH 32.1 MCHC 36.5 RDW Std Deviation 42.8 Plt Count 158 Neut % (Auto) 62 Lymph % (Auto) 25 [place] % (Auto) 11 Eos % (Auto) 2 Baso % (Auto) 0 Neut # (Auto) 4.7 Lymph # (Auto) 1.9 [place] # (Auto) 0.8 Eos # (Auto) 0.1 Baso # (Auto) 0.0 Immature Gran # (Auto) 0.03 H Absolute Nucleated RBC 0.00 Immature Gran % 0 Nucleated RBC % 0 Sodium 120 L 121 L 125 L Potassium 3.6 Chloride 91 L Carbon Dioxide 23.6 Anion Gap 6 L BUN 5 L Creatinine 1.0 Estim Creat Clear Calc 96.0 eGFR > 60 BUN/Creatinine Ratio 5 L Glucose 114 H Calculated Osmolality 242 L Calcium 9.2 Corrected Calcium 9.2 Phosphorus 2.2 L Magnesium 1.9 Total Bilirubin 1.2 D AST 163 H ALT 143 H Alkaline Phosphatase 59 Total Protein 7.3 Albumin 4.6 D Globulin 2.7 Albumin/Globulin Ratio 1.7 ABG Interpretation ABG results: 04/29/25 04/30/25 23:20 01:20 ABG pH 7.45 ABG pCO2 34 ABG pO2 90 ABG HCO3 24 ABG O2 Saturation 98 ABG Base Excess 0 VBG pH 7.35 VBG pCO2 28 L VBG pO2 113 H VBG Base Excess -9 L Quality Measures Quality Measures VTE prophylaxis (Heparin SC ) Assessment & Plan Assessment Current Active Medications: Generic Name Dose Route Start Last Admin Trade Name Freq PRN Reason Stop Dose Admin Acetaminophen 650 mg 04/30/25 02:19 Acetaminophen 325 Mg Tablet PO 05/30/25 02:18 Q6H PRN Fever >101.5 Diazepam 20 mg 04/30/25 00:38 Diazepam Inj 5 Mg/Ml Vial 2 Ml IVP 05/05/25 00:37 Q5MIN PRN SEIZURES Heparin Sodium (Porcine) 5,000 unit 04/30/25 06:00 05/02/25 15:07 Heparin Sod Inj 5000 Unit/Ml Vial SC 05/14/25 05:59 5,000 unit Q8HR ARMANDO Administration Dextrose 1,000 mls @ 150 mls/hr 05/01/25 17:00 05/02/25 08:41 D5w IV 05/31/25 16:59 150 mls/hr .[id number] ARMANDO Administration Lorazepam 2 mg 05/01/25 01:00 Lorazepam 2 Mg/Ml Vial IVP X1 PRN AGITATION (SEVERE) Olanzapine 10 mg 05/02/25 09:00 05/02/25 08:41 Olanzapine 5 Mg Tablet PO 06/01/25 08:59 10 mg QDAY ARMANDO Administration Ondansetron HCl 4 mg 04/30/25 02:19 Ondansetron Inj 2 Mg/Ml Inj 2 Ml IVP 05/30/25 02:18 Q6H PRN NAUSEA OR VOMITING Protocol Pantoprazole Sodium 40 mg 04/30/25 09:00 05/02/25 08:41 Pantoprazole Inj 40 Mg Vial IVP 05/30/25 08:59 40 mg QDAY ARMANDO Administration Plan This patient is a 40-year-old male with past medical history of schizoaffective disorder and hypertension was brought in to the ED from [facility]/group home on 04/29/2025 with chief complaint of altered mental status/postictal confusion after an episode of seizure at the group home. Patient is admitted on 04/30/2025 to ICU for management of symptomatic hypoosmolar euvolemic hyponatremia with seizures due to medication [lithium] and possible psychogenic polydipsia. On 05/01/2025, patient's sodium level has improved to 119 and was downgraded to regular floors. #Acute encephalopathy #Seizure with ground level fall #Symptomatic euvolemic hyponatremia -DDx: [place] medication causing nephrogenic DI, psychogenic polydipsia, thiazide diuretics -Patient presented with witnessed seizure in the group home with postictal confusion. Patient is on lithium 300 mg twice daily, olanzapine 10 mg once daily and hydrochlorothiazide 25 mg once a day. -Patient possibly developed excessive thirst due to polyuria caused by lithium hence he drank more water causing hyponatremia -In the ED, patient's vital showed blood pressure 140/99 heart rate 105, respiratory rate 18 and afebrile. He was saturating well on room air. -Critical sodium 107, chloride 73 and potassium 2.8. -Patient was given loading dose of Keppra 2 g x 1, IV Zofran, and Ativan 2 mg IV x 1, hypertonic saline 3% at 30 cc/h, IV 60 mEq KCl IV was started. As soon as Aceves catheter was placed patient started putting out less urine around 3.5 L therefore 3% hypertonic saline was stopped as repeat sodium showed spontaneous correction from 107->109->111 in 4 hours. Desmopressin was administered to IV 2 mcg x 1. However patient was still dumping urine around 1.8 L post first desmopressin therefore another desmopressin 2 mcg was administered and D5W at 150 cc/h were started to avoid rapid correction of sodium. -Head CT was negative. -Cervical spine CT showed no acute fracture. -U tox was negative. -MRI negative for acute stroke Plan: -On D5W at 200 cc/h to prevent rapid correction of sodium. Given desmopressin 4 mcg total. -Goal of sodium 126 until tomorrow a.m. -Seizure precautions -Aspiration precautions -Versed for breakthrough seizure as needed -Sodium checks Q4 hourly -NG tube placement if sodium continues to rise in spite of D5W -Neurology consulted, appreciate recommendations -Nephrology consulted, appreciate recommendations - Follow EEG, neurology recommendations #Hypophosphatemia -Phosphorus 1.3 on 05/01 morning labs, likely secondary to dilution from excessive water intake -Continue to monitor #History of schizoaffective disorder -Patient's home med lithium 300 mg twice daily and olanzapine 10 mg once daily. -Resumed home olanzapine 10 mg daily. Currently held lithium -Versed for breakthrough seizures #Mild hypotension -History of hypertension -Patient has been having polyuria attributing to soft blood pressure. Plan: -Holding home thiazide diuretic due to hyponatremia -Holding lisinopril due to soft blood pressure #Normocytic anemia -Patient came with hemoglobin of 13.2. -PRBC if hemoglobin drops below 7 -Daily labs #Mild hepatitis #History of hep C and hx of alcohol use -Patient has a history of reactive hep C antibody. -AST 94, ALT 198. T. bili 1.2. -Per chart review, hepatitis panel revealed hep C reactive antibody -Patient has remote history of drinking alcohol -No active intervention #Mild hyperglycemia -A1c 5.0 -Blood sugar checks ACHS #Elevated CK -In the setting of seizure -Total CK went up from 377 to 684 -s/p IVF hydration -Continue to monitor #Remote history of methamphetamine use - Recent U tox was negative. - No active intervention #Lactic acidosis, resolved #Mild VERO, resolved Disposition: Tele bed Diet: Full liquid GI prophylaxis: Protonix IV daily DVT prophylaxis: Heparin SQ Q6 hourly Code: Full code Case discussed with Attending Physician Dr. Ari Enriquez MD Internal Medicine PGY-2 Disclaimer: This note was dictated by speech recognition. Minor errors in aerial photograph interpreter may be present due to voice recognition software. Attending Provider Attestation/Addendum I have discussed and was present for the essential components of the history, physical examination, diagnosis, and treatment plan with the resident. I agree with the patient's care as documented by the resident and amended herein by me. Sarwat Espinoza DO. Although this document has been carefully reviewed, there may still be some phonetic and other typographical errors. These errors are purely grammatical due to imperfections in the software program and should not be construed in any way to compromise the substance of the patient's medical care during this visit. Patient seen and evaluated this AM. No acute events overnight, vital signs stable, patient afebrile. I/O 3440/3340 mL. Sodium 121 this morning however by the end of the afternoon it was 130, nephrology consulted, we did give a dose of DDAVP for overcorrection and uptitrate the patient's D5W. Appreciate specialist recommendations, patient still on olanzapine, holding lithium for now pending further neurology recommendations. EEG is pending
[2025-05-02 16:00] VITALS: BP 120/79; PULSE 104; PULSE 108; RESP 18; TEMP 36.9; O2SAT 98
[2025-05-02 16:19] LABS: Sodium 130 mMol/L (136-145)
[2025-05-02] MEDS: DEXTROSE 5%-WATER 1,000 ML 200 ML IV ×2 (17:13→22:13)
[2025-05-02] MEDS: DESMOPRESSIN ACET INJ 4 mCg/ML VIAL 10ML 2 MCG IV (17:29)
[2025-05-02 19:19] LABS: Sodium 125 mMol/L (136-145)
[2025-05-02 20:00] VITALS: BP 132/73; PULSE 91; RESP 17; TEMP 37.2; O2SAT 98
[2025-05-02 22:40] LABS: Sodium 126 mMol/L (136-145)
[2025-05-03] VITALS: BP 130/73; PULSE 89; RESP 16; TEMP 37.1; O2SAT 97
[2025-05-03 02:27] LABS: Sodium 125 mMol/L (136-145)
[2025-05-03] MEDS: DEXTROSE 5%-WATER 1,000 ML 200 ML IV (03:02)
[2025-05-03 04:00] VITALS: BP 144/81; PULSE 79; RESP 16; TEMP 36.9; O2SAT 98
[2025-05-03] MEDS: DEXTROSE 5%-WATER 1,000 ML 75 ML IV (04:03)
[2025-05-03] MEDS: HEPARIN SOD INJ 5000 UNIT/ML VIAL SC ×3 (05:10→21:10)
[2025-05-03 06:00] VITALS: BMI 27.3
[2025-05-03 06:00] LABS: Alanine Aminotransferase 122 U/L (10-49); Albumin, Serum 4.2 gm/dL (3.5-5.0); Albumin/Globulin Ratio 1.8 (1.2-2.2); Alkaline Phosphatase 54 U/L (46-116); Anion Gap 9 (7-16); Aspartate Amino Transferase 184 U/L (0-34); BUN/Creatinine Ratio 9 Ratio (12-20); Bilirubin,Total 0.7 mg/dL (0.3-1.2); Blood Urea Nitrogen 6 mg/dL (9-23); Calcium 9.0 mg/dL (8.3-10.6); Calcium (Corrected) 9.0 mg/dL (8.5-10.1); Carbon Dioxide 23.5 mMol/L (20.0-31.0); Chloride 92 mMol/L (98-107); Creatinine (Component) 0.7 mg/dL (0.6-1.3); Estimated Creatinine Clearance 137.1 mL/min (>60); Globulin 2.3 gm/dL (2.3-3.5); Glucose 107 mg/dL (74-106); Osmolality,Calculated 247 (275-295); Phosphorous 2.6 mg/dL (2.4-5.1); Potassium 3.7 mMol/L (3.4-5.1); Sodium 124 mMol/L (136-145); Total Protein 6.5 gm/dL (5.7-8.2); eGFR > 60 See Note
[2025-05-03 08:00] VITALS: BP 141/91; PULSE 82; PULSE 90; RESP 19; TEMP 36.7; O2SAT 98
[2025-05-03 10:42] LABS: Sodium 125 mMol/L (136-145)
[2025-05-03 12:00] VITALS: BP 151/95; PULSE 90; PULSE 97; RESP 17; TEMP 36.8; O2SAT 97
--- NOTE | 2025-05-03 14:15 | PD.NEPHCONS ---
History of Present Illness Data of Consult Requesting Physician: Ac Vazquez MD Primary Care Provider: Arminda Lin([facility])MD Consult Narrative History of present illness: This patient is a 40-year-old male with past medical history of schizoaffective disorder and hypertension was brought in to the ED from [facility] [facility] on 04[place]/[place] with chief complaint of altered mental status/postictal confusion after an episode of seizure [place] the [place] [facility]. Neurology is consulted for hyponatremia. Patient has initial sodium 107. Which is increased to 130 in couple of days when I was consulted. Consulted with the resident Dr. Enriquez. Advised to give D5W and DDAVP. Sodium level is a decrease from 130-125 today. cc:: cc: Ac Vazquez MD Review of Systems Review of Systems Systems Reviewed: All systems reviewed, normal except as documented Meds Home Medications and Allergies Allergies Allergy/AdvReac Type Severity Reaction Status Date / Time Penicillins Allergy Severe ANAPHYLAXIS Verified 12/18/24 13:52 prochlorperazine Allergy Severe SHOCK Verified 12/18/24 13:52 Exam Vital Signs Temp Pulse Resp BP Pulse Ox O2 Del Method 98.2 F 97 17 151/95 H 97 Room Air 05/03/25 12:00 05/03/25 12:00 05/03/25 12:00 05/03/25 12:00 05/03/25 12:00 05/03/25 12:00 Narrative Exam GEN. APPEARANCE: Patient is a well-hydrated, well-nourished in no acute distress. HEENT: Patient is normocephalic, atraumatic, EOMI, PERRLA. Throat is without erythema or exudate. Moist oral mucosa. NECK: Neck is supple, no JVD or bruits. CARDIOVASCULAR: Heart is regular in rhythm. S1 and S2 normal. LUNGS\CHEST: Lungs are clear to auscultation bilaterally. No rales, rhonchi, or wheezing. Normal inspection. ABDOMEN: Abdomen is soft, nontender, with normal bowel sounds. No pulsatile masses. No rebound, rigidity, or guarding. Normal inspection and palpation. EXTREMITIES: Normal inspection and palpation. No edema, clubbing, or cyanosis. SKIN: Skin is warm and dry without rashes. Normal inspection. MUSCULOSKELETAL: No calf tenderness, no joint swellings. NEURO: P oriented tentative PSYCHIATRIC: Positive for schizophrenia GENITOURINARY: No CVA tenderness. No flank masses. No suprapubic tenderness or swelling. LYMPHATICS: No adenopathy noted in the inguinal, axillary, or cervical chains. Results Labs 05/02/25 04:39 05/03/25 09:43 Labs: BMP 05/02/25 05/02/25 05/02/25 15:12 18:05 22:10 Sodium 130 L 125 L 126 L Potassium Chloride Carbon Dioxide BUN Creatinine Glucose Calcium 05/03/25 05/03/25 05/03/25 02:08 04:23 09:43 Sodium 125 L 124 L 125 L Potassium 3.7 Chloride 92 L Carbon Dioxide 23.5 BUN 6 L Creatinine 0.7 Glucose 107 H Calcium 9.0 Liver Function 05/03/25 Range/Units 04:23 Total Bilirubin 0.7 D (0.3-1.2) mg/dL AST 184 H (0-34) U/L ALT 122 H (10-49) U/L Alkaline Phosphatase 54 (46-116) U/L Albumin 4.2 (3.5-5.0) gm/dL ABG Interpretation ABG results: 04/29/25 04/30/25 23:20 01:20 ABG pH 7.45 ABG pCO2 34 ABG pO2 90 ABG HCO3 24 ABG O2 Saturation 98 ABG Base Excess 0 VBG pH 7.35 VBG pCO2 28 L VBG pO2 113 H VBG Base Excess -9 L Assessment & Plan Assessment and plan (1) Hyponatremia: Status: Acute Assessment and plan: Patient had a symptomatic hyponatremia due to multiple factors. Patient has a history of schizophrenia and was drinking a lot of fluid. Patient is on psych medication which can cause hyponatremia. When I was consulted there was overcorrection and his sodium increased to 130 yesterday. Given D5W and DDAVP by the resident and sodium decreased to 125. Continue with the supportive care Monitor closely Avoid rapid correction.
--- NOTE | 2025-05-03 14:46 | ESPR_ITS ---
Documentation for date of: 05/03/25 Subjective Subjective Interval history: No overnight events. Patient seen and examined at bedside, resting comfortably. Patient denies fevers, chills, headache, nausea, vomiting, fatigue. Stopped IV fluids, will continue to monitor sodium. Goal of 131 tomorrow a.m. Exam Vital Signs Temp Pulse Resp BP Pulse Ox O2 Del Method 98.2 F 97 17 151/95 H 97 Room Air 05/03/25 12:00 05/03/25 12:00 05/03/25 12:00 05/03/25 12:00 05/03/25 12:00 05/03/25 12:00 Narrative Exam General: No acute distress, AAO x3 Eye: Normal conjunctiva, no scleral icterus HENT: Normocephalic, atraumatic, hearing intact to conversation at normal volume, moist oral mucosa Neck: Supple, non-tender, no JVD, no lymphadenopathy Lungs: Non-labored respirations, symmetric chest rise, Clear to auscultate bilaterally, No wheezing, rhonchi, crackles Heart: Peripheral pulses intact bilaterally, Regular Rate and Rhythm. Abdomen: Soft, non-tender, non-distended, no palpable masses Musculoskeletal: Normal range of motion and strength, No cyanosis or edema, No visible joint swelling Skin: Skin is warm, dry, no rashes or lesions. Neuro: Cranial nerves II-XII grossly intact. Strength 5/5 throughout. Sensations intact to light touch. Objective Labs 05/02/25 04:39 05/03/25 16:02 Labs: Laboratory Results - last 24 hr 05/02/25 05/02/25 05/02/25 15:12 18:05 22:10 Sodium 130 L 125 L 126 L Potassium Chloride Carbon Dioxide Anion Gap BUN Creatinine Estim Creat Clear Calc eGFR BUN/Creatinine Ratio Glucose Calculated Osmolality Calcium Corrected Calcium Phosphorus Total Bilirubin AST ALT Alkaline Phosphatase Total Protein Albumin Globulin Albumin/Globulin Ratio 05/03/25 05/03/25 05/03/25 02:08 04:23 09:43 Sodium 125 L 124 L 125 L Potassium 3.7 Chloride 92 L Carbon Dioxide 23.5 Anion Gap 9 BUN 6 L Creatinine 0.7 Estim Creat Clear Calc 137.1 eGFR > 60 BUN/Creatinine Ratio 9 L Glucose 107 H Calculated Osmolality 247 L Calcium 9.0 Corrected Calcium 9.0 Phosphorus 2.6 Total Bilirubin 0.7 D AST 184 H ALT 122 H Alkaline Phosphatase 54 Total Protein 6.5 Albumin 4.2 Globulin 2.3 Albumin/Globulin Ratio 1.8 ABG Interpretation ABG results: 04/29/25 04/30/25 23:20 01:20 ABG pH 7.45 ABG pCO2 34 ABG pO2 90 ABG HCO3 24 ABG O2 Saturation 98 ABG Base Excess 0 VBG pH 7.35 VBG pCO2 28 L VBG pO2 113 H VBG Base Excess -9 L Quality Measures Quality Measures VTE prophylaxis (Heparin SC ) Assessment & Plan Assessment Current Active Medications: Generic Name Dose Route Start Last Admin Trade Name Freq PRN Reason Stop Dose Admin Acetaminophen 650 mg 04/30/25 02:19 Acetaminophen 325 Mg Tablet PO 05/30/25 02:18 Q6H PRN Fever >101.5 Diazepam 20 mg 04/30/25 00:38 Diazepam Inj 5 Mg/Ml Vial 2 Ml IVP 05/05/25 00:37 Q5MIN PRN SEIZURES Heparin Sodium (Porcine) 5,000 unit 04/30/25 06:00 05/03/25 13:35 Heparin Sod Inj 5000 Unit/Ml Vial SC 05/14/25 05:59 5,000 unit Q8HR ARMANDO Administration Dextrose 1,000 mls @ 75 mls/hr 05/03/25 03:19 05/03/25 08:29 D5w IV 06/02/25 03:18 0 mls/hr On Hold: 05/03/25 08:15 .[id number] ARMANDO Infusion Lorazepam 2 mg 05/01/25 01:00 Lorazepam 2 Mg/Ml Vial IVP X1 PRN AGITATION (SEVERE) Olanzapine 10 mg 05/02/25 09:00 05/03/25 08:23 Olanzapine 5 Mg Tablet PO 06/01/25 08:59 10 mg QDAY ARMANDO Administration Ondansetron HCl 4 mg 04/30/25 02:19 Ondansetron Inj 2 Mg/Ml Inj 2 Ml IVP 05/30/25 02:18 Q6H PRN NAUSEA OR VOMITING Protocol Pantoprazole Sodium 40 mg 04/30/25 09:00 05/03/25 08:24 Pantoprazole Inj 40 Mg Vial IVP 05/30/25 08:59 40 mg QDAY ARMANDO Administration Plan This patient is a 40-year-old male with past medical history of schizoaffective disorder and hypertension was brought in to the ED from [facility]/group home on 04/29/2025 with chief complaint of altered mental status/postictal confusion after an episode of seizure at the group home. Patient is admitted on 04/30/2025 to ICU for management of symptomatic hypoosmolar euvolemic hyponatremia with seizures due to medication [lithium] and possible psychogenic polydipsia. On 05/01/2025, patient's sodium level has improved to 119 and was downgraded to regular floors. #Acute encephalopathy #Seizure with ground level fall #Symptomatic euvolemic hyponatremia DDx: [place] medication causing nephrogenic DI, psychogenic polydipsia, thiazide diuretics Patient presented with witnessed seizure in the group home with postictal confusion. Patient is on lithium 300 mg twice daily, olanzapine 10 mg once daily and hydrochlorothiazide 25 mg once a day. Patient possibly developed excessive thirst due to polyuria caused by lithium hence he drank more water causing hyponatremia In the ED, patient's vital showed blood pressure 140/99 heart rate 105, respiratory rate 18 and afebrile. He was saturating well on room air. Critical sodium 107, chloride 73 and potassium 2.8. Patient was given loading dose of Keppra 2 g x 1, IV Zofran, and Ativan 2 mg IV x 1, hypertonic saline 3% at 30 cc/h, IV 60 mEq KCl IV was started. As soon as Aceves catheter was placed patient started putting out less urine around 3.5 L therefore 3% hypertonic saline was stopped as repeat sodium showed spontaneous correction from 107->109->111 in 4 hours. Desmopressin was administered to IV 2 mcg x 1. However patient was still dumping urine around 1.8 L post first desmopressin therefore another desmopressin 2 mcg was administered and D5W at 150 cc/h were started to avoid rapid correction of sodium. Head CT was negative. Cervical spine CT showed no acute fracture. U tox was negative. MRI negative for acute stroke Patient received D5W and desmopressin due to overcorrection of sodium, sodium levels were back to goal range. D5W held. Plan: -Goal of sodium 131 until tomorrow a.m. -Seizure precautions -Aspiration precautions -Versed for breakthrough seizure as needed -Sodium checks Q6 hourly -Neurology consulted, appreciate recommendations -Nephrology consulted, appreciate recommendations - Follow EEG, neurology recommendations #Hypophosphatemia -Phosphorus 1.3 on 05/01 morning labs, likely secondary to dilution from excessive water intake -Continue to monitor #History of schizoaffective disorder -Patient's home med lithium 300 mg twice daily and olanzapine 10 mg once daily. -Resumed home olanzapine 10 mg daily. Currently held lithium -Versed for breakthrough seizures #Mild hypotension -History of hypertension -Patient has been having polyuria attributing to soft blood pressure. Plan: -Holding home thiazide diuretic due to hyponatremia -Holding lisinopril due to soft blood pressure #Normocytic anemia -Patient came with hemoglobin of 13.2. -PRBC if hemoglobin drops below 7 -Daily labs #Mild hepatitis #History of hep C and hx of alcohol use -Patient has a history of reactive hep C antibody. -AST 94, ALT 198. T. bili 1.2. -Per chart review, hepatitis panel revealed hep C reactive antibody -Patient has remote history of drinking alcohol -No active intervention #Mild hyperglycemia -A1c 5.0 -Blood sugar checks ACHS #Elevated CK -In the setting of seizure -Total CK went up from 377 to 684 -s/p IVF hydration -Continue to monitor #Remote history of methamphetamine use - Recent U tox was negative. - No active intervention #Lactic acidosis, resolved #Mild VERO, resolved Disposition: Tele bed Diet: Regular GI prophylaxis: Protonix IV daily DVT prophylaxis: Heparin SQ Q8 hourly Code: Full code Case discussed with Attending Physician Dr. Ari Adams MD Internal Medicine PGY-2 Disclaimer: This note was dictated by speech recognition. Minor errors in undercover cop may be present due to voice recognition software. Attending Provider Attestation/Addendum I have discussed and was present for the essential components of the history, physical examination, diagnosis, and treatment plan with the resident. I agree with the patient's care as documented by the resident and amended herein by me. Sarwat Espinoza DO. Although this document has been carefully reviewed, there may still be some phonetic and other typographical errors. These errors are purely grammatical due to imperfections in the software program and should not be construed in any way to compromise the substance of the patient's medical care during this visit. Patient seen and evaluated this AM. No acute events overnight, vital signs stable, patient afebrile, I/O, 4495/4050 mL overnight. Sodium today 120 4 in the AM, did uptrend to 125. We have held D5W for now, will continue to monitor, sodium checks every 6 hours, nephrology consulted, appreciate recommendations, likely discharge in 1 to 2 days pending normalization of his sodium
[2025-05-03 16:00] VITALS: BP 141/90; PULSE 88; PULSE 93; RESP 16; TEMP 36.1; O2SAT 98
[2025-05-03 16:28] LABS: Sodium 133 mMol/L (136-145)
[2025-05-03 20:00] VITALS: BP 139/69; PULSE 95; RESP 18; TEMP 36.8; O2SAT 98
[2025-05-03] MEDS: DEXTROSE 5%-WATER 1,000 ML 150 ML IV (21:15)
[2025-05-03 23:02] LABS: Sodium 136 mMol/L (136-145)
--- NOTE | 2025-05-03 23:37 | PD.VPROG1 ---
Telemedicine visit statement This visit was conducted with the use of interactive audio and video telecommunications system that permits real time communication between the patient and the provider. Patient's verbal consent for virtual visit was obtained on 05/03/25 at 2337. Documentation for date of: 05/03/25 Subjective Subjective Interval history: Patient is in MedSurg, no seizures reported night. No new symptoms reported Virtual exam Vital Signs Temp Pulse Resp BP Pulse Ox O2 Del Method 98.3 F 95 18 139/69 H 98 Room Air 05/03/25 20:00 05/03/25 20:00 05/03/25 20:00 05/03/25 20:00 05/03/25 20:00 05/03/25 20:00 Objective Labs 05/02/25 04:39 05/03/25 22:33 Labs: Laboratory Results - last 24 hr 05/03/25 05/03/25 05/03/25 02:08 04:23 09:43 Sodium 125 L 124 L 125 L Potassium 3.7 Chloride 92 L Carbon Dioxide 23.5 Anion Gap 9 BUN 6 L Creatinine 0.7 Estim Creat Clear Calc 137.1 eGFR > 60 BUN/Creatinine Ratio 9 L Glucose 107 H Calculated Osmolality 247 L Calcium 9.0 Corrected Calcium 9.0 Phosphorus 2.6 Total Bilirubin 0.7 D AST 184 H ALT 122 H Alkaline Phosphatase 54 Total Protein 6.5 Albumin 4.2 Globulin 2.3 Albumin/Globulin Ratio 1.8 05/03/25 05/03/25 16:02 22:33 Sodium 133 L 136 Potassium Chloride Carbon Dioxide Anion Gap BUN Creatinine Estim Creat Clear Calc eGFR BUN/Creatinine Ratio Glucose Calculated Osmolality Calcium Corrected Calcium Phosphorus Total Bilirubin AST ALT Alkaline Phosphatase Total Protein Albumin Globulin Albumin/Globulin Ratio ABG Interpretation ABG results: 04/29/25 04/30/25 23:20 01:20 ABG pH 7.45 ABG pCO2 34 ABG pO2 90 ABG HCO3 24 ABG O2 Saturation 98 ABG Base Excess 0 VBG pH 7.35 VBG pCO2 28 L VBG pO2 113 H VBG Base Excess -9 L Assessment & Plan Problem List (1) Seizure: Status: Acute Assessment and plan: Secondary to metabolic causes: Hyponatremia Now normalized EEG did not show any epileptiform discharges (2) Rhabdomyolysis: Status: Acute Assessment and plan: On IV fluids, even though the last CK went from 300-600s on (3) LFT elevation: Status: Acute Assessment and plan: Secondary to chronic alcohol use/hepatitis C (4) Hyponatremia: Status: Acute Assessment and plan: Normalized now Treated with desmopressin
[2025-05-04] VITALS: BP 141/88; PULSE 85; RESP 16; TEMP 37.2; O2SAT 98
[2025-05-04] MEDS: DEXTROSE 5%-WATER 1,000 ML 150 ML IV ×2 (03:46→08:50)
[2025-05-04 04:00] VITALS: BP 142/94; PULSE 84; RESP 17; TEMP 37.3; O2SAT 98
[2025-05-04] MEDS: HEPARIN SOD INJ 5000 UNIT/ML VIAL SC ×2 (05:12→13:41)
[2025-05-04 06:00] VITALS: BMI 27.3
[2025-05-04 06:22] LABS: Alanine Aminotransferase 126 U/L (10-49); Albumin, Serum 4.7 gm/dL (3.5-5.0); Albumin/Globulin Ratio 1.7 (1.2-2.2); Alkaline Phosphatase 60 U/L (46-116); Anion Gap 9 (7-16); Aspartate Amino Transferase 237 U/L (0-34); BUN/Creatinine Ratio 8 Ratio (12-20); Bilirubin,Total 0.5 mg/dL (0.3-1.2); Blood Urea Nitrogen 6 mg/dL (9-23); Calcium 9.7 mg/dL (8.3-10.6); Calcium (Corrected) 9.7 mg/dL (8.5-10.1); Carbon Dioxide 23.9 mMol/L (20.0-31.0); Chloride 100 mMol/L (98-107); Creatinine (Component) 0.8 mg/dL (0.6-1.3); Estimated Creatinine Clearance 119.9 mL/min (>60); Globulin 2.7 gm/dL (2.3-3.5); Glucose 123 mg/dL (74-106); Osmolality,Calculated 264 (275-295); Potassium 4.0 mMol/L (3.4-5.1); Sodium 133 mMol/L (136-145); Total Protein 7.4 gm/dL (5.7-8.2); eGFR > 60 See Note
[2025-05-04 08:00] VITALS: BP 130/84; PULSE 79; PULSE 86; RESP 16; TEMP 36.6; O2SAT 98
--- NOTE | 2025-05-04 09:48 | PC.SS ---
Follow up note: Correcting sodium. On IV fluids.
[2025-05-04 12:00] VITALS: BP 139/87; PULSE 81; PULSE 93; RESP 19; TEMP 37.1; O2SAT 97
[2025-05-04] MEDS: ACETAMINOPHEN 325 MG TABLET 650 MG PO (13:39)
--- NOTE | 2025-05-04 14:19 | PD.RESPRO ---
Documentation for date of: 05/04/25 Exam Vital Signs Temp Pulse Resp BP Pulse Ox O2 Del Method 98.7 F 93 19 139/87 H 97 Room Air 05/04/25 12:00 05/04/25 12:00 05/04/25 12:00 05/04/25 12:00 05/04/25 12:00 05/04/25 08:00 Objective Labs 05/02/25 04:39 05/04/25 04:25 Labs: Laboratory Results - last 24 hr 05/03/25 05/03/25 05/04/25 16:02 22:33 04:25 Sodium 133 L 136 133 L Potassium 4.0 Chloride 100 Carbon Dioxide 23.9 Anion Gap 9 BUN 6 L Creatinine 0.8 Estim Creat Clear Calc 119.9 eGFR > 60 BUN/Creatinine Ratio 8 L Glucose 123 H Calculated Osmolality 264 L Calcium 9.7 Corrected Calcium 9.7 Total Bilirubin 0.5 AST 237 H ALT 126 H Alkaline Phosphatase 60 Total Protein 7.4 Albumin 4.7 D Globulin 2.7 Albumin/Globulin Ratio 1.7 ABG Interpretation ABG results: 04/29/25 04/30/25 23:20 01:20 ABG pH 7.45 ABG pCO2 34 ABG pO2 90 ABG HCO3 24 ABG O2 Saturation 98 ABG Base Excess 0 VBG pH 7.35 VBG pCO2 28 L VBG pO2 113 H VBG Base Excess -9 L Quality Measures Quality Measures VTE prophylaxis (Heparin SC ) Assessment & Plan Assessment Current Active Medications: Generic Name Dose Route Start Last Admin Trade Name Freq PRN Reason Stop Dose Admin Acetaminophen 650 mg 04/30/25 02:19 05/04/25 13:39 Acetaminophen 325 Mg Tablet PO 05/30/25 02:18 650 mg Q6H PRN Administration Fever >101.5 Diazepam 20 mg 04/30/25 00:38 Diazepam Inj 5 Mg/Ml Vial 2 Ml IVP 05/05/25 00:37 Q5MIN PRN SEIZURES Heparin Sodium (Porcine) 5,000 unit 04/30/25 06:00 05/04/25 13:41 Heparin Sod Inj 5000 Unit/Ml Vial SC 05/14/25 05:59 5,000 unit Q8HR ARMANDO Administration Lorazepam 2 mg 05/01/25 01:00 Lorazepam 2 Mg/Ml Vial IVP X1 PRN AGITATION (SEVERE) Olanzapine 10 mg 05/02/25 09:00 05/04/25 08:50 Olanzapine 5 Mg Tablet PO 06/01/25 08:59 10 mg QDAY ARMANDO Administration Ondansetron HCl 4 mg 04/30/25 02:19 Ondansetron Inj 2 Mg/Ml Inj 2 Ml IVP 05/30/25 02:18 Q6H PRN NAUSEA OR VOMITING Protocol Pantoprazole Sodium 40 mg 04/30/25 09:00 05/04/25 08:49 Pantoprazole Inj 40 Mg Vial IVP 05/30/25 08:59 40 mg QDAY ARMANDO Administration
--- NOTE | 2025-05-04 14:19 | PD.RESDS ---
Planned Discharge Date 05/04/25 DS: Providers Provider Date of admission: 04/30/25 02:19 Primary care physician: Arminda Lin([facility])MD Admitting Provider: Chhaya Bright MD Attending Provider on Admission: Ac Vazquez MD Consults: 04/30/25 00:11 Consult to [employer] Stat Comment: Hyponatremia Consulting Provider: Chhaya Bright 05/01/25 12:57 Consult to Neurology / Tele-Neurology Routine Comment: Consulting Provider: Carlos De La Paz 05/02/25 14:31 Consult to Nephrology Routine Comment: Hyponatremia Consulting Provider: Trav Brody Attending Provider on DC: Ac Vazquez MD Discharging Provider: Ac Vazquez MD DS: Diagnosis Problem List Completed Was Problem List Reviewed/Reconciled?: Yes Hospital Course Hospital Course Hospital course: Summary: This patient is a 40-year-old male with past medical history of schizoaffective disorder and hypertension was brought in to the ED from [facility]prison on 04/29/2025 with chief complaint of altered mental status/postictal confusion after an episode of seizure at the prison. Patient is admitted on 04/30/2025 to ICU for management of symptomatic hypoosmolar euvolemic hyponatremia with seizures due to medication [lithium] and possible psychogenic polydipsia. On 05/01/2025, patient's sodium level has improved to 119 and was downgraded to regular floors. On admission, patient was given a loading dose of Keppra as well as medication for breakthrough and started on hypertonic saline. However patient was noted to have decreased urine output therefore hypertonic saline decreased and desmopressin administered. Following desmopressin and hypertonic saline, sodium overcorrected and patient was started on D5W to avoid rapid correction. Imaging negative as below. Salome held for history of schizoaffective disorder and olanzapine continued. Of note patient was also noted to have normocytic anemia and mild hepatitis likely secondary to history of hep C and alcohol use, both of which remained stable. On discharge, patient is hemodynamically stable, labs and vitals reviewed to be stable and patient is ready to be discharged home. Imaging: Head CT was negative. Cervical spine CT showed no acute fracture. MRI negative for acute stroke Discharge Recommendations: - Please take all medications as prescribed - HOLD Salome until you see your psychiatrist as lithium may have contributed to your low sodium - HOLD home diuretics like HCTZ as this medication may have contributed to your low sodium - Avoid drinking excess water - Continue all home medications except as above - Please follow up with your PCP within one week of discharge - If your symptoms worsen, please seek immediate medical attention and return to your nearest emergency room. - If you do not have a PCP, you may follow up at the [facility] at [address] [place] [address] [address], [facility] [id number], Hospital Diagnoses: #Acute encephalopathy #Seizure with ground level fall #Symptomatic euvolemic hyponatremia #Hypophosphatemia #History of schizoaffective disorder #Normocytic anemia #Mild hepatitis #History of hep C and hx of alcohol use #Mild hyperglycemia #Elevated CK #Remote history of methamphetamine use #Lactic acidosis, resolved Plan of care discussed with attending Dr. Vazquez. Joyce Bosch, DO Internal Medicine, PGY-1 Senior Resident Attestation: I discussed with and supervised the internal medicine hospitalist physician involved in the care of this patient. I personally saw and examined the patient and discussed the assessment and plan with the entire medicine team, including my attending. I agree with the discharge plan as documented above. Luis Escalera MD PGY3 Internal Medicine Time Spent with Patient Time attestation: Total time spent providing and/or coordinating discharge services: Time spent: Greater than 30 minutes Exam Vital Signs Temp Pulse Resp BP Pulse Ox O2 Del Method 98.7 F 93 19 139/87 H 97 Room Air 05/04/25 12:00 05/04/25 12:00 05/04/25 12:00 05/04/25 12:00 05/04/25 12:00 05/04/25 08:00 Narrative Exam GENERAL: AOx3, no acute distress, lying down comfortably in bed HEENT: mucous membranes moist, bilateral sclera anicteric CARDIOVASCULAR: regular rate and rhythm, S1/S2 present, no murmurs appreciated PULMONARY: clear to auscultation bilaterally, no rales/rhonchi/wheezes ABDOMINAL: soft, non-tender, non-distended, no rebound/guarding, bowel sounds present EXTREMITIES: no peripheral edema SKIN: warm and dry, intact, no rashes NEURO: CN II-XII grossly intact, no focal deficits, alert, following commands Discharge Plan Plan Patient Disposition: HOME (Self Care) Care Plan Goals: Discharge Recommendations: - Please take all medications as prescribed - HOLD Salome until you see your psychiatrist as lithium may have contributed to your low sodium - HOLD home diuretics like HCTZ as this medication may have contributed to your low sodium - Avoid drinking excess water - Continue all home medications except as above - Please follow up with your PCP within one week of discharge - If your symptoms worsen, please seek immediate medical attention and return to your nearest emergency room. - If you do not have a PCP, you may follow up at the [facility] at [address] [place] [address] [address], [facility] [address], Prescriptions/Referrals Prescriptions/Med Rec: New olanzapine 5 mg Tablet 10 mg PO QDAY 30 Days Qty: 60 1RF Discontinued diltiazem HCl [Cardizem CD] 180 mg capsule,extended release 24hr 180 mg PO QDAY MDD 1 Qty: 30 0RF lisinopril 10 mg tablet 10 mg PO QDAY Qty: 30 0RF hydrochlorothiazide 25 mg tablet 25 mg PO QDAY Qty: 30 0RF Referrals: Delia([facility])Arminda MD [Primary Care Provider] Patient/Caregiver Discharge Instructions Education Materials: Hyponatremia Dc Print Language: Persian Stand Alone Forms: Irina Award Info., Patient Portal Info Letter Discharge Order Discharge Orders: Discharge (Routine); Ordered 05/04/25 Ordered By: Servando Foy Quality Discharge Quality Measures VTE prophylaxis Attestestation Attestation I discussed with and supervised the resident physician who took care of the patient. I agree with the assessment and discharge plan as above. Follow-up with PCP and return to the ER for recurrent symptoms. Risks for noncompliance discussed with this patient
--- NOTE | 2025-05-04 15:03 | PC.SS ---
SS spoke to patient's sister who states pt is unable to stay with her. SS met with pt and offered homeless shelters and pt refused. Pt is requesting to dc back to the [facility], [facility]. SS offered to setup transportation and pt refused. Pt requested to go walking once he d/c. Pt states he has shirt, sweater, pants, and shoes. SS provided pt with long sleeve shirt. Bedside nurse, Jackelin is aware and is ordering a sack lunch for pt to take with him. SS offered community resources and pt refused.
[2025-05-04 16:00] VITALS: BP 159/95; PULSE 92; RESP 16; TEMP 36.6; O2SAT 98
== END 2025-05-04 16:10 | disposition home or self-care (01) | DRG 426 ==
LOC: SERX 04-30 02:49 → SERHOLD 04-30 02:56 → S2SX 04-30 04:10 → S3NX 05-01 13:30 → S3SX 05-01 19:00
PROVIDERS: Internal Medicine; Student in an Organized Health Care Education/Training Program; Admitting Provider Student in an Organized Health Care Education/Training Program; Emergency Provider Emergency Medicine; PCP Internal Medicine; Visit Provider Internal Medicine
DX: E87.1 Hypo-osmolality and hyponatremia (principal); G40.89 Other seizures; G93.40 Encephalopathy, unspecified; M62.82 Rhabdomyolysis; N17.9 Acute kidney failure, unspecified; E87.20 Acidosis, unspecified; I10 Essential (primary) hypertension; M06.9 Rheumatoid arthritis, unspecified; F31.9 Bipolar disorder, unspecified; F25.9 Schizoaffective disorder, unspecified; E87.6 Hypokalemia; W18.30XA Fall on same level, unspecified, initial encounter; B19.20 Unspecified viral hepatitis C without hepatic coma; D64.9 Anemia, unspecified; E83.39 Other disorders of phosphorus metabolism; R73.9 Hyperglycemia, unspecified; Z79.899 Other long term (current) drug therapy; Z88.0 Allergy status to penicillin; Z88.8 Allergy status to other drugs, medicaments and biological substances
CPT/HCPCS: 36415; 36600; 51701; 51702; 70450; 70544; 70551; 71045; 71250; 72125; 74176; 80048; 80053; 80061; 80074; 80178; 80307; 80320; 81001; 82248; 82436; 82550; 82803; 83036; 83605; 83735; 84100; 84133; 84145; 84295; 84300; 84443; 85025; 85610; 85652; 85730; 86140; 87081; 87811; 93005; 93225; 95816; 96361; 96365; 96374; 96375; 99285; A4314; J1630; J1644; J1953; J2060; J2270; J2405; J2470; J2597; J3475; J3480; J7030; J7070; J7131; J7999; A9270; G0480